=== PATIENT | female | born 1950 | race Hispanic/Latino ===

== ENCOUNTER 2016-10-28 13:22 | Inpatient (IN) | payer MEDICARE ==
[2016-10-28 13:23] VITALS: BMI 34.0
[2016-10-28] MEDS ORDERED: Sodium Chloride 0.9% 1,000 ML IV STA ×2 (13:40→14:01)
[2016-10-28] MEDS ORDERED: Vancomycin 1gm in NS 250ml 1 GM/250 ML BAG IVPB STA (13:42)
[2016-10-28] MEDS ORDERED: Piperacillin/Tazobact 3.375 gm 100 ML IVPB STA ×2 (13:42→19:37)
--- NOTE | 2016-10-28 13:45 | ED PDOC ---
Arrival/HPI - General Chief Complaint: Trauma Time Seen by Provider: 10/28/16 13:26 Historian: Patient - History of Present Illness Narrative History of Present Illness (Text): 10/28/16 13:30 Medina Babin is a 65 year old female, whose past medical history includes hypertension and hyperlipidemia, who presents to the emergency department complaining of reported fall and weakness as per EMS. Patient was found in an unkempt home. Limited history is provided. However patient is able to states that she was trying to cut a watermelon at the time. Patient is noted to be febrile in the emergency department. Patient denies any other complaints at this time. Time/Duration: 1-3 hours Symptom Course: Unchanged Activities at Onset: Light Context: Home Past Medical History - Provider Review Nursing Documentation Reviewed: Yes - Infectious Disease Hx of Infectious Diseases: None - Cardiac Hx Hypertension: Yes Hx Pacemaker: No - Neurological Hx Parkinson's Disease: Yes - HEENT Hx Cataracts: Yes (b/l sx) - Endocrine/Metabolic Hx Hyperthyroidism: Yes - Hematological/Oncological Hx Blood Transfusions: No Hx Blood Transfusion Reaction: No - Integumentary Other/Comment: dark skin under both eyes due to "eye drops for cataracts caused swelling, swelling went down and caused darkened skin", ble dry skin - Musculoskeletal/Rheumatological Hx Musculoskeletal Disorders: Yes - Gastrointestinal Hx Gastritis: Yes - Genitourinary/Gynecological Hx Incontinence: Yes (leakage has weak bladder) - Psychiatric Hx Depression: Yes Hx Emotional Abuse: No Hx Physical Abuse: No Hx Substance Use: No Other/Comment: ANXIETY - Surgical History Other/Comment: left breast lump removed negative 2014 - Anesthesia Hx Anesthesia: No Hx Anesthesia Reactions: No Hx Malignant Hyperthermia: No - Suicidal Assessment Feels Threatened In Home Enviroment: No Family/Social History - Physician Review Nursing Documentation Reviewed: Yes Family/Social History: No Known Family HX Smoking Status: Never Smoked Hx Alcohol Use: Yes (RARE) Hx Substance Use: No Hx Substance Use Treatment: No Allergies/Home Meds Allergies/Adverse Reactions: Allergies No Known Allergies Allergy (Verified 07/24/12 09:59) Home Medications: Home Meds Medication Instructions Recorded Confirmed QUEtiapine [SEROquel] 50 mg PO HS 07/24/12 10/28/16 Ziprasidone HCl [Geodon] 80 mg PO BID 07/30/13 10/28/16 Levothyroxine [Synthroid] 88 mcg PO DAILY 02/02/16 10/28/16 [place] Carbonate [[place] 300 mg PO BID 02/02/16 10/28/16 Carbonate 300MG] Pramipexole Di-HCl [Mirapex] 1 mg PO TID 02/02/16 10/28/16 Telmisartan [Micardis] 40 mg PO DAILY 02/02/16 10/28/16 [id number] CD [Cardizem CD] 240 mg PO DAILY 02/02/16 10/28/16 metFORMIN [glucOPHAGE] 500 mg PO BID 10/28/16 10/28/16 Review of Systems - Physician Review All systems were reviewed & negative as marked: Yes - Review of Systems Constitutional: Other (generalized weakness; fall) Eyes: absent: Vision Changes ENT: absent: Hearing Changes Respiratory: absent: SOB, Cough Cardiovascular: absent: Chest Pain Gastrointestinal: absent: Abdominal Pain Genitourinary Female: absent: Dysuria, Frequency Musculoskeletal: absent: Arthralgias, Back Pain Skin: absent: Rash, Pruritis Neurological: absent: Headache Endocrine: absent: Diaphoresis Hemo/Lymphatic: absent: Adenopathy Physical Exam Vital Signs Reviewed: Yes Vital Signs Temp Pulse Pulse Resp BP Pulse Ox 10/29/16 10:10 99 H 124/60 10/29/16 10:04 93 H 124/60 10/29/16 04:00 108 H 35 H 132/63 94 L 10/29/16 03:00 103 H 34 H 144/76 98 10/29/16 02:30 104 H 35 H 98 10/29/16 02:20 103 H 32 H 97 10/29/16 02:10 106 H 41 H 96 10/29/16 02:01 107 H 34 H 130/74 94 L 10/29/16 02:00 107 H 35 H 94 L 10/29/16 01:50 105 H 33 H 93 L 10/29/16 01:47 111 H 31 H 10/29/16 01:46 111 H 36 H 10/29/16 01:45 112 H 30 H 10/29/16 01:40 108 H 34 H 85 L 10/29/16 01:30 111 H 35 H 177/88 H 85 L 10/29/16 01:20 105 H 39 H 100 10/29/16 01:15 103 H 33 H 147/88 100 10/29/16 01:10 103 H 33 H 99 10/29/16 01:00 101 H 34 H 150/71 93 L 10/29/16 00:50 100 H 28 H 98 10/29/16 00:45 100 H 19 183/77 H 100 10/29/16 00:40 102 H 59 H 97 10/29/16 00:30 99 H 28 H 148/70 99 10/29/16 00:29 101 H 21 98 10/29/16 00:20 99 H 28 H 98 10/29/16 00:15 100 H 30 H 138/73 100 10/29/16 00:10 102 H 32 H 99 10/29/16 00:00 98.8 F 101 H 32 H 123/77 98 10/28/16 23:50 99 H 28 H 97 10/28/16 23:45 98 H 27 H 125/52 L 98 10/28/16 23:40 99 H 32 H 96 10/28/16 23:30 99 H 30 H 122/74 98 10/28/16 23:20 101 H 32 H 98 10/28/16 23:15 105 H 32 H 139/70 99 10/28/16 23:10 103 H 29 H 97 10/28/16 23:01 101 H 51 H 152/68 H 98 10/28/16 23:00 101 H 95 10/28/16 22:50 102 H 28 H 96 10/28/16 22:45 104 H 31 H 143/77 96 10/28/16 22:40 103 H 37 H 96 10/28/16 22:30 104 H 16 152/93 H 96 10/28/16 22:20 104 H 37 H 94 L 10/28/16 22:15 103 H 21 130/53 L 92 L 10/28/16 22:10 102 H 28 H 96 10/28/16 22:00 105 H 35 H 137/84 88 L 10/28/16 21:58 105 H 10/28/16 21:50 105 H 24 96 10/28/16 21:45 104 H 25 H 148/64 97 10/28/16 21:40 104 H 28 H 95 10/28/16 21:30 105 H 33 H 137/66 92 L 10/28/16 21:20 107 H 51 H 96 10/28/16 21:19 108 H 20 10/28/16 21:18 106 H 10/28/16 21:15 107 H 28 H 124/84 80 L 10/28/16 21:10 106 H 26 H 97 10/28/16 21:00 107 H 25 H 123/55 L 90 L 10/28/16 20:50 108 H 27 H 96 10/28/16 20:45 103 H 31 H 139/63 81 L 10/28/16 20:40 106 H 35 H 96 10/28/16 20:35 109 H 31 H 96 10/28/16 20:25 101 F H 10/28/16 20:20 102.4 F H 113 H 23 155/66 H 95 10/28/16 20:05 102.4 F H 111 H 22 141/66 95 10/28/16 19:50 102.4 F H 113 H 23 150/66 95 10/28/16 19:35 102.4 F H 115 H 25 H 137/55 L 96 10/28/16 19:20 102.4 F H 116 H 26 H 163/69 H 95 10/28/16 17:00 99.3 F 116 H 116 H 14 121/61 10/28/16 16:46 100 H 19 130/79 98 10/28/16 15:01 121/61 10/28/16 15:00 99.3 F 10/28/16 13:57 101.2 F H 10/28/16 13:39 101.2 F H 116 H 14 119/72 97 10/28/16 13:25 101.2 F H 117 H 20 119/72 96 Temperature: Febrile Blood Pressure: Normal Pulse: Tachycardic Respiratory Rate: Normal Pain Distress: None - Systems Exam Head: Present: Atraumatic, Normocephalic Pupils: Present: PERRL Extroacular Muscles: Present: EOMI Conjunctiva: Present: Normal Mouth: Present: Moist Mucous Membranes Neck: Present: Normal Range of Motion Respiratory/Chest: Present: Clear to Auscultation, Good Air Exchange. No: Respiratory Distress, Accessory Muscle Use Cardiovascular: Present: Tachycardic. No: Murmurs Abdomen: Present: Normal Bowel Sounds. No: Tenderness, Distention, Peritoneal Signs Back: Present: Normal Inspection Upper Extremity: Present: Normal Inspection. No: Cyanosis, Edema Lower Extremity: Present: Normal Inspection. No: Edema Skin: Present: Warm, Dry, Normal Color. No: Rashes Medical Decision Making ED Course and Treatment: 10/28/16 13:46 Impression: 65 year old female brought in by EMS complaining of reported fall and weakness today. Differential Diagnosis included but are not limited to: Plan: -- EKG -- Chest X-ray -- Head CT w/o contrast -- VBG and Blood Culture -- Urinalysis and Urine Culture -- Labs -- Tylenol, Vancomycin, Zosyn, and IV Fluids -- Reassess and disposition Prior Visits: Notes and results from previous visits were reviewed. Patient last seen in the ED on 02/02/16 for nausea and vomiting for one week. Patient was admitted to hospitalist care for further evaluation. Progress Notes: EKG: Ordered, reviewed, and independently interpreted the EKG. Rate : 110 BPM Rhythm : sinus tachycardia Interpretation : Non-specific ST-T-wave changes Comparison : No interval change from previous on 01/201610/28/16 18:[address] with obstrstring stone. discussed with dr redman. will take pt to or. dr kat accepts. LA improving. b/p 130 systolic stable for tele. - Lab Interpretations Lab Results: 10/28/16 13:40 10/28/16 13:40 Lab Results 10/28/16 13:40: [place] 0.5 10/28/16 13:40: pO2 59 H, VBG pH 7.35, VBG pCO2 36.0 L, VBG HCO3 19.9 L, VBG Total CO2 21.0 L, VBG O2 Sat (Calc) 93.6 H, VBG Base Excess -5.1 L, VBG Potassium 4.2, Sodium 139.0, Chloride 101.0, Glucose 333 H, Lactate 5.5 H*, FiO2 21.0, Venous Blood Potassium 4.2 10/28/16 13:40: Sodium 140, Chloride 103, Potassium 4.1, Carbon Dioxide 19 L, Anion Gap 22 H, BUN 16, Creatinine 1.5 H, Est GFR ( Amer) 42, Est GFR ( Non-Af Amer) 35, Random Glucose 319 H*, Calcium 9.9, Magnesium 2.3 H, Total Bilirubin 0.8, AST 41 H, ALT 61 H, Alkaline Phosphatase 155 H, Lactate Dehydrogenase 581, Total Creatine Kinase 735 H, CK-MB (CK-2) 3.3, CK-MB (CK-2) % Cancelled, Troponin I < 0.01, Total Protein 8.0, Albumin 4.4, Globulin 3.6, Albumin/Globulin Ratio 1.2 10/28/16 13:40: PT 11.6, INR 1.07, APTT 28.7 10/28/16 13:40: WBC 21.9 H D, RBC 4.43, Hgb 13.3, Hct 40.6, MCV 91.6, MCH 30.0, MCHC 32.8, RDW 15.0 H, Plt Count 263, MPV 11.1 H, Gran % 90.9 H, Lymph % (Auto) 2.7 L, [place] % (Auto) 6.3 H, Eos % (Auto) 0.0 L, Baso % (Auto) 0.1, Gran # 19.92 H, Lymph # 0.6 L, [place] # 1.4 H, Eos # 0.0, Baso # 0.02, Neutrophils % (Manual) 92 H, Band Neutrophils % 2, Lymphocytes % (Manual) 5 L, Monocytes % (Manual) 1, Platelet Evaluation Normal, Anisocytosis (manual) Slight I have reviewed the lab results: Yes - RAD Interpretation Radiology Orders: 10/28/16 13:38 CHEST PORTABLE [RAD] Stat 10/28/16 13:40 HEAD W/O CONTRAST [CT] Stat 10/28/16 13:52 PELVIS ONE VIEW [RAD] Stat - Medication Orders Current Medication Orders: Acetaminophen (Tylenol 325mg Tab) 650 mg PO Q6H PRN PRN Reason: Fever >100.4 F Last Admin: 10/29/16 10:05 Dose: 650 mg Diltiazem HCl (Cardizem Cd) 240 mg PO DAILY [facility] Last Admin: 10/29/16 10:10 Dose: 240 mg Comments: unable to scan Famotidine (Pepcid) 20 mg PO 1000,2200 [facility] Last Admin: 10/29/16 10:04 Dose: 20 mg Heparin Sodium (Porcine) (Heparin) 5,000 units SC Q12 [facility] PRN Reason: Protocol Last Admin: 10/29/16 10:06 Dose: 5,000 units Sodium Chloride (Sodium Chloride 0.9%) 1,000 mls @ 150 mls/hr IV .Q6H40M [facility] Ceftriaxone Sodium (Rocephin 1 Gram Ivpb) 1 gm in 100 mls @ 100 mls/hr IVPB DAILY [facility] PRN Reason: Protocol Stop: 11/07/16 10:01 Last Admin: 10/29/16 10:06 Dose: 100 mls/hr Insulin Human Lispro (Humalog Low) 0 units SC ACHS [facility] PRN Reason: Protocol Last Admin: 10/29/16 08:36 Dose: Not Given Non-Admin Reason: NPO Lactobacillus Acidophilus (Bacid Acidophilus) 1 cap PO BID [facility] Last Admin: 10/29/16 10:04 Dose: 1 cap Levothyroxine Sodium (Synthroid) 88 mcg PO DAILY [facility] [place] Carbonate ([place] Carbonate 300mg) 300 mg PO BID [facility] Losartan Potassium (Cozaar) 50 mg PO DAILY [facility] Last Admin: 10/29/16 10:04 Dose: 50 mg Morphine Sulfate (Morphine) 1 mg IVP Q4H PRN PRN Reason: Pain, moderate (4-7) Phenazopyridine HCl (Pyridium) 200 mg PO TID [facility] Last Admin: 10/29/16 10:04 Dose: 200 mg Pramipexole Dihydrochloride (Mirapex) 1 mg PO TID [facility] Quetiapine Fumarate (Seroquel) 50 mg PO HS [facility] Last Admin: 10/28/16 22:13 Dose: 50 mg Re-Assess: Reassess Psych Meds Document 10/28/16 23:13 JEANNETTE (Rec: 10/29/16 00:30 JEANNETTE [facility] [id number] Reassess Psych Med Effective Ziprasidone (Geodon Cap) 80 mg PO BID [facility] Discontinued Medications Acetaminophen (Tylenol 325mg Tab) 975 mg PO STAT [facility] Stop: 10/28/16 13:41 Last Admin: 10/28/16 13:57 Dose: 975 mg Acetaminophen (Tylenol 325mg Tab) 650 mg PO STAT [facility] Stop: 10/28/16 19:22 Last Admin: 10/28/16 19:46 Dose: 650 mg Acetaminophen (Tylenol 325mg Tab) Confirm Administered Dose 650 mg .ROUTE .STK- MED ONE Stop: 10/28/16 19:44 Fentanyl (Fentanyl) Confirm Administered Dose 100 mcg .ROUTE .STK-MED ONE Stop: 10/28/16 18:38 Hydromorphone HCl (Dilaudid) 0.5 mg IVP Q15M PRN PRN Reason: Pain, moderate (4-7) Stop: 10/28/16 21:20 Sodium Chloride (Sodium Chloride 0.9%) 1,000 mls @ 999 mls/hr IV .Q1H1M [facility] Stop: 10/28/16 14:40 Last Admin: 10/28/16 13:52 Dose: 999 mls/hr Vancomycin HCl (Vancomycin 1gm) 1 gm in 250 mls @ 167 mls/hr IVPB STAT [facility] PRN Reason: Protocol Stop: 10/28/16 15:11 Last Admin: 10/28/16 14:54 Dose: 167 mls/hr Piperacillin Sod/Tazobactam Sod (Zosyn 3.375 In Ns 100ml) 100 mls @ 200 mls/hr IVPB STAT [facility] PRN Reason: Protocol Stop: 10/28/16 14:11 Last Admin: 10/28/16 13:57 Dose: 200 mls/hr Sodium Chloride (Sodium Chloride 0.9%) 1,000 mls @ 999 mls/hr IV .Q1H1M [facility] Stop: 10/28/16 15:01 Last Admin: 10/28/16 14:19 Dose: 999 mls/hr Sodium Chloride (Sodium Chloride 0.9%) 500 mls @ 999 mls/hr IV .Q31M [facility] Stop: 10/28/16 14:35 Last Admin: 10/28/16 14:54 Dose: 999 mls/hr Lactated Ringer's (Lactated Ringer's) 1,000 mls @ 75 mls/hr IV .[id number] [facility] Stop: 10/28/16 21:20 Last Admin: 10/28/16 19:20 Dose: 75 mls/hr Piperacillin Sod/Tazobactam Sod (Zosyn 3.375 In Ns 100ml) 100 mls @ 200 mls/hr IVPB STAT [facility] PRN Reason: Protocol Stop: 10/28/16 20:06 Last Admin: 10/28/16 19:39 Dose: 200 mls/hr Meropenem 1g/NS 100mL IVPB (Meropenem 1g/Ns 100ml Ivpb) 1 gm in 100 mls @ 100 mls/hr IVPB STAT [facility] PRN Reason: Protocol Stop: 10/28/16 20:51 Last Admin: 10/28/16 21:00 Dose: 100 mls/hr Sodium Chloride (Sodium Chloride 0.9%) 1,000 mls @ 125 mls/hr IV .Q8H [facility] Last Admin: 10/29/16 06:09 Dose: 125 mls/hr Sodium Chloride (Sodium Chloride 0.9%) 1,000 mls @ 999 mls/hr IV .Q1H1M ONE Stop: 10/29/16 06:53 Last Admin: 10/29/16 08:43 Dose: Iohexol (Omnipaque 240 (50 Ml)) Confirm Administered Dose 50 ml .ROUTE .STK-MED ONE Stop: 10/28/16 17:40 Lidocaine HCl (Xylocaine 2% (Uro-Jet)) Confirm Administered Dose 1 ea .ROUTE .STK-MED ONE Stop: 10/28/16 17:40 [place] Carbonate ([place] Carbonate 300mg) 300 mg PO STAT [facility] Stop: 10/28/16 22:53 Last Admin: 10/28/16 23:07 Dose: 300 mg Re-Assess: Reassess Psych Meds Document 10/29/16 00:07 JEANNETTE (Rec: 10/29/16 00:30 JEANNETTE [facility] [id number] Reassess Psych Med Effective Ondansetron HCl (Zofran Inj) Confirm Administered Dose 4 mg .ROUTE .STK-MED ONE Stop: 10/28/16 18:55 Piperacillin Sod/Tazobactam Sod (Zosyn) Confirm Administered Dose 3.375 gm IVPB .STK-MED ONE Stop: 10/28/16 19:25 Pneumococcal Polyvalent Vaccine (Pneumovax 23 Vaccine) 0.5 ml IM .ONCE ONE Stop: 10/28/16 17:35 Propofol (Diprivan) Confirm Administered Dose 200 mg .ROUTE .STK-MED ONE Stop: 10/28/16 18:38 - Scribe Statement The provider has reviewed the documentation as recorded by the Danyiberasmo Bautista Provider Scribe Attestation: All medical record entries made by the Scribe were at my direction and personally dictated by me. I have reviewed the chart and agree that the record accurately reflects my personal performance of the history, physical exam, medical decision making, and the department course for this patient. I have also personally directed, reviewed, and agree with the discharge instructions and disposition. Disposition/Present on Arrival - Present on Arrival Any Indicators Present on Arrival: No History of DVT/PE: No History of Uncontrolled Diabetes: No Urinary Catheter: No History of Decub. Ulcer: No History Surgical Site Infection Following: None - Disposition Have Diagnosis and Disposition been Completed?: Yes Diagnosis: Sepsis, UTI (urinary tract infection), Renal stone Disposition: HOSPITALIZED Disposition Time: 18:14 Patient Problems: Current Active Problems Problem Status Onset Renal stone Acute Sepsis Acute UTI (urinary tract infection) Acute Condition: FAIR
[2016-10-28 13:56] LABS: VENOUS BLOOD GAS BASE EXCESS -5.1 mmol/L (0.0-2.0); VENOUS BLOOD PH 7.35 (7.32-7.43)
[2016-10-28 14:00] LABS: BASO # 0.02 K/mm3 (0.0-2.0); BASO % 0.1 % (0.0-3.0); GRAN # 19.92 (1.4-6.5); GRAN % 90.9 % (50.0-68.0); HEMATOCRIT 40.6 % (36.0-48.0); LYMPH # 0.6 (1.2-3.4); LYMPH % 2.7 % (22.0-35.0); MEAN CELL VOLUME 91.6 fl (80.0-105.0); MEAN CORPUSCULAR HGB CONC 32.8 g/dl (31.0-37.0); MEAN PLATELET VOLUME 11.1 fl (7.0-11.0); MONO # 1.4 (0.1-0.6); MONO % 6.3 % (1.0-6.0); PLATELET COUNT 263 10^3/uL (120.0-450.0); WHITE BLOOD COUNT 21.9 10^3/ul (4.5-11.0)
--- NOTE | 2016-10-28 14:04 | RAD ---
HISTORY: fever COMPARISON: 02/02/2016 FINDINGS: LUNGS: Abnormal opacity at left lung base overlapping the left hemidiaphragm. This may be a lower lobe infiltrate or may be extrinsic to the patient. No other abnormal opacity is identified. PLEURA: No significant pleural effusion identified, no pneumothorax apparent. CARDIOVASCULAR: Normal. OSSEOUS STRUCTURES: No significant abnormalities. VISUALIZED UPPER ABDOMEN: Normal. OTHER FINDINGS: None. IMPRESSION: Possible left lower lobe infiltrate versus extrinsic density superimposed. Followup advised.
[2016-10-28] MEDS ORDERED: Sodium Chloride 0.9% 500 ML IV STA (14:05)
[2016-10-28 14:06] LABS: ALB/GLOB RATIO 1.2 (1.1-1.8); ALKALINE PHOSPHATASE 155 U/L (38-133); ALT/SGPT 61 U/L (7-56); AST/SGOT 41 U/L (15-39); BILIRUBIN,TOTAL 0.8 mg/dL (0.2-1.3); BLOOD UREA NITROGEN 16 mg/dL (7-21); CALCIUM 9.9 mg/dL (8.4-10.5); CARBON DIOXIDE 19 mmol/L (21-33); CHLORIDE 103 mmol/L (98-107); GFR AFRICAN-AMERICAN 42; MAGNESIUM 2.3 mg/dL (1.7-2.2); POTASSIUM 4.1 mmol/L (3.6-5.0); SODIUM 140 mmol/L (132-148)
[2016-10-28 14:12] LABS: INR 1.07 (0.93-1.08); PARTIAL THROMBOPLASTIN TIME 28.7 Seconds (23.7-30.8)
[2016-10-28 14:15] LABS: GLUCOSE,RANDOM 319 mg/dL (70-110)
[2016-10-28 14:17] LABS: TROPONIN I < 0.01 ng/mL
[2016-10-28 14:54] LABS: BAND 2 % (0-2); NEUTROPHIL 92 % (50.0-70.0)
--- NOTE | 2016-10-28 14:54 | CT ---
PROCEDURE: CT HEAD WITHOUT CONTRAST. HISTORY: fall/syncope COMPARISON: None available. TECHNIQUE: Axial computed tomography images were obtained through the head/brain without intravenous contrast. Radiation dose: Total exam DLP = 725.84 mGy-cm. This CT exam was performed using one or more of the following dose reduction techniques: Automated exposure control, adjustment of the mA and/or kV according to patient size, and/or use of iterative reconstruction technique. FINDINGS: HEMORRHAGE: No intracranial hemorrhage. BRAIN: No mass effect or edema. Mild diffuse atrophy. Mild periventricular white matter lucency with patchy and confluent areas of deep and subcortical white matter lucency, consistent with microvascular ischemic change. No evidence of acute infarct. . VENTRICLES: Unremarkable. No hydrocephalus. CALVARIUM: Unremarkable. PARANASAL SINUSES: Unremarkable as visualized. No significant inflammatory changes. MASTOID AIR CELLS: Unremarkable as visualized. No inflammatory changes. OTHER FINDINGS: None. IMPRESSION: No intracranial mass, hemorrhage or evidence of acute infarct. Age related involutional changes.
[2016-10-28 14:55] LABS: ANISOCYTOSIS SLIGHT; PLATELET ESTIMATE NORMAL (NORMAL)
--- NOTE | 2016-10-28 15:10 | CARD ---
APPROVED REPORT EKG Measurement Heart [id number] <Conclusion> Sinus tachycardia with 1st degree AV block Left axis deviation ST & T wave abnormality, consider anterior ischemia Abnormal ECG
--- NOTE | 2016-10-28 15:34 | RAD ---
PROCEDURE: Radiographs of the pelvis. HISTORY: fall COMPARISON: None. FINDINGS: BONES: Pelvic Bones: Unremarkable. Hips: There is linear lucency across the subcapital left hip without definite cortical disruption. This may be artifactual but cannot rule out nondisplaced subcapital fracture. Osteoarthritis of both hips, right greater than left. Extensive marginal bony productive change of the right hip. No articular erosions. JOINTS: Sacroiliac Joints: Unremarkable. Pubic Symphysis: Unremarkable. OTHER FINDINGS: None. IMPRESSION: Subcapital lucency of left hip. Cannot rule out nondisplaced subcapital fracture. Bilateral osteoarthritis of the hip.
[2016-10-28 15:53] LABS: URINE BILIRUBIN NEGATIVE (NEGATIVE); URINE BLOOD MODERATE (NEGATIVE); URINE GLUCOSE (UA) 250 mg/dL (NEGATIVE); URINE KETONE NEGATIVE (NEGATIVE); URINE LEUKOCYTE ESTERASE LARGE Leu/uL (NEGATIVE); URINE PROTEIN 100 mg/dL (<30 mg/dL); URINE UROBILINOGEN 0.2 E.U./dL (<1 E.U./dL)
[2016-10-28 15:56] LABS: URINE APPEARANCE TURBID (CLEAR); URINE COLOR YELLOW (YELLOW)
[2016-10-28 16:04] LABS: URINE BACTERIA MANY (NEG); URINE WBC 25 - 30 /hpf (0-6)
--- NOTE | 2016-10-28 16:49 | CT ---
PROCEDURE: CT Chest, Abdomen and Pelvis without intravenous contrast HISTORY: sepsis/possible pna/possible hip fx COMPARISON: 02/02/2016 TECHNIQUE: Radiation dose: Total exam DLP = 934 mGy-cm. This CT exam was performed using one or more of the following dose reduction techniques: Automated exposure control, adjustment of the mA and/or kV according to patient size, and/or use of iterative reconstruction technique. FINDINGS: CT CHEST WITHOUT CONTRAST: LUNGS: Clear. No nodule, mass or consolidation. MEDIASTINUM: Unremarkable. Normal caliber aorta and pulmonary arterial trunk. Normal size heart. LYMPH NODES: Unremarkable. PLEURA: Unremarkable. No pneumothorax. No pleural fluid. BONES: Unremarkable. OTHER FINDINGS: None. CT ABDOMEN AND PELVIS: LIVER: There is severe fatty infiltration of the liver and hepatomegaly. GALLBLADDER AND BILE DUCTS: Gallbladder removed PANCREAS: Unremarkable. No gross lesion or ductal dilatation. SPLEEN: Unremarkable. ADRENALS: Unremarkable. No mass. KIDNEYS AND URETERS: There is right-sided hydronephrosis and perinephric stranding. There is a distal ureteral stone measuring 6 mm in diameter. This is seen on axial image 203 of series 2 as well as coronal image 97. There is bilateral nephrolithiasis VASCULATURE: Unremarkable. No aortic aneurysm. BOWEL: Unremarkable. No obstruction. No gross mural thickening. APPENDIX: Normal appendix. PERITONEUM: Unremarkable. No free fluid. No free air. LYMPH NODES: Unremarkable. No enlarged lymph nodes. BLADDER: Unremarkable. REPRODUCTIVE: Unremarkable. BONES: No acute fracture. OTHER FINDINGS: None. IMPRESSION: Obstructing 6 mm right distal ureteral stone with moderate hydronephrosis and perinephric stranding. Bilateral nephrolithiasis. Severe fatty infiltration of the liver and hepatomegaly
[2016-10-28 17:25] LABS: VENOUS BLOOD GAS BASE EXCESS -4.8 mmol/L (0.0-2.0); VENOUS BLOOD PH 7.28 (7.32-7.43)
[2016-10-28] MEDS ORDERED: Pneumococcal 23-Valent Vaccine IM ONE (17:34)
[2016-10-28] MEDS ORDERED: Lidocaine 2% Jelly (Uro-Jet) ONE (17:39)
[2016-10-28] MEDS ORDERED: Iohexol 240 (50 ml) ONE (17:39)
[2016-10-28] MEDS ORDERED: Propofol 10 mg/ml Inj (20 ML) ONE (18:37)
[2016-10-28] MEDS ORDERED: Lactated Ringer's 1,000 ML IV SCH (19:19)
[2016-10-28] MEDS ORDERED: HYDROmorphone 0.5 mg/0.5 ml ISec IVP PRN (19:19)
[2016-10-28] MEDS ORDERED: Piperacillin/Tazobact 3.375 gm Inj IVPB ONE (19:24)
[2016-10-28] MEDS ORDERED: Meropenem 1g/NS 100mL IVPB 1 GM/100 ML PIGGYBACK IVPB STA (19:52)
[2016-10-28] MEDS ORDERED: Meropenem 1g/NS 100mL IVPB 1 GM/100 ML PIGGYBACK IVPB SCH (20:00)
--- NOTE | 2016-10-28 20:09 | CP.PCM.CON ---
Past Patient History - Infectious Disease Hx of Infectious Diseases: None - Past Social History Smoking Status: Never Smoked - CARDIAC Hx Hypertension: Yes Hx Pacemaker: No - NEUROLOGICAL Hx Parkinson's Disease: Yes - HEENT Hx Cataracts: Yes (b/l sx) - ENDOCRINE/METABOLIC Hx Hyperthyroidism: Yes - HEMATOLOGICAL/ONCOLOGICAL Hx Blood Transfusions: No Hx Blood Transfusion Reaction: No - INTEGUMENTARY Other/Comment: dark skin under both eyes due to "eye drops for cataracts caused swelling, swelling went down and caused darkened skin", ble dry skin - MUSCULOSKELETAL/RHEUMATOLOGICAL Hx Musculoskeletal Disorders: Yes - GASTROINTESTINAL Hx Gastritis: Yes - GENITOURINARY/GYNECOLOGICAL Hx Incontinence: Yes (leakage has weak bladder) - PSYCHIATRIC Hx Depression: Yes Hx Emotional Abuse: No Hx Physical Abuse: No Hx Substance Use: No Other/Comment: ANXIETY - SURGICAL HISTORY Other/Comment: left breast lump removed negative 2013 - ANESTHESIA Hx Anesthesia: No Hx Anesthesia Reactions: No Hx Malignant Hyperthermia: No Meds Allergies/Adverse Reactions: Allergies Allergy/AdvReac Type Severity Reaction Status Date / Time No Known Allergies Allergy Verified 07/24/12 09:59 - Medications Medications: Current Medications Diltiazem HCl (Cardizem Cd) 240 mg PO DAILY [facility] Hydromorphone HCl (Dilaudid) 0.5 mg IVP Q15M PRN PRN Reason: Pain, moderate (4-7) Stop: 10/28/16 21:20 Lactated Ringer's (Lactated Ringer's) 1,000 mls @ 75 mls/hr IV .[id number] [facility] Stop: 10/28/16 21:20 Last Admin: 10/28/16 19:20 Dose: 75 mls/hr Piperacillin Sod/Tazobactam Sod (Zosyn 3.375 In Ns 100ml) 100 mls @ 200 mls/hr IVPB STAT [facility] PRN Reason: Protocol Stop: 10/28/16 20:06 Last Admin: 10/28/16 19:39 Dose: 200 mls/hr Meropenem 1g/NS 100mL IVPB (Meropenem 1g/Ns 100ml Ivpb) 1 gm in 100 mls @ 100 mls/hr IVPB STAT [facility] PRN Reason: Protocol Stop: 10/28/16 20:51 Meropenem 1g/NS 100mL IVPB (Meropenem 1g/Ns 100ml Ivpb) 1 gm in 100 mls @ 100 mls/hr IVPB Q12H [facility] Stop: 10/29/16 08:59 Sodium Chloride (Sodium Chloride 0.9%) 1,000 mls @ 125 mls/hr IV .Q8H [facility] Levothyroxine Sodium (Synthroid) 88 mcg PO DAILY [facility] [place] Carbonate ([place] Carbonate 300mg) 300 mg PO BID [facility] Non-Formulary Medication (Pramipexole Di-Hcl [Mirapex]) 1 mg PO TID [facility] Non-Formulary Medication (Quetiapine [Seroquel]) 50 mg PO HS [facility] Non-Formulary Medication (Telmisartan [Micardis]) 40 mg PO DAILY [facility] Non-Formulary Medication (Ziprasidone Hcl [Geodon]) 80 mg PO BID [facility] Phenazopyridine HCl (Pyridium) 200 mg PO TID [facility] Results - Vital Signs Recent Vital Signs: Last Vital Signs Temp 102.4 F H 10/28/16 19:50 Pulse 113 H 10/28/16 19:50 Resp 23 10/28/16 19:50 BP 150/66 10/28/16 19:50 Pulse Ox 95 10/28/16 19:50 - Labs Result Diagrams: 10/28/16 13:40 10/28/16 13:40 Labs: Laboratory Results - last 24 hr 10/28/16 10/28/16 15:30 17:10 pO2 44 VBG pH 7.28 L VBG pCO2 47.0 VBG HCO3 22.1 VBG Total CO2 23.5 VBG O2 Sat (Calc) 82.0 H VBG Base Excess -4.8 L VBG Potassium 4.3 Sodium 143.0 Chloride 112.0 H Glucose 236 H Lactate 2.7 H FiO2 21.0 Venous Blood Potassium 4.3 Urine Color Yellow Urine Appearance Turbid Urine pH 6.0 Ur Specific [place] 1.025 Urine Protein 100 H Urine Glucose (UA) 250 H Urine Ketones Negative Urine Blood Moderate H Urine Nitrate Negative Urine Bilirubin Negative Urine Urobilinogen 0.2 Ur Leukocyte Esterase Large H Urine RBC 2 - 5 Urine WBC 25 - 30 Urine Bacteria Many Assessment & Plan - Assessment and Plan (Free Text) Plan: Neuro Cardio Pulm GI Renal Heme/Onc MSK ID Lines GI ppx: Pepcid 20mg po bid DVT ppx: SCDs, VTE c/i secondary to procedure Diet: Heart healthy mod consistent carb diet
[2016-10-28] MEDS ORDERED: Morphine 2 mg/ml ISec IVP PRN (20:11)
[2016-10-28] MEDS: Sodium Chloride 0.9% 1,000 ML IV SCH (21:00)
[2016-10-28] MEDS: Insulin Lispro (humaLOG) LOW Coverage SC SCH (22:08)
--- NOTE | 2016-10-28 22:53 | OP ---
PROCEDURE DATE: 10/28/2016 PREOPERATIVE DIAGNOSES: Urosepsis, obstructing distal right ureteral calculus. POSTOPERATIVE DIAGNOSES: Urosepsis, obstructing distal right ureteral calculus. PROCEDURES: Cystoscopy, insertion of right pigtail stent. SURGEON: Dr. Miranda. TYPE OF ANESTHESIA: LMA. DESCRIPTION OF OPERATION: After adequate LMA anesthesia was given, the patient was placed lithotomy, prepped and draped in the usual manner. A 22-Czech cystourethroscope was introduced. The urine was very turbid and purulent. Urine was obtained for C and S. The bladder was irrigated until I could see clearly inside. The bladder showed no tumors, foreign bodies or stones. There was no efflux from the right orifice, clear efflux from the left. A open-ended catheter with 0.035 Glidewire was able to be advanced up to the right renal pelvis. I could then advance the open-ended catheter over the Glidewire. I then replaced the Glidewire with a 0.035 sensor wire and removed the open-ended catheter. A 6-Czech 24 cm pigtail stent was then attempted, we passed over the sensor wire, would not go by the stone. I removed the 24 cm 6-Czech stent and replaced it with a multi length 22-32 cm 4.7-Czech multi-length stent. This was easily passed up to the right kidney. The wire was removed and it coiled nicely in the right renal pelvis and the bladder. The bladder was drained, cystoscope was removed. The patient was awakened and brought to the recovery room in good condition. Meng Miranda MD
--- NOTE | 2016-10-28 23:18 | CP.PCM.CON ---
<RENAE FREY - Last Filed: 10/29/16 04:37> History of Present Illness - History of Present Illness History of Present Illness: Renae Frey, PGY1, Consult Note for Dr. Azar: CC: Fall, Pyelonephritis HPI: 65F with PMH nephrolithiasis, UTI, falls, presents to ED s/p fall x1. Pt tripped on her floor while in the kitchen, hitting her elbows bilaterally and her left hip, was down on the floor for about 7 hours, before the neighbors discovered her in the house and called EMS. It is unclear whether pt had any LOC or fell asleep for a few hours while she was down. She denies any cp, sob, blurry vision, palpitations, dizziness, syncope, tongue biting, urinary/fecal incontinence, vasovagal feeling, increased perspiration, weakness prior to the fall. Otherwise, pt also denies any cough, sore throat, f/c, n/v, abdominal pain, hematemesis, diarrhea, constipation, decreased appetie, anorexia, gross hematuria, AMS/disorientation, dysuria, urgency, hematochezia/melena, leg swelling, rash. Pt c/o nonradiating crampy bilateral back pain for past few days. In ED, pt febrile 101.2, tachycardic 117 S. tachy, bp 119/72, leukocytosis 21.9 with 2 bands, acidotic HCO3 19, Cr 1.5 (baseline 1.0-1.2), elevated CK 735, lactate 5.5, transaminitis, neg trop and ck mbx1, CT abd pelvis showed 6 mm obstructing stone in right distal ureter with moderate hydronephrosis and perinephric stranding. Received 3L NS boluses, Vanco x1 dose and zosyn x 2 doses. Pt went to OR with Dr. Miranda for cystoscopy and insertion of right pigtail stent. ICU consulted for management of post op care s/p cystoscopy, pig tail stent placement for nephrolithiasis and pyelonephritis. 10 point ROS obtained and neg except as noted per HPI. PMD: Suczewski Uro: Milly/Ruth Neuro: Anselmi Psych: Hriso PMHX: Nephrolithiasis (last stone 5 years ago- passed w/o surgical intervention) , UTI, HTN, DM, HLD, Hypothyroidism, Bipolar d/o, Parkinson's, depression, urinary incontinence (improved with botox injections for bladder), Hx of Falls, PSHX: cholecystectomy, breast biopsy Home Medications: Seroquel, Geodon, Synthroid, [place] Carbonate, Mirapex, Telmisartan, Cardizem, Metformin Allergies: NKDA Family hx: mother from liver [place] SH: lives at apartment alone. Walks independently, able to do her ADLs, no homemaker at home. Has no family/friends living nearby. Former smoker, quit 12 years ago, 2 ppdx9 years, 18 pack year history; drinks 1 glass of wine per day; previously used to drink 6 packs of beer/dayx9 years. Denies drug use. No recent travel/sick contacts. Review of Systems - Review of Systems All systems: reviewed and no additional remarkable complaints except Review of Systems: as per HPI Past Patient History - Infectious Disease Hx of Infectious Diseases: None - Past Social History Smoking Status: Never Smoked - CARDIAC Hx Hypertension: Yes Hx Pacemaker: No - NEUROLOGICAL Hx Parkinson's Disease: Yes - HEENT Hx Cataracts: Yes (b/l sx) - ENDOCRINE/METABOLIC Hx Hyperthyroidism: Yes - HEMATOLOGICAL/ONCOLOGICAL Hx Blood Transfusions: No Hx Blood Transfusion Reaction: No - INTEGUMENTARY Other/Comment: dark skin under both eyes due to "eye drops for cataracts caused swelling, swelling went down and caused darkened skin", ble dry skin - MUSCULOSKELETAL/RHEUMATOLOGICAL Hx Musculoskeletal Disorders: Yes - GASTROINTESTINAL Hx Gastritis: Yes - GENITOURINARY/GYNECOLOGICAL Hx Incontinence: Yes (leakage has weak bladder) - PSYCHIATRIC Hx Depression: Yes Hx Emotional Abuse: No Hx Physical Abuse: No Hx Substance Use: No Other/Comment: ANXIETY - SURGICAL HISTORY Other/Comment: left breast lump removed negative 2013 - ANESTHESIA Hx Anesthesia: No Hx Anesthesia Reactions: No Hx Malignant Hyperthermia: No Meds Allergies/Adverse Reactions: Allergies Allergy/AdvReac Type Severity Reaction Status Date / Time No Known Allergies Allergy Verified 07/24/12 09:59 - Medications Medications: Current Medications Acetaminophen (Tylenol 325mg Tab) 650 mg PO Q6H PRN PRN Reason: Fever >100.4 F Diltiazem HCl (Cardizem Cd) 240 mg PO DAILY [facility] Famotidine (Pepcid) 20 mg PO 1000,2200 [facility] Last Admin: 10/28/16 22:13 Dose: 20 mg Meropenem 1g/NS 100mL IVPB (Meropenem 1g/Ns 100ml Ivpb) 1 gm in 100 mls @ 100 mls/hr IVPB Q12H [facility] Stop: 11/04/16 20:01 Sodium Chloride (Sodium Chloride 0.9%) 1,000 mls @ 125 mls/hr IV .Q8H [facility] Last Admin: 10/28/16 21:00 Dose: 125 mls/hr Insulin Human Lispro (Humalog Low) 0 units SC ACHS [facility] PRN Reason: Protocol Last Admin: 10/28/16 22:08 Dose: 2 units Lactobacillus Acidophilus (Bacid Acidophilus) 1 cap PO BID [facility] Levothyroxine Sodium (Synthroid) 88 mcg PO DAILY [facility] [place] Carbonate ([place] Carbonate 300mg) 300 mg PO BID [facility] Losartan Potassium (Cozaar) 50 mg PO DAILY [facility] Morphine Sulfate (Morphine) 1 mg IVP Q4H PRN PRN Reason: Pain, moderate (4-7) Phenazopyridine HCl (Pyridium) 200 mg PO TID [facility] Pramipexole Dihydrochloride (Mirapex) 1 mg PO TID [facility] Quetiapine Fumarate (Seroquel) 50 mg PO HS [facility] Last Admin: 10/28/16 22:13 Dose: 50 mg Ziprasidone (Geodon Cap) 80 mg PO BID [facility] Physical Exam - Constitutional Appears: No Acute Distress, Other Additional comments: elderly female, resting in bed - Head Exam Head Exam: ATRAUMATIC, NORMOCEPHALIC - Eye Exam Eye Exam: EOMI, Normal appearance, PERRL. absent: Conjunctival injection, Nystagmus, Scleral icterus Pupil Exam: NORMAL ACCOMODATION, PERRL. absent: Irregular, Unequal - ENT Exam ENT Exam: Mucous Membranes Dry Additional comments: No pharyngeal erythema - Neck Exam Neck exam: Positive for: Full Rom, Normal Inspection. Negative for: Lymphadenopathy, Tenderness, Thyromegaly - Respiratory Exam Respiratory Exam: Decreased Breath Sounds. absent: Accessory Muscle Use, Chest Wall Tenderness, Rhonchi, Wheezes Additional comments: Mild crackles LLL. - Cardiovascular Exam Cardiovascular Exam: Tachycardia, RRR, +S1, +S2. absent: Systolic Murmur - GI/Abdominal Exam GI & Abdominal Exam: Distended Additional comments: obese female, + BS, distended, firm, nontender, no guarding, rebound. - Rectal Exam Rectal Exam: Deferred - Extremities Exam Extremities exam: Positive for: normal inspection, pedal pulses present. Negative for: calf tenderness, pedal edema - Back Exam Back exam: NORMAL INSPECTION. absent: CVA tenderness (L), CVA tenderness (R), paraspinal tenderness, rash noted, vertebral tenderness - Neurological Exam Neurological exam: Alert, CN II-XII Intact, Oriented x3, Reflexes Normal Additional comments: Sensation intact throughout, - Psychiatric Exam Psychiatric exam: Normal Affect, Normal Mood - Skin Skin Exam: Dry, Normal Color, Warm Additional comments: + b/l elbow bruising. Results - Vital Signs Recent Vital Signs: Last Vital Signs Temp 101 F H 10/28/16 20:25 Pulse 105 H 10/28/16 21:50 Resp 24 10/28/16 21:50 BP 148/64 10/28/16 21:45 Pulse Ox 96 10/28/16 21:50 - Labs Result Diagrams: 10/28/16 13:40 10/28/16 13:40 Labs: Laboratory Results - last 24 hr 10/28/16 10/28/16 10/28/16 15:30 17:10 22:01 pO2 44 VBG pH 7.28 L VBG pCO2 47.0 VBG HCO3 22.1 VBG Total CO2 23.5 VBG O2 Sat (Calc) 82.0 H VBG Base Excess -4.8 L VBG Potassium 4.3 Sodium 143.0 Chloride 112.0 H Glucose 236 H Lactate 2.7 H FiO2 21.0 POC Glucose (mg/dL) 302 H Lactic Acid Venous Blood Potassium 4.3 Urine Color Yellow Urine Appearance Turbid Urine pH 6.0 Ur Specific [place] 1.025 Urine Protein 100 H Urine Glucose (UA) 250 H Urine Ketones Negative Urine Blood Moderate H Urine Nitrate Negative Urine Bilirubin Negative Urine Urobilinogen 0.2 Ur Leukocyte Esterase Large H Urine RBC 2 - 5 Urine WBC 25 - 30 Urine Bacteria Many 10/28/16 22:27 pO2 VBG pH VBG pCO2 VBG HCO3 VBG Total CO2 VBG O2 Sat (Calc) VBG Base Excess VBG Potassium Sodium Chloride Glucose Lactate FiO2 POC Glucose (mg/dL) Lactic Acid 1.5 Venous Blood Potassium Urine Color Urine Appearance Urine pH Ur Specific [place] Urine Protein Urine Glucose (UA) Urine Ketones Urine Blood Urine Nitrate Urine Bilirubin Urine Urobilinogen Ur Leukocyte Esterase Urine RBC Urine WBC Urine Bacteria Assessment & Plan - Assessment and Plan (Free Text) Assessment: 65 F with significant PMH of nephrolithiasis, UTI, Parkinson's, HTN, and DM, who presents with fall x1 at home, found to have R pyelonephritis 2/2 an obstructing stone, s/p cystoscopy and R pigtail stent, admitted to ICU for monitoring. Plan: Fall: - Likely mechanical vs cardiac etiology (arrhythmia vs carotid stenosis vs vavular disease vs CAD) vs orthostatic vs seizure vs hypoglycemia - After patient tripped on her kitchen floor, pt was down on the floor for 7 hours. Of those, pt reports initially losing consciousness for 2 hours. - Unable to obtain orthostatics in ED, now pt has had many NS boluses and IVF. - EKG showed HR 110 sinus tachy with 1st degree AV block. left axis deviation. no prolonged QTc - Will obtain Carotid US, Echocardiogram, tele monitoring x24hrs - Consider Cardio c/s, consider stress test. Pt previously had a stress test and echo done 4 years ago, pt reports that they were "normal." - On fall precautions. - Consider Neuro c/s, consider EEG - Initial BS in ED 319 - C/w IVF Sepsis 2/2 likely right sided pyelonephritis: - Pt c/o b/l crampy "kidney" back pain x few days, nonradiating, denies n/v, anorexia, gross hematuria, AMS. - In Ed, pt febrile 101.1F, tachycardic 117, leukocytosis 21.9 with 2 bands, lactate 5.5. - Received 3 L NS bolus, Vancox1, Zosyn x2 - Lactate 5.5->2.7 - Ct abd pelvis showed 6 mm obstructing stone in right distal ureter with moderate hydronephrosis and perinephric stranding. b/l nephrolithiasis. Severe fatty infiltration of liver, hepatomegaly. - Pt s/p cystoscopy and right pigtail stent insertion in OR today with Dr. Miranda - F/u Dr. Miranda recs - Started empirically on Merrem 1 gm q12h, c/w IVF at 125, tylenol prn fever - f/u urine culture - F/u ID recs, procalcitonin Aniongap Metabolic acidosis: - 2/2 likely infection vs home med metformin usage - Agap 18 - Pt on Merrem for pyelonephritis - Hold home med metformin Early rhabdomyolysis: - Pt found down at home x 7 hrs. - CPK 735 (3X ULN), ALP 155, Mg 2.3, Cr 1.5 - received 3L NS boluses in ED, currently on NS @125/h - Repeat CPK q6-12h Transaminitis: - likely 2/2 alcoholic hepatitis vs Hep C - Pt has a hx of ETOH abuse 6 packs of beer/day for 9 years, reduced to 1 glass of wine/day x past 12 years - AST 41, ALT 61 - Coags nrml, albumin 4.4 - CT abd pelvis shows Severe fatty infiltration of liver, hepatomegaly. - Consider hep panel. - Pt has a distended abdomen on exam. No fluid wave or shifting dullness noted. - Will obtain Abdominal US to r/o ascites. H/o Bipolar disorder: - Li level 0.5 - c/w home med licarbonate H/o hypothyroidism: - c/w home med levothyroxine - f/u TSH H/o DM: - hold home med metformin and geodon - on iss H/o HLD: - no statin on home med - f/u lipid panel H/o depression: - c/w home med Seroquel DVT PPX: postop - will hold GI PPX: Pepcid Discussed with senior resident, Claudette, and attending, Dr Azar. Renae Frey, PGY1 - Date & Time Date: 10/29/16 Time: 01:46 <Nissa FERNANDEZ,Darwin - Last Filed: 10/29/16 06:50> Meds - Medications Medications: Current Medications Acetaminophen (Tylenol 325mg Tab) 650 mg PO Q6H PRN PRN Reason: Fever >100.4 F Diltiazem HCl (Cardizem Cd) 240 mg PO DAILY [facility] Famotidine (Pepcid) 20 mg PO 1000,2200 [facility] Last Admin: 10/28/16 22:13 Dose: 20 mg Meropenem 1g/NS 100mL IVPB (Meropenem 1g/Ns 100ml Ivpb) 1 gm in 100 mls @ 100 mls/hr IVPB Q12H [facility] Stop: 11/04/16 20:01 Sodium Chloride (Sodium Chloride 0.9%) 1,000 mls @ 999 mls/hr IV .Q1H1M [facility] Stop: 10/29/16 06:53 Sodium Chloride (Sodium Chloride 0.9%) 1,000 mls @ 150 mls/hr IV .Q6H40M [facility] Insulin Human Lispro (Humalog Low) 0 units SC ACHS [facility] PRN Reason: Protocol Last Admin: 10/28/16 22:08 Dose: 2 units Lactobacillus Acidophilus (Bacid Acidophilus) 1 cap PO BID [facility] Levothyroxine Sodium (Synthroid) 88 mcg PO DAILY [facility] [place] Carbonate ([place] Carbonate 300mg) 300 mg PO BID [facility] Losartan Potassium (Cozaar) 50 mg PO DAILY [facility] Morphine Sulfate (Morphine) 1 mg IVP Q4H PRN PRN Reason: Pain, moderate (4-7) Phenazopyridine HCl (Pyridium) 200 mg PO TID [facility] Pramipexole Dihydrochloride (Mirapex) 1 mg PO TID [facility] Quetiapine Fumarate (Seroquel) 50 mg PO [facility] Last Admin: 10/28/16 22:13 Dose: 50 mg Ziprasidone (Geodon Cap) 80 mg PO BID [facility] Results - Vital Signs Recent Vital Signs: Last Vital Signs Temp 98.8 F 10/29/16 00:00 Pulse 108 H 10/29/16 04:00 Resp 35 H 10/29/16 04:00 BP 132/63 10/29/16 04:00 Pulse Ox 94 L 10/29/16 04:00 - Labs Result Diagrams: 10/29/16 05:40 10/28/16 13:40 Labs: Laboratory Results - last 24 hr 10/28/16 10/28/16 10/28/16 15:30 17:10 22:01 WBC RBC Hgb Hct MCV MCH MCHC RDW Plt Count MPV Gran % Lymph % (Auto) [place] % (Auto) Eos % (Auto) Baso % (Auto) Gran # Lymph # [place] # Eos # Baso # pO2 44 VBG pH 7.28 L VBG pCO2 47.0 VBG HCO3 22.1 VBG Total CO2 23.5 VBG O2 Sat (Calc) 82.0 H VBG Base Excess -4.8 L VBG Potassium 4.3 Sodium 143.0 Chloride 112.0 H Glucose 236 H Lactate 2.7 H FiO2 21.0 POC Glucose (mg/dL) 302 H Lactic Acid Total Creatine Kinase CK-MB (CK-2) CK-MB (CK-2) % Venous Blood Potassium 4.3 Urine Color Yellow Urine Appearance Turbid Urine pH 6.0 Ur Specific [place] 1.025 Urine Protein 100 H Urine Glucose (UA) 250 H Urine Ketones Negative Urine Blood Moderate H Urine Nitrate Negative Urine Bilirubin Negative Urine Urobilinogen 0.2 Ur Leukocyte Esterase Large H Urine RBC 2 - 5 Urine WBC 25 - 30 Urine Bacteria Many 10/28/16 10/29/16 10/29/16 22:27 02:00 05:40 WBC 16.8 H D RBC 3.75 Hgb 10.9 L D Hct 35.0 L MCV 93.3 MCH 29.1 MCHC 31.1 RDW 15.4 H Plt Count 201 MPV 10.5 Gran % 89.0 H Lymph % (Auto) 3.3 L Tyrrell % (Auto) 7.6 H Eos % (Auto) 0.0 L Baso % (Auto) 0.1 Gran # 14.93 H Lymph # 0.6 L [place] # 1.3 H Eos # 0.0 Baso # 0.01 pO2 VBG pH VBG pCO2 VBG HCO3 VBG Total CO2 VBG O2 Sat (Calc) VBG Base Excess VBG Potassium Sodium Chloride Glucose Lactate FiO2 POC Glucose (mg/dL) Lactic Acid 1.5 Total Creatine Kinase 1085 H CK-MB (CK-2) 2.7 CK-MB (CK-2) % Cancelled Venous Blood Potassium Urine Color Urine Appearance Urine pH Ur Specific [place] Urine Protein Urine Glucose (UA) Urine Ketones Urine Blood Urine Nitrate Urine Bilirubin Urine Urobilinogen Ur Leukocyte Esterase Urine RBC Urine WBC Urine Bacteria Attending/Attestation - Attestation I have personally seen and examined this patient.: Yes I have fully participated in the care of the patient.: Yes I have reviewed all pertinent clinical information: Yes Notes (Text): 10/29/16 06:43 -I agree with the above ICU consult note completed by the resident physician with the following additions and/or changes: The patient is a 65 year old woman with a history of nephrolithiasis, UTI, Parkinson's, HTN, NIDDM and chronic ETOH use, who was admitted for sepsis due to right-sided obstructive pyelonephritis for which she underwent cystoscopy with right pigtail placement yesterday evening. Post-operatively, the patient will be admitted to the ICU for close monitoring of her sepsis. She will be started on empiric IV Meropenem (with ID consult placed) and aggressive IVF's. Her home meds (aside from Metformin) will be resumed. For her NIDDM, low-dose Insulin sliding scale will be started in place of Metformin. A lactic acid and procalcitonin have been ordered. Also, it appears that the patient developed a mild rhabdomyolesis which is likely due to prolonged immobility (from recent surgical procedure) as well as recent mechanical fall. Will treat with aggressive IVF's and serial monitoring of CPK's.
--- NOTE | 2016-10-29 04:22 | CON ---
GI CONSULTATION DATE: 10/28/2016 CHIEF COMPLAINT: Sepsis from an obstructing distal right ureteral calculus. HISTORY OF PRESENT ILLNESS: A 65-year-old female who is diabetic. She has stable hypertension and hyperlipidemia. She fell and could not get up. She was brought by ambulance to the emergency room where she was found to be with a temperature of 101.2. She had some abdominal pain. A CAT scan was done, which showed a distal obstructing right ureteral calculus. Her white count was 22,000. PAST MEDICAL HISTORY: Significant for urinary tract infections. She has Parkinson's in addition to the hypertension. PAST SURGICAL HISTORY: She had a left breast lump removed, which was benign in 2013. FAMILY HISTORY: Noncontributory. SOCIAL HISTORY: Noncontributory. She does not smoke. Rarely uses alcohol. ALLERGIES: SHE HAS NO ALLERGIES. MEDICATIONS: At home, she is on Seroquel, Geodon, Synthroid, lithium, Mirapex, Micardis, Glucophage and Cardizem. REVIEW OF SYSTEMS: She has no symptoms referable to the head, eyes, ears, nose, and throat: She does have weakness. She has some right-sided abdominal pain and suprapubic pain. Otherwise, the review of symptoms was noncontributory including all 10 systems. PHYSICAL EXAMINATION: VITAL SIGNS: Shows her to currently have a temperature of 99.3, a pulse of 116, blood pressure 121/61, respirations 14. HEENT: Normocephalic. Sclerae clear. Conjunctivae non-injected. CHEST: She has right CVA pain. No rebound or guarding. LUNGS: Clear to percussion and auscultation. HEART: Normal sinus rhythm. EXTREMITIES: No peripheral edema. NEUROLOGIC: Well and oriented x3. LABORATORY DATA: Lab work shows a white count 21,900, creatinine is 1.5. Coags are normal. Her urine has 25 to 30 wbcs, many bacteria. She was given Zosyn and one dose of vanco. I reviewed the CAT scan films, spoke to the ER doctor as well as her family doctor and the daughter. I am going to assist her with placement of the right Pigtail stent. The patient understands the procedure well, so is in agreement. Meng Miranda MD
[2016-10-29] MEDS ORDERED: Sodium Chloride 0.9% 1,000 ML IV ONE (05:53)
[2016-10-29] MEDS: Sodium Chloride 0.9% 1,000 ML IV SCH ×2 (06:09→17:06)
[2016-10-29 06:18] LABS: BASO # 0.01 K/mm3 (0.0-2.0); BASO % 0.1 % (0.0-3.0); GRAN # 14.93 (1.4-6.5); LYMPH # 0.6 (1.2-3.4); LYMPH % 3.3 % (22.0-35.0); MEAN CELL VOLUME 93.3 fl (80.0-105.0); MEAN CORPUSCULAR HEMOGLOBIN 29.1 pg (25.0-35.0); MEAN CORPUSCULAR HGB CONC 31.1 g/dl (31.0-37.0); MEAN PLATELET VOLUME 10.5 fl (7.0-11.0); MONO # 1.3 (0.1-0.6); MONO % 7.6 % (1.0-6.0); RED CELL DISTRIBUTION WIDTH 15.4 % (11.5-14.5); WHITE BLOOD COUNT 16.8 10^3/ul (4.5-11.0)
[2016-10-29 06:48] LABS: ALKALINE PHOSPHATASE 114 U/L (38-126); ALT/SGPT 59 U/L (7-56); AST/SGOT 43 U/L (14-36); BILIRUBIN,TOTAL 0.5 mg/dL (0.2-1.3); BLOOD UREA NITROGEN 11 mg/dL (7-21); CALCIUM 8.5 mg/dL (8.4-10.5); CARBON DIOXIDE 21 mmol/L (21-33); CHLORIDE 114 mmol/L (98-107); CHOLESTEROL 128 mg/dL (130-200); GFR AFRICAN-AMERICAN > 60; GLUCOSE,RANDOM 244 mg/dL (70-110); MAGNESIUM 2.2 mg/dL (1.7-2.2); PHOSPHOROUS 2.6 mg/dL (2.5-4.5); POTASSIUM 3.6 mmol/L (3.6-5.0); SODIUM 145 mmol/L (132-148); TOTAL PROTEIN 6.5 g/dL (5.8-8.3)
[2016-10-29 07:56] LABS: FREE T4 1.22 ng/dL (0.78-2.19)
[2016-10-29 08:10] LABS: THYROID STIMULATING HORMONE 0.9 mIU/mL (0.46-4.68)
--- NOTE | 2016-10-29 08:21 | RAD ---
PROCEDURE: RIGHT RETROGRADE PYELOGRAM HISTORY: INSERT RT STENT COMPARISON: TECHNIQUE: FINDINGS: Intraoperative fluoroscopy was provided to the referring physician to assist in right retrograde pyelography the spot fluoroscopic images submitted demonstrating placement of a right double-j ureteral stent. Please see operative report for further detail. 39.6 seconds of fluoroscopy time utilized with accumulative radiographic dose of 15.05 mGy. IMPRESSION: Intraoperative fluoroscopy for retrograde pyelography was provided. Please see op report further detail.
[2016-10-29] MEDS: Insulin Lispro (humaLOG) LOW Coverage SC SCH ×4 (08:36→22:18)
--- NOTE | 2016-10-29 09:06 | CP.CCUPN ---
<Hanna Kelley - Last Filed: 10/29/16 11:12> CCU Subjective - Physician Review Events Since Last Encounter (Free Text): 10/29/16 09:03 s/p cystoscopy with R pigtail stent placement yesterday Subjective (Free Text): 10/29/16 09:03 Critical care progress note for Dr. Lui-Hanna Kelley, PGY-1 Pt S & E at bedside. Pt with improved R flank pain overnight- almost resolved. Continues with Left hip pain. Denies N/V/F/C, SOB, CP. Critical Care Time Spent (in minutes): 35 CCU Objective - Vital Signs / Intake & Output Intake and Output (Last 8hrs): Intake & Output 10/28/16 10/29/16 10/29/16 22:59 06:59 14:59 Intake Total 5150 Output Total 900 Balance 4250 Weight 81.647 kg Intake: IV 4150 Left Antecubital 4150 Oral 1000 Output: Urine 900 Urine, Voided 900 Other: Voiding Method Diaper # Bowel Movements 0 - Physical Exam Head: Positive for: Atraumatic, Normocephalic Pupils: Positive for: PERRL Extroacular Muscles: Positive for: EOMI Conjunctiva: Positive for: Normal Mouth: Positive for: Dry Nose (External): Positive for: Atraumatic. Negative for: Abrasion, Contusion, Laceration Neck: Positive for: Normal Range of Motion Respiratory/Chest: Positive for: Clear to Auscultation, Good Air Exchange. Negative for: Respiratory Distress, Accessory Muscle Use, Decreased Breath Sounds, Rales, Retracting, Rhonchi Cardiovascular: Positive for: Tachycardic. Negative for: Regular Rate and Rhythm, Murmurs Abdomen: Positive for: Normal Bowel Sounds. Negative for: Tenderness, Distention, Peritoneal Signs Back: Positive for: Normal Inspection Upper Extremity: Positive for: Normal Inspection. Negative for: Cyanosis, Edema , Swelling Lower Extremity: Positive for: Normal Inspection. Negative for: Edema Neurological: Positive for: GCS=15, CN II-XII Intact, Speech Normal Skin: Positive for: Warm, Dry, Normal Color. Negative for: Rashes Psychiatric: Positive for: Alert, Oriented x 3, Normal Insight, Normal Concentration - Medications Active Medications: Active Medications Generic Name Dose Route Start Last Admin Trade Name Freq PRN Reason Stop Dose Admin Acetaminophen 650 mg 08/31/17 20:03 Tylenol 325mg Tab PO Q6H PRN Fever >100.4 F Diltiazem HCl 240 mg 10/29/16 10:00 Cardizem Cd PO DAILY [facility] Famotidine 20 mg 10/28/16 22:00 10/28/16 22:13 Pepcid PO 20 mg 1000,2200 ROSEMARY Administration Sodium Chloride 1,000 mls @ 150 mls/hr 10/29/16 05:57 Sodium Chloride 0.9% IV .Q6H40M [facility] Ceftriaxone Sodium 1 gm in 100 mls @ 100 mls/hr 10/29/16 10:00 Rocephin 1 Gram Ivpb IVPB 11/07/16 10:01 DAILY [facility] Protocol Insulin Human Lispro 0 units 10/28/16 22:00 10/29/16 08:36 Humalog Low SC Not Given ACHS [facility] Protocol Lactobacillus Acidophilus 1 cap 10/29/16 10:00 Bacid Acidophilus PO BID [facility] Levothyroxine Sodium 88 mcg 10/29/16 10:00 Synthroid PO DAILY [facility] [employer] Carbonate 300 mg 10/29/16 10:00 [employer] Carbonate 300mg PO BID [facility] Losartan Potassium 50 mg 10/29/16 10:00 Cozaar PO DAILY [facility] Morphine Sulfate 1 mg 10/28/16 20:11 Morphine IVP Q4H PRN Pain, moderate (4-7) Phenazopyridine HCl 200 mg 10/29/16 10:00 Pyridium PO TID [facility] Pramipexole Dihydrochloride 1 mg 10/29/16 10:00 Mirapex PO TID [facility] Quetiapine Fumarate 50 mg 10/28/16 22:00 10/28/16 22:13 Seroquel PO 50 mg HS [facility] Administration Ziprasidone 80 mg 10/29/16 10:00 Geodon Cap PO BID [facility] - Patient Studies Lab Studies: Lab Studies 10/29/16 10/29/16 10/29/16 Range/Units 07:20 05:40 05:40 WBC (4.5-11.0) 10^3/ul RBC (3.5-6.1) 10^6/uL Hgb (12.0-16.0) g/dL Hct (36.0-48.0) % MCV (80.0-105.0) fl MCH (25.0-35.0) pg MCHC (31.0-37.0) g/dl RDW (11.5-14.5) % Plt Count (120.0-450.0) 10^3/uL MPV (7.0-11.0) fl Gran % (50.0-68.0) % Lymph % (Auto) (22.0-35.0) % [place] % (Auto) (1.0-6.0) % Eos % (Auto) (1.5-5.0) % Baso % (Auto) (0.0-3.0) % Gran # (1.4-6.5) Lymph # (1.2-3.4) [place] # (0.1-0.6) Eos # (0.0-0.7) Baso # (0.0-2.0) K/mm3 pO2 (30-55) mm/Hg VBG pH (7.32-7.43) VBG pCO2 (40-60) VBG HCO3 (21-28) mmol/l VBG Total CO2 (22-28) mmol.L VBG O2 Sat (Calc) (40-65) % VBG Base Excess (0.0-2.0) mmol/L VBG Potassium (3.6-5.2) mmol/L Sodium (132-148) mmol/L Chloride (98-107) mmol/L Glucose (65-105) mg/dl Lactate (0.7-2.1) mmol/L FiO2 % Potassium (3.6-5.0) mmol/L Carbon Dioxide (21-33) mmol/L Anion Gap (10-20) BUN (7-21) mg/dL Creatinine (0.5-1.4) mg/dL Est GFR ( Amer) Est GFR (Non-Af Amer) POC Glucose (mg/dL) (65-110) mg/dL Random Glucose (70-110) mg/dL Lactic Acid (0.7-2.1) mmol/L Calcium (8.4-10.5) mg/dL Phosphorus (2.5-4.5) mg/dL Magnesium (1.7-2.2) mg/dL Total Bilirubin (0.2-1.3) mg/dL AST (14-36) U/L ALT (7-56) U/L Alkaline Phosphatase (38-126) U/L Total Creatine Kinase 903 H (35-230) U/L CK-MB (CK-2) 1.9 (0.0-3.6) ng/mL CK-MB (CK-2) % Cancelled Total Protein (5.8-8.3) g/dL Albumin (3.0-4.8) g/dL Globulin gm/dL Albumin/Globulin Ratio (1.1-1.8) Triglycerides (35-160) mg/dL Cholesterol (130-200) mg/dL LDL Cholesterol Direct (0-129) mg/dL HDL Cholesterol (29-60) mg/dL Free T4 1.22 (0.78-2.19) ng/dL TSH 3rd Generation 0.90 (0.46-4.68) mIU/mL Venous Blood Potassium (3.6-5.2) mmol/L Urine Color (YELLOW) Urine Appearance (CLEAR) Urine pH (4.7-8.0) Ur Specific [place] (1.005-1.035) Urine Protein (<30 mg/dL) mg/dL Urine Glucose (UA) (NEGATIVE) mg/dL Urine Ketones (NEGATIVE) mg/dL Urine Blood (NEGATIVE) Urine Nitrate (NEGATIVE) Urine Bilirubin (NEGATIVE) Urine Urobilinogen (<1 E.U./dL) E.U./dL Ur Leukocyte Esterase (NEGATIVE) Jasen/uL Urine RBC (0-2) /hpf Urine WBC (0-6) /hpf Urine Bacteria (NEG) [employer] 0.6 (0.5-1.3) mmol/L 10/29/16 10/29/16 10/29/16 Range/Units 05:40 05:40 02:00 WBC 16.8 H D (4.5-11.0) 10^3/ul RBC 3.75 (3.5-6.1) 10^6/uL Hgb 10.9 L D (12.0-16.0) g/dL Hct 35.0 L (36.0-48.0) % MCV 93.3 (80.0-105.0) fl MCH 29.1 (25.0-35.0) pg MCHC 31.1 (31.0-37.0) g/dl RDW 15.4 H (11.5-14.5) % Plt Count 201 (120.0-450.0) 10^3/uL MPV 10.5 (7.0-11.0) fl Gran % 89.0 H (50.0-68.0) % Lymph % (Auto) 3.3 L (22.0-35.0) % [place] % (Auto) 7.6 H (1.0-6.0) % Eos % (Auto) 0.0 L (1.5-5.0) % Baso % (Auto) 0.1 (0.0-3.0) % Gran # 14.93 H (1.4-6.5) Lymph # 0.6 L (1.2-3.4) [place] # 1.3 H (0.1-0.6) Eos # 0.0 (0.0-0.7) Baso # 0.01 (0.0-2.0) K/mm3 pO2 (30-55) mm/Hg VBG pH (7.32-7.43) VBG pCO2 (40-60) VBG HCO3 (21-28) mmol/l VBG Total CO2 (22-28) mmol.L VBG O2 Sat (Calc) (40-65) % VBG Base Excess (0.0-2.0) mmol/L VBG Potassium (3.6-5.2) mmol/L Sodium 145 (132-148) mmol/L Chloride 114 H (98-107) mmol/L Glucose (65-105) mg/dl Lactate (0.7-2.1) mmol/L FiO2 % Potassium 3.6 (3.6-5.0) mmol/L Carbon Dioxide 21 (21-33) mmol/L Anion Gap 14 (10-20) BUN 11 (7-21) mg/dL Creatinine 1.0 (0.5-1.4) mg/dL Est GFR ( Amer) > 60 Est GFR (Non-Af Amer) 55 POC Glucose (mg/dL) (65-110) mg/dL Random Glucose 244 H (70-110) mg/dL Lactic Acid (0.7-2.1) mmol/L Calcium 8.5 (8.4-10.5) mg/dL Phosphorus 2.6 (2.5-4.5) mg/dL Magnesium 2.2 (1.7-2.2) mg/dL Total Bilirubin 0.5 (0.2-1.3) mg/dL AST 43 H (14-36) U/L ALT 59 H (7-56) U/L Alkaline Phosphatase 114 (38-126) U/L Total Creatine Kinase 1085 H (35-230) U/L CK-MB (CK-2) 2.7 (0.0-3.6) ng/mL CK-MB (CK-2) % Cancelled Total Protein 6.5 (5.8-8.3) g/dL Albumin 3.3 (3.0-4.8) g/dL Globulin 3.2 gm/dL Albumin/Globulin Ratio 1.0 L (1.1-1.8) Triglycerides 149 (35-160) mg/dL Cholesterol 128 L (130-200) mg/dL LDL Cholesterol Direct 69 (0-129) mg/dL HDL Cholesterol 31 (29-60) mg/dL Free T4 (0.78-2.19) ng/dL TSH 3rd Generation (0.46-4.68) mIU/mL Venous Blood Potassium (3.6-5.2) mmol/L Urine Color (YELLOW) Urine Appearance (CLEAR) Urine pH (4.7-8.0) Ur Specific [place] (1.005-1.035) Urine Protein (<30 mg/dL) mg/dL Urine Glucose (UA) (NEGATIVE) mg/dL Urine Ketones (NEGATIVE) mg/dL Urine Blood (NEGATIVE) Urine Nitrate (NEGATIVE) Urine Bilirubin (NEGATIVE) Urine Urobilinogen (<1 E.U./dL) E.U./dL Ur Leukocyte Esterase (NEGATIVE) Jasen/uL Urine RBC (0-2) /hpf Urine WBC (0-6) /hpf Urine Bacteria (NEG) [employer] (0.5-1.3) mmol/L 10/28/16 10/28/16 10/28/16 Range/Units 22:27 22:01 17:10 WBC (4.5-11.0) 10^3/ul RBC (3.5-6.1) 10^6/uL Hgb (12.0-16.0) g/dL Hct (36.0-48.0) % MCV (80.0-105.0) fl MCH (25.0-35.0) pg MCHC (31.0-37.0) g/dl RDW (11.5-14.5) % Plt Count (120.0-450.0) 10^3/uL MPV (7.0-11.0) fl Gran % (50.0-68.0) % Lymph % (Auto) (22.0-35.0) % [place] % (Auto) (1.0-6.0) % Eos % (Auto) (1.5-5.0) % Baso % (Auto) (0.0-3.0) % Gran # (1.4-6.5) Lymph # (1.2-3.4) [place] # (0.1-0.6) Eos # (0.0-0.7) Baso # (0.0-2.0) K/mm3 pO2 44 (30-55) mm/Hg VBG pH 7.28 L (7.32-7.43) VBG pCO2 47.0 (40-60) VBG HCO3 22.1 (21-28) mmol/l VBG Total CO2 23.5 (22-28) mmol.L VBG O2 Sat (Calc) 82.0 H (40-65) % VBG Base Excess -4.8 L (0.0-2.0) mmol/L VBG Potassium 4.3 (3.6-5.2) mmol/L Sodium 143.0 (132-148) mmol/L Chloride 112.0 H (98-107) mmol/L Glucose 236 H (65-105) mg/dl Lactate 2.7 H (0.7-2.1) mmol/L FiO2 21.0 % Potassium (3.6-5.0) mmol/L Carbon Dioxide (21-33) mmol/L Anion Gap (10-20) BUN (7-21) mg/dL Creatinine (0.5-1.4) mg/dL Est GFR ( Amer) Est GFR (Non-Af Amer) POC Glucose (mg/dL) 302 H (65-110) mg/dL Random Glucose (70-110) mg/dL Lactic Acid 1.5 (0.7-2.1) mmol/L Calcium (8.4-10.5) mg/dL Phosphorus (2.5-4.5) mg/dL Magnesium (1.7-2.2) mg/dL Total Bilirubin (0.2-1.3) mg/dL AST (14-36) U/L ALT (7-56) U/L Alkaline Phosphatase (38-126) U/L Total Creatine Kinase (35-230) U/L CK-MB (CK-2) (0.0-3.6) ng/mL CK-MB (CK-2) % Total Protein (5.8-8.3) g/dL Albumin (3.0-4.8) g/dL Globulin gm/dL Albumin/Globulin Ratio (1.1-1.8) Triglycerides (35-160) mg/dL Cholesterol (130-200) mg/dL LDL Cholesterol Direct (0-129) mg/dL HDL Cholesterol (29-60) mg/dL Free T4 (0.78-2.19) ng/dL TSH 3rd Generation (0.46-4.68) mIU/mL Venous Blood Potassium 4.3 (3.6-5.2) mmol/L Urine Color (YELLOW) Urine Appearance (CLEAR) Urine pH (4.7-8.0) Ur Specific [place] (1.005-1.035) Urine Protein (<30 mg/dL) mg/dL Urine Glucose (UA) (NEGATIVE) mg/dL Urine Ketones (NEGATIVE) mg/dL Urine Blood (NEGATIVE) Urine Nitrate (NEGATIVE) Urine Bilirubin (NEGATIVE) Urine Urobilinogen (<1 E.U./dL) E.U./dL Ur Leukocyte Esterase (NEGATIVE) Jasen/uL Urine RBC (0-2) /hpf Urine WBC (0-6) /hpf Urine Bacteria (NEG) [employer] (0.5-1.3) mmol/L 10/28/16 Range/Units 15:30 WBC (4.5-11.0) 10^3/ul RBC (3.5-6.1) 10^6/uL Hgb (12.0-16.0) g/dL Hct (36.0-48.0) % MCV (80.0-105.0) fl MCH (25.0-35.0) pg MCHC (31.0-37.0) g/dl RDW (11.5-14.5) % Plt Count (120.0-450.0) 10^3/uL MPV (7.0-11.0) fl Gran % (50.0-68.0) % Lymph % (Auto) (22.0-35.0) % [place] % (Auto) (1.0-6.0) % Eos % (Auto) (1.5-5.0) % Baso % (Auto) (0.0-3.0) % Gran # (1.4-6.5) Lymph # (1.2-3.4) [place] # (0.1-0.6) Eos # (0.0-0.7) Baso # (0.0-2.0) K/mm3 pO2 (30-55) mm/Hg VBG pH (7.32-7.43) VBG pCO2 (40-60) VBG HCO3 (21-28) mmol/l VBG Total CO2 (22-28) mmol.L VBG O2 Sat (Calc) (40-65) % VBG Base Excess (0.0-2.0) mmol/L VBG Potassium (3.6-5.2) mmol/L Sodium (132-148) mmol/L Chloride (98-107) mmol/L Glucose (65-105) mg/dl Lactate (0.7-2.1) mmol/L FiO2 % Potassium (3.6-5.0) mmol/L Carbon Dioxide (21-33) mmol/L Anion Gap (10-20) BUN (7-21) mg/dL Creatinine (0.5-1.4) mg/dL Est GFR ( Amer) Est GFR (Non-Af Amer) POC Glucose (mg/dL) (65-110) mg/dL Random Glucose (70-110) mg/dL Lactic Acid (0.7-2.1) mmol/L Calcium (8.4-10.5) mg/dL Phosphorus (2.5-4.5) mg/dL Magnesium (1.7-2.2) mg/dL Total Bilirubin (0.2-1.3) mg/dL AST (14-36) U/L ALT (7-56) U/L Alkaline Phosphatase (38-126) U/L Total Creatine Kinase (35-230) U/L CK-MB (CK-2) (0.0-3.6) ng/mL CK-MB (CK-2) % Total Protein (5.8-8.3) g/dL Albumin (3.0-4.8) g/dL Globulin gm/dL Albumin/Globulin Ratio (1.1-1.8) Triglycerides (35-160) mg/dL Cholesterol (130-200) mg/dL LDL Cholesterol Direct (0-129) mg/dL HDL Cholesterol (29-60) mg/dL Free T4 (0.78-2.19) ng/dL TSH 3rd Generation (0.46-4.68) mIU/mL Venous Blood Potassium (3.6-5.2) mmol/L Urine Color Yellow (YELLOW) Urine Appearance Turbid (CLEAR) Urine pH 6.0 (4.7-8.0) Ur Specific [place] 1.025 (1.005-1.035) Urine Protein 100 H (<30 mg/dL) mg/dL Urine Glucose (UA) 250 H (NEGATIVE) mg/dL Urine Ketones Negative (NEGATIVE) mg/dL Urine Blood Moderate H (NEGATIVE) Urine Nitrate Negative (NEGATIVE) Urine Bilirubin Negative (NEGATIVE) Urine Urobilinogen 0.2 (<1 E.U./dL) E.U./dL Ur Leukocyte Esterase Large H (NEGATIVE) Jasen/uL Urine RBC 2 - 5 (0-2) /hpf Urine WBC 25 - 30 (0-6) /hpf Urine Bacteria Many (NEG) [employer] (0.5-1.3) mmol/L Laboratory Results - last 24 hr 10/28/16 10/28/16 10/28/16 15:30 17:10 22:01 WBC RBC Hgb Hct MCV MCH MCHC RDW Plt Count MPV Gran % Lymph % (Auto) [place] % (Auto) Eos % (Auto) Baso % (Auto) Gran # Lymph # [place] # Eos # Baso # pO2 44 VBG pH 7.28 L VBG pCO2 47.0 VBG HCO3 22.1 VBG Total CO2 23.5 VBG O2 Sat (Calc) 82.0 H VBG Base Excess -4.8 L VBG Potassium 4.3 Sodium 143.0 Chloride 112.0 H Glucose 236 H Lactate 2.7 H FiO2 21.0 Potassium Carbon Dioxide Anion Gap BUN Creatinine Est GFR ( Amer) Est GFR (Non-Af Amer) POC Glucose (mg/dL) 302 H Random Glucose Lactic Acid Calcium Phosphorus Magnesium Total Bilirubin AST ALT Alkaline Phosphatase Total Creatine Kinase CK-MB (CK-2) CK-MB (CK-2) % Total Protein Albumin Globulin Albumin/Globulin Ratio Triglycerides Cholesterol LDL Cholesterol Direct HDL Cholesterol Free T4 TSH 3rd Generation Venous Blood Potassium 4.3 Urine Color Yellow Urine Appearance Turbid Urine pH 6.0 Ur Specific [place] 1.025 Urine Protein 100 H Urine Glucose (UA) 250 H Urine Ketones Negative Urine Blood Moderate H Urine Nitrate Negative Urine Bilirubin Negative Urine Urobilinogen 0.2 Ur Leukocyte Esterase Large H Urine RBC 2 - 5 Urine WBC 25 - 30 Urine Bacteria Many [employer] 10/28/16 10/29/16 10/29/16 22:27 02:00 05:40 WBC 16.8 H D RBC 3.75 Hgb 10.9 L D Hct 35.0 L MCV 93.3 MCH 29.1 MCHC 31.1 RDW 15.4 H Plt Count 201 MPV 10.5 Gran % 89.0 H Lymph % (Auto) 3.3 L [place] % (Auto) 7.6 H Eos % (Auto) 0.0 L Baso % (Auto) 0.1 Gran # 14.93 H Lymph # 0.6 L [place] # 1.3 H Eos # 0.0 Baso # 0.01 pO2 VBG pH VBG pCO2 VBG HCO3 VBG Total CO2 VBG O2 Sat (Calc) VBG Base Excess VBG Potassium Sodium Chloride Glucose Lactate FiO2 Potassium Carbon Dioxide Anion Gap BUN Creatinine Est GFR ( Amer) Est GFR (Non-Af Amer) POC Glucose (mg/dL) Random Glucose Lactic Acid 1.5 Calcium Phosphorus Magnesium Total Bilirubin AST ALT Alkaline Phosphatase Total Creatine Kinase 1085 H CK-MB (CK-2) 2.7 CK-MB (CK-2) % Cancelled Total Protein Albumin Globulin Albumin/Globulin Ratio Triglycerides Cholesterol LDL Cholesterol Direct HDL Cholesterol Free T4 TSH 3rd Generation Venous Blood Potassium Urine Color Urine Appearance Urine pH Ur Specific [place] Urine Protein Urine Glucose (UA) Urine Ketones Urine Blood Urine Nitrate Urine Bilirubin Urine Urobilinogen Ur Leukocyte Esterase Urine RBC Urine WBC Urine Bacteria [employer] 10/29/16 10/29/16 10/29/16 05:40 05:40 05:40 WBC RBC Hgb Hct MCV MCH MCHC RDW Plt Count MPV Gran % Lymph % (Auto) [place] % (Auto) Eos % (Auto) Baso % (Auto) Gran # Lymph # [place] # Eos # Baso # pO2 VBG pH VBG pCO2 VBG HCO3 VBG Total CO2 VBG O2 Sat (Calc) VBG Base Excess VBG Potassium Sodium 145 Chloride 114 H Glucose Lactate FiO2 Potassium 3.6 Carbon Dioxide 21 Anion Gap 14 BUN 11 Creatinine 1.0 Est GFR ( Amer) > 60 Est GFR (Non-Af Amer) 55 POC Glucose (mg/dL) Random Glucose 244 H Lactic Acid Calcium 8.5 Phosphorus 2.6 Magnesium 2.2 Total Bilirubin 0.5 AST 43 H ALT 59 H Alkaline Phosphatase 114 Total Creatine Kinase CK-MB (CK-2) CK-MB (CK-2) % Total Protein 6.5 Albumin 3.3 Globulin 3.2 Albumin/Globulin Ratio 1.0 L Triglycerides 149 Cholesterol 128 L LDL Cholesterol Direct 69 HDL Cholesterol 31 Free T4 1.22 TSH 3rd Generation 0.90 Venous Blood Potassium Urine Color Urine Appearance Urine pH Ur Specific [place] Urine Protein Urine Glucose (UA) Urine Ketones Urine Blood Urine Nitrate Urine Bilirubin Urine Urobilinogen Ur Leukocyte Esterase Urine RBC Urine WBC Urine Bacteria [employer] 0.6 10/29/16 07:20 WBC RBC Hgb Hct MCV MCH MCHC RDW Plt Count MPV Gran % Lymph % (Auto) [place] % (Auto) Eos % (Auto) Baso % (Auto) Gran # Lymph # [place] # Eos # Baso # pO2 VBG pH VBG pCO2 VBG HCO3 VBG Total CO2 VBG O2 Sat (Calc) VBG Base Excess VBG Potassium Sodium Chloride Glucose Lactate FiO2 Potassium Carbon Dioxide Anion Gap BUN Creatinine Est GFR ( Amer) Est GFR (Non-Af Amer) POC Glucose (mg/dL) Random Glucose Lactic Acid Calcium Phosphorus Magnesium Total Bilirubin AST ALT Alkaline Phosphatase Total Creatine Kinase 903 H CK-MB (CK-2) 1.9 CK-MB (CK-2) % Cancelled Total Protein Albumin Globulin Albumin/Globulin Ratio Triglycerides Cholesterol LDL Cholesterol Direct HDL Cholesterol Free T4 TSH 3rd Generation Venous Blood Potassium Urine Color Urine Appearance Urine pH Ur Specific [place] Urine Protein Urine Glucose (UA) Urine Ketones Urine Blood Urine Nitrate Urine Bilirubin Urine Urobilinogen Ur Leukocyte Esterase Urine RBC Urine WBC Urine Bacteria [employer] Fingerstick Blood Sugar Results: 219 Review of Systems - Review of Systems All systems: reviewed and no additional remarkable complaints except - Constitutional Constitutional: absent: Fever, Chills - EENT Nose/Mouth/Throat: Dry Mouth - Cardiovascular Cardiovascular: absent: Chest Pain - Gastrointestinal Gastrointestinal: absent: Abdominal Pain, Nausea, Vomiting - Genitourinary Genitourinary: absent: Dysuria, Flank Pain, Hematuria, Pyuria, Urinary Incontinence, Urinary Frequency Additional comments: since insertion of R pigtail stent yesterday - Musculoskeletal Musculoskeletal: absent: Numbness, Tingling - Neurological Neurological: Weakness - Endocrine Endocrine: Polydipsia Critical Care Progress Note - Extremities/Vascular Does the Patient have a Central Venous Catheter?: No Does the Patient need a Central Venous Catheter?: No Does the Patient have a Dinero Catheter?: No Does the Patient need a Dinero Catheter?: No - Prophylaxis GI Prophylaxis GI: Pepsid - Prophylaxis DVT Prophylaxis DVT: SCDs - Nutrition Nutrition: Nutrition Category Date Time Status Heart Healthy Diet [DIET] Diets 10/28/16 Dinner Ordered Assessment/Plan - Assessment and Plan (Free Text) Assessment: 65F w/PMH sig for nephrolithiasis, UTI, Parkinson's, HTN, and DM admitted to ICU with sepsis 2/2 UTI s/p R pigtail stent placement, mild rhabdomyloysis and possible L hip fxr- R flank pain markedly improved, stable, ready for transfer to remote tele Plan: Neuro AOx 3 Verbal No neurological deficits Ct brain- No intracranial mass, hemorrhage or evidence of acute infarct. Age related involutional changes. CVS hx HTN, HLD BP WNL Tachycardic Cardizem Cozaar FU Carotid U/S FU Echo Pulm Tachypneic Target Osmel >88% O2 PRN GI HHD Lactobacillus Transaminitis AST 43 from 41 ALT 59 from 61 Ab U/S-Hepatomeglay w/diffuse infiltration, prior cholecystectomy, mild R hydronephrosis CT ab/pelvis-Obstructing 6 mm right distal ureteral stone with moderate hydronephrosis and perinephric stranding. B/L nephrolithiasis. Severe fatty infiltration of the liver and hepatomegaly Nephro UTI, nephrolithiasis Ab x-ray- 10mm stone in lower pole of R kidney, 7 mm stone in upper pole of L kidney, 5 mm stone alongside the ureteral stent just below sacrum Rhabdo-mild CK 903 from 1085 s/p R pigtail catheter insertion R flank pain much improved EDE -resolving Cr 1.0 from 1.5 Lytes WNL BUN/Cr WNL Tylenol PRN Fever Rocephin Morphine 1mg Q4H PRN pain NS@150 Pyridium Uro following ID Leukocytosis 16.8 from 21.9 Febrile over last 24H- Tmax 102.4 Merrem Lactic acid 1.5 FU Blood cx FU Urine cx FU Procalc ID following Endo hx DM, hypothyroidism Synthroid FT4 1.22 TSH 0.9 Mirapex Hyperglycemia BS 244 Target euglycemia per NICE sugar trial ISS Accuchecks FU A1c Diabetic diet MSK s/p fall w/mild rhabdo Pelvis X-ray- Subcapital lucency of left hip. Cannot rule out nondisplaced subcapital fracture. Bilateral osteoarthritis of the hip. PT/OT Fall precautions Heme onc HepSQ Coags WNL Psych Hx Bipolar d/o [employer] Seroquel Geodon Monitor for agitation GI/DVT ppx Pepcid SCD Hep SQ Dispo Stable Transfer to remote tele PT/OT Case mgmt referral DW attending Allie, PGY-1 - Date & Time Date: 10/29/16 Time: 07:20 <Diaz Tapia - Last Filed: 10/29/16 12:14> CCU Objective - Vital Signs / Intake & Output Vital Signs (Last 4 hours): Vital Signs Pulse BP 10/29/16 10:10 99 H 124/60 10/29/16 10:04 93 H 124/60 Intake and Output (Last 8hrs): Intake & Output 10/28/16 10/29/16 10/29/16 22:59 06:59 14:59 Intake Total 5150 Output Total 900 Balance 4250 Weight 180 lb Intake: IV 4150 Left Antecubital 4150 Oral 1000 Output: Urine 900 Urine, Voided 900 Other: Voiding Method Diaper # Bowel Movements 0 - Medications Active Medications: Active Medications Generic Name Dose Route Start Last Admin Trade Name Freq PRN Reason Stop Dose Admin Acetaminophen 650 mg 10/28/16 20:03 10/29/16 10:05 Tylenol 325mg Tab PO 650 mg Q6H PRN Administration Fever >100.4 F Diltiazem HCl 240 mg 10/29/16 10:00 10/29/16 10:10 Cardizem Cd PO 240 mg DAILY ROSEMARY Administration Famotidine 20 mg 10/28/16 22:00 10/29/16 10:04 Pepcid PO 20 mg 1000,2200 ROSEMARY Administration Heparin Sodium (Porcine) 5,000 units 10/29/16 10:00 10/29/16 10:06 Heparin SC 5,000 units Q12 ROSEMARY Administration Protocol Sodium Chloride 1,000 mls @ 150 mls/hr 10/29/16 05:57 Sodium Chloride 0.9% IV .[id number] ROSEMARY Ceftriaxone Sodium 1 gm in 100 mls @ 100 mls/hr 10/29/16 10:00 10/29/16 10:06 Rocephin 1 Gram Ivpb IVPB 11/07/16 10:01 100 mls/hr DAILY ROSEMARY Administration Protocol Insulin Human Lispro 0 units 10/28/16 22:00 10/29/16 11:53 Humalog Low SC 4 units ACHS ROSEMARY Administration Protocol Lactobacillus Acidophilus 1 cap 10/29/16 10:00 10/29/16 10:04 Bacid Acidophilus PO 1 cap BID ROSEMARY Administration Levothyroxine Sodium 88 mcg 10/29/16 10:00 10/29/16 10:35 Synthroid PO 88 mcg DAILY ROSEMARY Administration [employer] Carbonate 300 mg 10/29/16 10:00 10/29/16 10:36 [employer] Carbonate 300mg PO 300 mg BID ROSEMARY Administration Losartan Potassium 50 mg 10/29/16 10:00 10/29/16 10:04 Cozaar PO 50 mg DAILY ROSEMARY Administration Morphine Sulfate 1 mg 10/28/16 20:11 Morphine IVP Q4H PRN Pain, moderate (4-7) Phenazopyridine HCl 200 mg 10/29/16 10:00 10/29/16 10:04 Pyridium PO 200 mg TID ROSEMARY Administration Pramipexole Dihydrochloride 1 mg 10/29/16 10:00 10/29/16 10:35 Mirapex PO 1 mg TID ROSEMARY Administration Quetiapine Fumarate 50 mg 10/28/16 22:00 10/28/16 22:13 Seroquel PO 50 mg HS ROSEMARY Administration Ziprasidone 80 mg 10/29/16 10:00 10/29/16 10:36 Geodon Cap PO 80 mg BID ROSEMARY Administration - Patient Studies Lab Studies: Microbiology Studies 10/28/16 15:30 Urine Culture - Preliminary Urine Gram Negative Javi Lab Studies 09/0110/29/16 10/29/16 Range/Units 07:20 05:40 05:40 WBC (4.5-11.0) 10^3/ul RBC (3.5-6.1) 10^6/uL Hgb (12.0-16.0) g/dL Hct (36.0-48.0) % MCV (80.0-105.0) fl MCH (25.0-35.0) pg MCHC (31.0-37.0) g/dl RDW (11.5-14.5) % Plt Count (120.0-450.0) 10^3/uL MPV (7.0-11.0) fl Gran % (50.0-68.0) % Lymph % (Auto) (22.0-35.0) % [place] % (Auto) (1.0-6.0) % Eos % (Auto) (1.5-5.0) % Baso % (Auto) (0.0-3.0) % Gran # (1.4-6.5) Lymph # (1.2-3.4) [place] # (0.1-0.6) Eos # (0.0-0.7) Baso # (0.0-2.0) K/mm3 pO2 (30-55) mm/Hg VBG pH (7.32-7.43) VBG pCO2 (40-60) VBG HCO3 (21-28) mmol/l VBG Total CO2 (22-28) mmol.L VBG O2 Sat (Calc) (40-65) % VBG Base Excess (0.0-2.0) mmol/L VBG Potassium (3.6-5.2) mmol/L Sodium (132-148) mmol/L Chloride (98-107) mmol/L Glucose (65-105) mg/dl Lactate (0.7-2.1) mmol/L FiO2 % Potassium (3.6-5.0) mmol/L Carbon Dioxide (21-33) mmol/L Anion Gap (10-20) BUN (7-21) mg/dL Creatinine (0.5-1.4) mg/dL Est GFR ( Amer) Est GFR (Non-Af Amer) POC Glucose (mg/dL) (65-110) mg/dL Random Glucose (70-110) mg/dL Hemoglobin A1c (4.2-6.5) % Lactic Acid (0.7-2.1) mmol/L Calcium (8.4-10.5) mg/dL Phosphorus (2.5-4.5) mg/dL Magnesium (1.7-2.2) mg/dL Total Bilirubin (0.2-1.3) mg/dL AST (14-36) U/L ALT (7-56) U/L Alkaline Phosphatase (38-126) U/L Total Creatine Kinase 903 H (35-230) U/L CK-MB (CK-2) 1.9 (0.0-3.6) ng/mL CK-MB (CK-2) % Cancelled Total Protein (5.8-8.3) g/dL Albumin (3.0-4.8) g/dL Globulin gm/dL Albumin/Globulin Ratio (1.1-1.8) Triglycerides (35-160) mg/dL Cholesterol (130-200) mg/dL LDL Cholesterol Direct (0-129) mg/dL HDL Cholesterol (29-60) mg/dL Free T4 1.22 (0.78-2.19) ng/dL TSH 3rd Generation 0.90 (0.46-4.68) mIU/mL Venous Blood Potassium (3.6-5.2) mmol/L Urine Color (YELLOW) Urine Appearance (CLEAR) Urine pH (4.7-8.0) Ur Specific [place] (1.005-1.035) Urine Protein (<30 mg/dL) mg/dL Urine Glucose (UA) (NEGATIVE) mg/dL Urine Ketones (NEGATIVE) mg/dL Urine Blood (NEGATIVE) Urine Nitrate (NEGATIVE) Urine Bilirubin (NEGATIVE) Urine Urobilinogen (<1 E.U./dL) E.U./dL Ur Leukocyte Esterase (NEGATIVE) Jasen/uL Urine RBC (0-2) /hpf Urine WBC (0-6) /hpf Urine Bacteria (NEG) [employer] 0.6 (0.5-1.3) mmol/L 10/29/16 10/29/16 10/29/16 Range/Units 05:40 05:40 05:40 WBC 16.8 H D (4.5-11.0) 10^3/ul RBC 3.75 (3.5-6.1) 10^6/uL Hgb 10.9 L D (12.0-16.0) g/dL Hct 35.0 L (36.0-48.0) % MCV 93.3 (80.0-105.0) fl MCH 29.1 (25.0-35.0) pg MCHC 31.1 (31.0-37.0) g/dl RDW 15.4 H (11.5-14.5) % Plt Count 201 (120.0-450.0) 10^3/uL MPV 10.5 (7.0-11.0) fl Gran % 89.0 H (50.0-68.0) % Lymph % (Auto) 3.3 L (22.0-35.0) % [place] % (Auto) 7.6 H (1.0-6.0) % Eos % (Auto) 0.0 L (1.5-5.0) % Baso % (Auto) 0.1 (0.0-3.0) % Gran # 14.93 H (1.4-6.5) Lymph # 0.6 L (1.2-3.4) [place] # 1.3 H (0.1-0.6) Eos # 0.0 (0.0-0.7) Baso # 0.01 (0.0-2.0) K/mm3 pO2 (30-55) mm/Hg VBG pH (7.32-7.43) VBG pCO2 (40-60) VBG HCO3 (21-28) mmol/l VBG Total CO2 (22-28) mmol.L VBG O2 Sat (Calc) (40-65) % VBG Base Excess (0.0-2.0) mmol/L VBG Potassium (3.6-5.2) mmol/L Sodium 145 (132-148) mmol/L Chloride 114 H (98-107) mmol/L Glucose (65-105) mg/dl Lactate (0.7-2.1) mmol/L FiO2 % Potassium 3.6 (3.6-5.0) mmol/L Carbon Dioxide 21 (21-33) mmol/L Anion Gap 14 (10-20) BUN 11 (7-21) mg/dL Creatinine 1.0 (0.5-1.4) mg/dL Est GFR ( Amer) > 60 Est GFR (Non-Af Amer) 55 POC Glucose (mg/dL) (65-110) mg/dL Random Glucose 244 H (70-110) mg/dL Hemoglobin A1c 8.4 H (4.2-6.5) % Lactic Acid (0.7-2.1) mmol/L Calcium 8.5 (8.4-10.5) mg/dL Phosphorus 2.6 (2.5-4.5) mg/dL Magnesium 2.2 (1.7-2.2) mg/dL Total Bilirubin 0.5 (0.2-1.3) mg/dL AST 43 H (14-36) U/L ALT 59 H (7-56) U/L Alkaline Phosphatase 114 (38-126) U/L Total Creatine Kinase (35-230) U/L CK-MB (CK-2) (0.0-3.6) ng/mL CK-MB (CK-2) % Total Protein 6.5 (5.8-8.3) g/dL Albumin 3.3 (3.0-4.8) g/dL Globulin 3.2 gm/dL Albumin/Globulin Ratio 1.0 L (1.1-1.8) Triglycerides 149 (35-160) mg/dL Cholesterol 128 L (130-200) mg/dL LDL Cholesterol Direct 69 (0-129) mg/dL HDL Cholesterol 31 (29-60) mg/dL Free T4 (0.78-2.19) ng/dL TSH 3rd Generation (0.46-4.68) mIU/mL Venous Blood Potassium (3.6-5.2) mmol/L Urine Color (YELLOW) Urine Appearance (CLEAR) Urine pH (4.7-8.0) Ur Specific [place] (1.005-1.035) Urine Protein (<30 mg/dL) mg/dL Urine Glucose (UA) (NEGATIVE) mg/dL Urine Ketones (NEGATIVE) mg/dL Urine Blood (NEGATIVE) Urine Nitrate (NEGATIVE) Urine Bilirubin (NEGATIVE) Urine Urobilinogen (<1 E.U./dL) E.U./dL Ur Leukocyte Esterase (NEGATIVE) Jasen/uL Urine RBC (0-2) /hpf Urine WBC (0-6) /hpf Urine Bacteria (NEG) [employer] (0.5-1.3) mmol/L 10/29/16 10/28/16 10/28/16 Range/Units 02:00 22:27 22:01 WBC (4.5-11.0) 10^3/ul RBC (3.5-6.1) 10^6/uL Hgb (12.0-16.0) g/dL Hct (36.0-48.0) % MCV (80.0-105.0) fl MCH (25.0-35.0) pg MCHC (31.0-37.0) g/dl RDW (11.5-14.5) % Plt Count (120.0-450.0) 10^3/uL MPV (7.0-11.0) fl Gran % (50.0-68.0) % Lymph % (Auto) (22.0-35.0) % [place] % (Auto) (1.0-6.0) % Eos % (Auto) (1.5-5.0) % Baso % (Auto) (0.0-3.0) % Gran # (1.4-6.5) Lymph # (1.2-3.4) [place] # (0.1-0.6) Eos # (0.0-0.7) Baso # (0.0-2.0) K/mm3 pO2 (30-55) mm/Hg VBG pH (7.32-7.43) VBG pCO2 (40-60) VBG HCO3 (21-28) mmol/l VBG Total CO2 (22-28) mmol.L VBG O2 Sat (Calc) (40-65) % VBG Base Excess (0.0-2.0) mmol/L VBG Potassium (3.6-5.2) mmol/L Sodium (132-148) mmol/L Chloride (98-107) mmol/L Glucose (65-105) mg/dl Lactate (0.7-2.1) mmol/L FiO2 % Potassium (3.6-5.0) mmol/L Carbon Dioxide (21-33) mmol/L Anion Gap (10-20) BUN (7-21) mg/dL Creatinine (0.5-1.4) mg/dL Est GFR ( Amer) Est GFR (Non-Af Amer) POC Glucose (mg/dL) 302 H (65-110) mg/dL Random Glucose (70-110) mg/dL Hemoglobin A1c (4.2-6.5) % Lactic Acid 1.5 (0.7-2.1) mmol/L Calcium (8.4-10.5) mg/dL Phosphorus (2.5-4.5) mg/dL Magnesium (1.7-2.2) mg/dL Total Bilirubin (0.2-1.3) mg/dL AST (14-36) U/L ALT (7-56) U/L Alkaline Phosphatase (38-126) U/L Total Creatine Kinase 1085 H (35-230) U/L CK-MB (CK-2) 2.7 (0.0-3.6) ng/mL CK-MB (CK-2) % Cancelled Total Protein (5.8-8.3) g/dL Albumin (3.0-4.8) g/dL Globulin gm/dL Albumin/Globulin Ratio (1.1-1.8) Triglycerides (35-160) mg/dL Cholesterol (130-200) mg/dL LDL Cholesterol Direct (0-129) mg/dL HDL Cholesterol (29-60) mg/dL Free T4 (0.78-2.19) ng/dL TSH 3rd Generation (0.46-4.68) mIU/mL Venous Blood Potassium (3.6-5.2) mmol/L Urine Color (YELLOW) Urine Appearance (CLEAR) Urine pH (4.7-8.0) Ur Specific [place] (1.005-1.035) Urine Protein (<30 mg/dL) mg/dL Urine Glucose (UA) (NEGATIVE) mg/dL Urine Ketones (NEGATIVE) mg/dL Urine Blood (NEGATIVE) Urine Nitrate (NEGATIVE) Urine Bilirubin (NEGATIVE) Urine Urobilinogen (<1 E.U./dL) E.U./dL Ur Leukocyte Esterase (NEGATIVE) Jasen/uL Urine RBC (0-2) /hpf Urine WBC (0-6) /hpf Urine Bacteria (NEG) [employer] (0.5-1.3) mmol/L 10/28/16 10/28/16 Range/Units 17:10 15:30 WBC (4.5-11.0) 10^3/ul RBC (3.5-6.1) 10^6/uL Hgb (12.0-16.0) g/dL Hct (36.0-48.0) % MCV (80.0-105.0) fl MCH (25.0-35.0) pg MCHC (31.0-37.0) g/dl RDW (11.5-14.5) % Plt Count (120.0-450.0) 10^3/uL MPV (7.0-11.0) fl Gran % (50.0-68.0) % Lymph % (Auto) (22.0-35.0) % [place] % (Auto) (1.0-6.0) % Eos % (Auto) (1.5-5.0) % Baso % (Auto) (0.0-3.0) % Gran # (1.4-6.5) Lymph # (1.2-3.4) [place] # (0.1-0.6) Eos # (0.0-0.7) Baso # (0.0-2.0) K/mm3 pO2 44 (30-55) mm/Hg VBG pH 7.28 L (7.32-7.43) VBG pCO2 47.0 (40-60) VBG HCO3 22.1 (21-28) mmol/l VBG Total CO2 23.5 (22-28) mmol.L VBG O2 Sat (Calc) 82.0 H (40-65) % VBG Base Excess -4.8 L (0.0-2.0) mmol/L VBG Potassium 4.3 (3.6-5.2) mmol/L Sodium 143.0 (132-148) mmol/L Chloride 112.0 H (98-107) mmol/L Glucose 236 H (65-105) mg/dl Lactate 2.7 H (0.7-2.1) mmol/L FiO2 21.0 % Potassium (3.6-5.0) mmol/L Carbon Dioxide (21-33) mmol/L Anion Gap (10-20) BUN (7-21) mg/dL Creatinine (0.5-1.4) mg/dL Est GFR ( Amer) Est GFR (Non-Af Amer) POC Glucose (mg/dL) (65-110) mg/dL Random Glucose (70-110) mg/dL Hemoglobin A1c (4.2-6.5) % Lactic Acid (0.7-2.1) mmol/L Calcium (8.4-10.5) mg/dL Phosphorus (2.5-4.5) mg/dL Magnesium (1.7-2.2) mg/dL Total Bilirubin (0.2-1.3) mg/dL AST (14-36) U/L ALT (7-56) U/L Alkaline Phosphatase (38-126) U/L Total Creatine Kinase (35-230) U/L CK-MB (CK-2) (0.0-3.6) ng/mL CK-MB (CK-2) % Total Protein (5.8-8.3) g/dL Albumin (3.0-4.8) g/dL Globulin gm/dL Albumin/Globulin Ratio (1.1-1.8) Triglycerides (35-160) mg/dL Cholesterol (130-200) mg/dL LDL Cholesterol Direct (0-129) mg/dL HDL Cholesterol (29-60) mg/dL Free T4 (0.78-2.19) ng/dL TSH 3rd Generation (0.46-4.68) mIU/mL Venous Blood Potassium 4.3 (3.6-5.2) mmol/L Urine Color Yellow (YELLOW) Urine Appearance Turbid (CLEAR) Urine pH 6.0 (4.7-8.0) Ur Specific [place] 1.025 (1.005-1.035) Urine Protein 100 H (<30 mg/dL) mg/dL Urine Glucose (UA) 250 H (NEGATIVE) mg/dL Urine Ketones Negative (NEGATIVE) mg/dL Urine Blood Moderate H (NEGATIVE) Urine Nitrate Negative (NEGATIVE) Urine Bilirubin Negative (NEGATIVE) Urine Urobilinogen 0.2 (<1 E.U./dL) E.U./dL Ur Leukocyte Esterase Large H (NEGATIVE) Jasen/uL Urine RBC 2 - 5 (0-2) /hpf Urine WBC 25 - 30 (0-6) /hpf Urine Bacteria Many (NEG) [employer] (0.5-1.3) mmol/L Laboratory Results - last 24 hr 10/28/16 10/28/16 10/28/16 15:30 17:10 22:01 WBC RBC Hgb Hct MCV MCH MCHC RDW Plt Count MPV Gran % Lymph % (Auto) [place] % (Auto) Eos % (Auto) Baso % (Auto) Gran # Lymph # [place] # Eos # Baso # pO2 44 VBG pH 7.28 L VBG pCO2 47.0 VBG HCO3 22.1 VBG Total CO2 23.5 VBG O2 Sat (Calc) 82.0 H VBG Base Excess -4.8 L VBG Potassium 4.3 Sodium 143.0 Chloride 112.0 H Glucose 236 H Lactate 2.7 H FiO2 21.0 Potassium Carbon Dioxide Anion Gap BUN Creatinine Est GFR ( Amer) Est GFR (Non-Af Amer) POC Glucose (mg/dL) 302 H Random Glucose Hemoglobin A1c Lactic Acid Calcium Phosphorus Magnesium Total Bilirubin AST ALT Alkaline Phosphatase Total Creatine Kinase CK-MB (CK-2) CK-MB (CK-2) % Total Protein Albumin Globulin Albumin/Globulin Ratio Triglycerides Cholesterol LDL Cholesterol Direct HDL Cholesterol Free T4 TSH 3rd Generation Venous Blood Potassium 4.3 Urine Color Yellow Urine Appearance Turbid Urine pH 6.0 Ur Specific [place] 1.025 Urine Protein 100 H Urine Glucose (UA) 250 H Urine Ketones Negative Urine Blood Moderate H Urine Nitrate Negative Urine Bilirubin Negative Urine Urobilinogen 0.2 Ur Leukocyte Esterase Large H Urine RBC 2 - 5 Urine WBC 25 - 30 Urine Bacteria Many [employer] 10/28/16 10/29/16 10/29/16 22:27 02:00 05:40 WBC 16.8 H D RBC 3.75 Hgb 10.9 L D Hct 35.0 L MCV 93.3 MCH 29.1 MCHC 31.1 RDW 15.4 H Plt Count 201 MPV 10.5 Gran % 89.0 H Lymph % (Auto) 3.3 L [place] % (Auto) 7.6 H Eos % (Auto) 0.0 L Baso % (Auto) 0.1 Gran # 14.93 H Lymph # 0.6 L [place] # 1.3 H Eos # 0.0 Baso # 0.01 pO2 VBG pH VBG pCO2 VBG HCO3 VBG Total CO2 VBG O2 Sat (Calc) VBG Base Excess VBG Potassium Sodium Chloride Glucose Lactate FiO2 Potassium Carbon Dioxide Anion Gap BUN Creatinine Est GFR ( Amer) Est GFR (Non-Af Amer) POC Glucose (mg/dL) Random Glucose Hemoglobin A1c Lactic Acid 1.5 Calcium Phosphorus Magnesium Total Bilirubin AST ALT Alkaline Phosphatase Total Creatine Kinase 1085 H CK-MB (CK-2) 2.7 CK-MB (CK-2) % Cancelled Total Protein Albumin Globulin Albumin/Globulin Ratio Triglycerides Cholesterol LDL Cholesterol Direct HDL Cholesterol Free T4 TSH 3rd Generation Venous Blood Potassium Urine Color Urine Appearance Urine pH Ur Specific [place] Urine Protein Urine Glucose (UA) Urine Ketones Urine Blood Urine Nitrate Urine Bilirubin Urine Urobilinogen Ur Leukocyte Esterase Urine RBC Urine WBC Urine Bacteria [employer] 10/29/16 10/29/16 10/29/16 05:40 05:40 05:40 WBC RBC Hgb Hct MCV MCH MCHC RDW Plt Count MPV Gran % Lymph % (Auto) [place] % (Auto) Eos % (Auto) Baso % (Auto) Gran # Lymph # [place] # Eos # Baso # pO2 VBG pH VBG pCO2 VBG HCO3 VBG Total CO2 VBG O2 Sat (Calc) VBG Base Excess VBG Potassium Sodium 145 Chloride 114 H Glucose Lactate FiO2 Potassium 3.6 Carbon Dioxide 21 Anion Gap 14 BUN 11 Creatinine 1.0 Est GFR ( Amer) > 60 Est GFR (Non-Af Amer) 55 POC Glucose (mg/dL) Random Glucose 244 H Hemoglobin A1c 8.4 H Lactic Acid Calcium 8.5 Phosphorus 2.6 Magnesium 2.2 Total Bilirubin 0.5 AST 43 H ALT 59 H Alkaline Phosphatase 114 Total Creatine Kinase CK-MB (CK-2) CK-MB (CK-2) % Total Protein 6.5 Albumin 3.3 Globulin 3.2 Albumin/Globulin Ratio 1.0 L Triglycerides 149 Cholesterol 128 L LDL Cholesterol Direct 69 HDL Cholesterol 31 Free T4 1.22 TSH 3rd Generation 0.90 Venous Blood Potassium Urine Color Urine Appearance Urine pH Ur Specific [place] Urine Protein Urine Glucose (UA) Urine Ketones Urine Blood Urine Nitrate Urine Bilirubin Urine Urobilinogen Ur Leukocyte Esterase Urine RBC Urine WBC Urine Bacteria [employer] 10/29/16 10/29/16 05:40 07:20 WBC RBC Hgb Hct MCV MCH MCHC RDW Plt Count MPV Gran % Lymph % (Auto) [place] % (Auto) Eos % (Auto) Baso % (Auto) Gran # Lymph # [place] # Eos # Baso # pO2 VBG pH VBG pCO2 VBG HCO3 VBG Total CO2 VBG O2 Sat (Calc) VBG Base Excess VBG Potassium Sodium Chloride Glucose Lactate FiO2 Potassium Carbon Dioxide Anion Gap BUN Creatinine Est GFR ( Amer) Est GFR (Non-Af Amer) POC Glucose (mg/dL) Random Glucose Hemoglobin A1c Lactic Acid Calcium Phosphorus Magnesium Total Bilirubin AST ALT Alkaline Phosphatase Total Creatine Kinase 903 H CK-MB (CK-2) 1.9 CK-MB (CK-2) % Cancelled Total Protein Albumin Globulin Albumin/Globulin Ratio Triglycerides Cholesterol LDL Cholesterol Direct HDL Cholesterol Free T4 TSH 3rd Generation Venous Blood Potassium Urine Color Urine Appearance Urine pH Ur Specific [place] Urine Protein Urine Glucose (UA) Urine Ketones Urine Blood Urine Nitrate Urine Bilirubin Urine Urobilinogen Ur Leukocyte Esterase Urine RBC Urine WBC Urine Bacteria [employer] 0.6 Critical Care Progress Note - Nutrition Nutrition: Nutrition Category Date Time Status Heart Healthy Diet [DIET] Diets 10/28/16 Dinner Ordered Assessment/Plan - Assessment and Plan (Free Text) Plan: Patient seen and examined on rounds with resident Dr Kelley, agree with note, A/ P. Patient is 65yo female with PMHx of HTN, HLD, Bipolar disorder a/w Syncope, mild rhabdomyolysis, UTI, R ureteral stone s/p stent placement. Currently afebrile, HD stable, comfortable, with no major complaints. Patient with decreasing CK, renal function stable. Rhabdo UTI Nephrolithiasis Bipolar Disorder Recommend - supp O2 - cont with abx as per ID, Rocephin IV daily - follow up cultures - follow up Urology - resume home BP meds - IVF - resume Diet - Synthroid - FS control - Cont with Callum Borges - ECHO - trasnfer to remote tele
--- NOTE | 2016-10-29 10:01 | US ---
HISTORY: r/o ascites COMPARISON: Unenhanced abdomen and pelvis CT examination 10/28/2016. TECHNIQUE: Sonographic evaluation of the abdomen. FINDINGS: LIVER: Measures 19.8 cm. There is hepatomegaly with extensive increased echogenicity throughout the liver agreeing with CT findings of diffuse fatty infiltration. No definitive mass is isolated in this sonographic evaluation however. No appendix cysts is seen and there is no prominent intrahepatic biliary dilatation. GALLBLADDER: Prior cholecystectomy. . COMMON BILE DUCT: Measures 5.9 mm. No stones. No dilatation. PANCREAS: Unremarkable as visualized. No mass. No ductal dilatation. RIGHT KIDNEY: Measures 13.3cm. Mild hydronephrosis is suspected. Punctate intrarenal calculi are not identified sonographically but were seen in 09/1930 CT. No perinephric reaction. LEFT KIDNEY: Measures 12.2cm. Normal echogenicity. No calculus, mass, or hydronephrosis. Punctate intrarenal calculi are not identified sonographically but were seen in 09/1930 CT. No perinephric reaction identified. SPLEEN: Normal in size and contour. No mass. AORTA: No aneurysmal dilatation. IVC: Unremarkable. OTHER FINDINGS: None. IMPRESSION: 1. Hepatomegaly with diffuse fatty infiltration, in agreement with CT 10/28/2016. 2. Prior cholecystectomy. 3. Mild right hydronephrosis, also in agreement with same CT noted above.
--- NOTE | 2016-10-29 10:01 | RAD ---
PROCEDURE: Abdomen three views HISTORY: is ureteral stone visible? COMPARISON: TECHNIQUE: Three views of the abdomen were obtained FINDINGS: There is a 10 mm stone in the lower pole of the right kidney. There is a 7 mm stone in the upper pole of the left kidney. There is a 5 mm stone alongside the ureteral stent just below the sacrum. IMPRESSION: As above
[2016-10-29] MEDS: Lactobacillus Acidophilus 500 MU Cap PO SCH ×2 (10:04→17:45)
[2016-10-29] MEDS: cefTRIAXone 1 gm 1 GM/100 ML BAG IVPB SCH (10:06)
[2016-10-29] MEDS: diltiaZEM 240 mg/24 Hours CD Cap PO SCH (10:10)
[2016-10-29] MEDS: Levothyroxine 88 MCG TAB PO SCH (10:35)
--- NOTE | 2016-10-29 12:34 | US ---
PROCEDURE: Bilateral carotid artery duplex ultrasound HISTORY: Carotid stenosis PHYSICIAN(S): Michael Otoole MD. TECHNIQUE: Duplex sonography and color-flow Doppler were used to evaluate the carotid bifurcations and limited segments of the vertebral arteries bilaterally. FINDINGS: There is mild smooth heterogeneous plaque noted at the carotid bifurcations bilaterally. The peak systolic velocity in the proximal right internal carotid artery is 104 cm/sec. This corresponds to a 20 to 39% proximal right ICA stenosis. Normal systolic velocities are noted in the proximal right external carotid artery. There is antegrade flow in the right vertebral artery. The peak systolic velocity in the proximal left internal carotid artery is 70 cm/sec. This corresponds to a 20 to 39% proximal left ICA stenosis. Normal systolic velocities are noted in the proximal left external carotid artery. There is antegrade flow in the left vertebral artery. IMPRESSION: 1. Bilateral 20-39% proximal ICA stenoses. 2. Antegrade flow in both vertebral arteries.
--- NOTE | 2016-10-29 17:15 | CARD ---
APPROVED REPORT EXAM: Two-dimensional and M-mode echocardiogram with Doppler and color Doppler. INDICATION LOC/LVFX 2D DIMENSIONS Left Atrium (2D)3.5 (1.6-4.0cm)IVSd0.9 (0.7-1.1cm) LVDd4.3 (3.9-5.9cm)PWd1.0 (0.7-1.1cm) LVDs2.8 (2.5-4.0cm)FS (%) 35.7 % LVEF (%)65.6 (>50%) M-Mode DIMENSIONS Aortic Root3.00 (2.2-3.7cm)Aortic Cusp Exc.1.70 (1.5-2.0cm) Aortic Valve AoV Peak Lbcqafkw223.0cm/Basia Peak GR.12mmHg Mitral Valve MV E Tobwsigq519.0cm/sMV A Kpuoedev94.7cm/sE/A ratio1.5 TDI Lateral E' Peak V13.50cm/sMedial E' Peak V11.20cm/sE/Lateral E'8.9 E/Medial E'10.7 Pulmonary Valve PV Peak Dreqwjru74.1cm/sPV Peak Grad.2mmHg Tricuspid Valve TR Peak [id number]/sRAP [id number] Peak Gr.28mmHg [id number] LEFT VENTRICLE The left ventricle is normal size. There is normal left ventricular wall thickness. The left ventricular function is normal. The left ventricular ejection fraction is within the normal range. There is normal LV segmental wall motion. RIGHT VENTRICLE The right ventricle is normal size. The right ventricular systolic function is normal. ATRIA The left atrium size is normal. The right atrium size is normal. The interatrial septum is intact with no evidence for an atrial septal defect. AORTIC VALVE The aortic valve is normal in structure. No aortic regurgitation is present. There is no aortic valvular stenosis. MITRAL VALVE The mitral valve is normal in structure. Mitral regurgitation is mild. TRICUSPID VALVE The tricuspid valve is normal in structure. There is mild tricuspid regurgitation. PULMONIC VALVE The pulmonary valve is normal in structure. GREAT VESSELS The aortic root is normal in size. The IVC is normal in size and collapses >50% with inspiration. PERICARDIAL EFFUSION There is no pleural effusion. There is no pericardial effusion. <Conclusion> Normal chamber size. Normal LV systolic function. Mild MR and TR.
--- NOTE | 2016-10-29 19:08 | CON ---
CHIEF COMPLAINT: Weakness from several days. HISTORY OF PRESENT ILLNESS: This is a 65-year-old female with history of hypertension, hyperlipidemia and was seen in emergency room after a fall and the patient also has a history of Parkinson's disease, history of anxiety, and found to have fever at the emergency room with a white count ____. The patient was seen by Dr. Miranda. She had fallen on the floor at home, that prompted the admission, which resulted CAT scan findings and Dr. Miranda had taken to the OR, had a cystoscopy and insertion of right pigtail stent, infectious disease consultation requested for antibiotic choice. REVIEW OF SYSTEMS: The patient denies any fevers after hospitalization at [facility] on 02/02/2016. She denies any abdominal pain, diarrhea or constipation. No dysuria or frequency. PAST MEDICAL HISTORY: Significant for Parkinson's disease, hypertension, hyperlipidemia, anxiety, arthritis, depression, bipolar and cataract and hyperthyroidism. PAST SURGICAL HISTORY: Significant for cholecystectomy, left breast lumpectomy and cataract surgery. ALLERGIES: THE PATIENT HAS NO KNOWN ALLERGIES. MEDICATIONS AT HOME: Reveals the patient to be on metformin, Cardizem, Seroquel, Mirapex and lithium. Dr. Miranda's operative report is reviewed and the patient had CAT scan of the abdomen and pelvis noted. PHYSICAL EXAMINATION: VITAL SIGNS: The patient is in bed in no acute distress with temperature of 98, T-max of 102.4, respiratory rate of 35, heart rate of 104, blood pressure is 140/70. HEENT: Unremarkable. NECK: Supple. LUNGS: Decreased breath sounds. HEART: Normal S1 and S2. ABDOMEN: Soft, nontender. No rebound. No guarding. No masses. LABORATORY DATA: Reveals white count of 21,000, hemoglobin 13, platelets of 263, and 96 granulocytosis, coagulation is noted. Chemistries reveals the BUN of 11, creatinine of 1.0. LFTs were elevated. CK is 1085. Urinalysis reveals 25 to 30 WBCs, RBCs only 2 to 5 with leukocytes esterase. There is 100 protein, many bacteria. [place] level 0.6. Microbiology is pending. The patient had a CAT scan of the abdomen, pelvis and chest. Bilateral nephrolithiasis is noted obstructing 6 mm right distal ureter stone, moderate hydronephrosis and perinephric stranding. ASSESSMENT AND PLAN: A 65-year-old female with hypertension, diabetes, hyperlipidemia, Parkinson's disease, anxiety, arthritis, depression, bipolar, cataract, hyperthyroidism, admitted now with SIRS, systemic inflammatory response syndrome, status post cystoscopy with right ureteral stone and pigtail stent placement for the stone. We will start the patient on ceftriaxone 1 g q. 24 hours. Reviewed the old cultures, the patient has not had any resistant organisms in the past. Pending blood cultures and urine cultures. We will follow closely with you. Karl Culp MD
[2016-10-29] MEDS ORDERED: Albuterol-Ipratrop 3 mg / 0.5 (3 ml) UD ONE (20:52)
[2016-10-29] MEDS: Albuterol-Ipratrop 3 mg / 0.5 (3 ml) UD IH SCH (21:07)
[2016-10-29 21:23] LABS: ARTERIAL BLOOD GAS HCO3 19.7 mmol/L (21-28); ARTERIAL BLOOD GAS O2 CAPACITY 14.5 mL/dl (16-24); ARTERIAL BLOOD GAS O2 CONTENT 13.4 ML/dl (15-23); ARTERIAL BLOOD GAS PH 7.37 (7.35-7.45); ARTERIAL BLOOD HGB O2 SAT 86.7 % (95.0-98.0); CARBOXYHEMOGLOBIN 2.1 % (0.5-1.5); METHEMOGLOBIN 4.2 % (0.0-3.0)
[2016-10-30] MEDS: Albuterol-Ipratrop 3 mg / 0.5 (3 ml) UD IH SCH ×7 (01:07→20:47)
[2016-10-30] MEDS: Sodium Chloride 0.9% 1,000 ML IV SCH ×2 (01:30→07:30)
[2016-10-30 05:19] LABS: BASO # 0.02 K/mm3 (0.0-2.0); BASO % 0.2 % (0.0-3.0); EOS # 0.1 (0.0-0.7); GRAN # 10.02 (1.4-6.5); GRAN % 86.7 % (50.0-68.0); LYMPH # 0.8 (1.2-3.4); LYMPH % 7.1 % (22.0-35.0); MEAN CELL VOLUME 95.7 fl (80.0-105.0); MEAN CORPUSCULAR HGB CONC 30.3 g/dl (31.0-37.0); MEAN PLATELET VOLUME 10.8 fl (7.0-11.0); MONO # 0.6 (0.1-0.6); RED CELL DISTRIBUTION WIDTH 15.9 % (11.5-14.5); WHITE BLOOD COUNT 11.6 10^3/ul (4.5-11.0)
[2016-10-30 05:24] LABS: ALKALINE PHOSPHATASE 107 U/L (38-126); ALT/SGPT 55 U/L (7-56); AST/SGOT 25 U/L (14-36); BILIRUBIN,TOTAL 0.2 mg/dL (0.2-1.3); BLOOD UREA NITROGEN 12 mg/dL (7-21); CALCIUM 8.8 mg/dL (8.4-10.5); CARBON DIOXIDE 21 mmol/L (21-33); CHLORIDE 121 mmol/L (98-107); GFR AFRICAN-AMERICAN > 60; GLUCOSE,RANDOM 276 mg/dL (70-110); POTASSIUM 3.8 mmol/L (3.6-5.0); SODIUM 152 mmol/L (132-148); TOTAL PROTEIN 6.1 g/dL (5.8-8.3)
[2016-10-30] MEDS: Insulin Lispro (humaLOG) LOW Coverage SC SCH ×4 (08:03→23:53)
--- NOTE | 2016-10-30 08:30 | RAD ---
HISTORY: SOB COMPARISON: Chest x-ray performed 10/28/16 TECHNIQUE: Chest, one view. FINDINGS: Examination limited by habitus, hypoinflation, and patient obliquity. Multiple external wires, leads, and devices obscure evaluation of the underlying parenchyma. LUNGS: Moderate interstitial prominence may reflect infection or edema. Small left pleural effusion and/or consolidation. No definite pneumothorax. CARDIOVASCULAR: Heart size appears top normal. OSSEOUS STRUCTURES: No acute osseous abnormality is identified. VISUALIZED UPPER ABDOMEN: Elevation of the right hemidiaphragm. OTHER FINDINGS: None. IMPRESSION: Moderate interstitial prominence may reflect infection or edema. Small left pleural effusion and/or consolidation.
[2016-10-30] MEDS: Levothyroxine 88 MCG TAB PO SCH (10:08)
[2016-10-30] MEDS: cefTRIAXone 1 gm 1 GM/100 ML BAG IVPB SCH (10:10)
[2016-10-30] MEDS: diltiaZEM 240 mg/24 Hours CD Cap PO SCH (10:12)
[2016-10-30] MEDS: Lactobacillus Acidophilus 500 MU Cap PO SCH (10:12)
--- NOTE | 2016-10-30 12:38 | PN ---
DATE: 10/30/2016 The patient is comfortable. Her urine and blood cultures have been positive. We are waiting for ID of the organism and to see if she can be put on p.o. antibiotic. Her white count has come down to 11,600 from almost 22,000 when she came in. She has no fever or chills. She is tolerating the stent nicely. She was told to follow up in the office in several weeks and we then schedule her for an elective ureteroscopy and laser of the obstructing stone. Meng Miranda MD
--- NOTE | 2016-10-30 14:28 | PN ---
DATE: 10/30/2016 SUBJECTIVE: The patient is in bed, was seen earlier this morning, in no acute distress, nontoxic. No fevers. No chills. She appears to be comfortable, doing well. PHYSICAL EXAMINATION VITAL SIGNS: Temperature is down to 97, T-max was 101 two days ago, respiratory rate of 23. Blood pressure of 130/80. HEENT: Unremarkable. NECK: Supple. LUNGS: Decreased breath sounds. HEART: Normal S1, S2. ABDOMEN: Soft. LABORATORY DATA: Reveals a white count of 11,000, hemoglobin of 10, platelets of 203. Chemistries reveals a BUN of 12, creatinine 1.0, and urinalysis is noted. Microbiology reveals Gram-negative rods in the blood and Gram-negative rods in the urine. I have not notified these culture results neither the blood nor the urine. Chest x-ray from this morning is noted, interstitial prominence and abdominal x-ray from yesterday morning rather is noted. ASSESSMENT AND PLAN: A 65-year-old female seen earlier today in the unit with hypertension, hyperlipidemia, bipolar, cataract, hyperthyroidism, admitted with sepsis with Gram-negative lane bacteremia, and Gram-negative lane in the urine, infected stone status post cystoscopy with ureteral stone and pigtail stent placement for the stone. Currently on ceftriaxone. We will check on the identification of the Gram-negative lane in the blood and the urine and we will make further recommendations. The patient appears to be improving; improvement in white count and fever. Case discussed with Dr. Miranda. Karl Culp MD
[2016-10-31] MEDS: Albuterol-Ipratrop 3 mg / 0.5 (3 ml) UD IH SCH ×3 (00:40→07:59)
[2016-10-31] MEDS ORDERED: Albuterol-Ipratrop 3 mg / 0.5 (3 ml) UD IH STA (03:42)
--- NOTE | 2016-10-31 03:45 | CP.PCM.PN ---
Subjective - Date & Time of Evaluation Date of Evaluation: 10/31/16 Time of Evaluation: 03:33 - Subjective Subjective: Patient was seen at bedside . She was desaturating and dyspnic ,that is why I was called. Complains not feeling well, has shortness of breath. Received a neb treatment few minutes ago. Denies chest pain, nausea , vomiting ,sweating, palpitation. ROS: Negative except as mentioned above. Gives history of HTN, family history of brother having a heart attack at age of 43 years. Medical record was reviewed. This 65 year old old white woman was admitted with nausea, vomiting,dehydration , hyperglycemia. Has past medical history of HTN, anxiety. Objective - Vital Signs/Intake and Output Vital Signs (last 24 hours): Temp Pulse Resp BP Pulse Ox 98.6 F 111 H 24 163/75 H 88 L 10/30/16 11:57 10/31/16 03:00 10/31/16 03:00 10/31/16 03:00 10/31/16 03:00 Intake and Output: 10/30/16 10/31/16 18:59 06:59 Intake Total 1920 540 Output Total 1100 400 Balance 820 140 - Medications Medications: Current Medications Acetaminophen (Tylenol 325mg Tab) 650 mg PO Q6H PRN PRN Reason: Fever >100.4 F Last Admin: 10/29/16 10:05 Dose: 650 mg Albuterol/Ipratropium (Duoneb 3 Mg/0.5 Mg (3 Ml) Ud) 3 ml IH Q4H [facility] Last Admin: 10/31/16 00:40 Dose: Not Given Diltiazem HCl (Cardizem Cd) 240 mg PO DAILY [facility] Last Admin: 10/30/16 10:12 Dose: 240 mg Famotidine (Pepcid) 20 mg PO 1000,2200 [facility] Last Admin: 10/30/16 22:06 Dose: 20 mg Heparin Sodium (Porcine) (Heparin) 5,000 units SC Q12 [facility] PRN Reason: Protocol Last Admin: 10/30/16 22:04 Dose: 5,000 units Ceftriaxone Sodium (Rocephin 1 Gram Ivpb) 1 gm in 100 mls @ 100 mls/hr IVPB DAILY [facility] PRN Reason: Protocol Stop: 11/07/16 10:01 Last Admin: 10/30/16 10:10 Dose: 100 mls/hr Insulin Human Lispro (Humalog Low) 0 units SC ACHS [facility] PRN Reason: Protocol Last Admin: 10/30/16 23:53 Dose: 2 units Lactobacillus Acidophilus (Bacid Acidophilus) 1 cap PO BID [facility] Last Admin: 10/30/16 10:12 Dose: 1 cap Levothyroxine Sodium (Synthroid) 88 mcg PO DAILY [facility] Last Admin: 10/30/16 10:08 Dose: 88 mcg Bedminster Carbonate (Bedminster Carbonate 300mg) 300 mg PO BID [facility] Last Admin: 10/30/16 10:09 Dose: 300 mg Losartan Potassium (Cozaar) 50 mg PO DAILY [facility] Last Admin: 10/30/16 10:08 Dose: 50 mg Morphine Sulfate (Morphine) 1 mg IVP Q4H PRN PRN Reason: Pain, moderate (4-7) Phenazopyridine HCl (Pyridium) 200 mg PO TID [facility] Last Admin: 10/30/16 13:22 Dose: 200 mg Pramipexole Dihydrochloride (Mirapex) 1 mg PO TID [facility] Last Admin: 10/30/16 17:35 Dose: 1 mg Quetiapine Fumarate (Seroquel) 50 mg PO HS [facility] Last Admin: 10/30/16 22:07 Dose: 50 mg Ziprasidone (Geodon Cap) 80 mg PO BID [facility] Last Admin: 10/30/16 17:36 Dose: 80 mg - Labs Labs: 10/30/16 05:12 10/30/16 05:12 PT 11.6 Seconds (9.9-11.8) 10/28/16 13:40 INR 1.07 (0.93-1.08) 10/28/16 13:40 APTT 28.7 Seconds (23.7-30.8) 10/28/16 13:40 Laboratory Last Values WBC 11.6 10^3/ul (4.5-11.0) H D 10/30/16 05:12 RBC 3.45 10^6/uL (3.5-6.1) L 10/30/16 05:12 Hgb 10.0 g/dL (12.0-16.0) L 10/30/16 05:12 Hct 33.0 % (36.0-48.0) L 10/30/16 05:12 MCV 95.7 fl (80.0-105.0) 10/30/16 05:12 MCH 29.0 pg (25.0-35.0) 10/30/16 05:12 MCHC 30.3 g/dl (31.0-37.0) L 10/30/16 05:12 RDW 15.9 % (11.5-14.5) H 10/30/16 05:12 Plt Count 203 10^3/uL (120.0-450.0) 10/30/16 05:12 MPV 10.8 fl (7.0-11.0) 10/30/16 05:12 Gran % 86.7 % (50.0-68.0) H 10/30/16 05:12 Lymph % (Auto) 7.1 % (22.0-35.0) L 10/30/16 05:12 Woodruff % (Auto) 5.0 % (1.0-6.0) 10/30/16 05:12 Eos % (Auto) 1.0 % (1.5-5.0) L 10/30/16 05:12 Baso % (Auto) 0.2 % (0.0-3.0) 10/30/16 05:12 Gran # 10.02 (1.4-6.5) H 10/30/16 05:12 Lymph # 0.8 (1.2-3.4) L 10/30/16 05:12 Woodruff # 0.6 (0.1-0.6) 10/30/16 05:12 Eos # 0.1 (0.0-0.7) 10/30/16 05:12 Baso # 0.02 K/mm3 (0.0-2.0) 10/30/16 05:12 Neutrophils % (Manual) 92 % (50.0-70.0) H 10/28/16 13:40 Band Neutrophils % 2 % (0-2) 10/28/16 13:40 Lymphocytes % (Manual) 5 % (22.0-35.0) L 10/28/16 13:40 Monocytes % (Manual) 1 % (1.0-6.0) 10/28/16 13:40 Platelet Evaluation Normal (NORMAL) 10/28/16 13:40 Anisocytosis (manual) Slight 10/28/16 13:40 PT 11.6 Seconds (9.9-11.8) 10/28/16 13:40 INR 1.07 (0.93-1.08) 10/28/16 13:40 APTT 28.7 Seconds (23.7-30.8) 10/28/16 13:40 pCO2 34 mm/Hg (35-45) L 10/29/16 21:20 pO2 54.0 mm/Hg (80-100) L 10/29/16 21:20 HCO3 19.7 mmol/L (21-28) L 10/29/16 21:20 ABG pH 7.37 (7.35-7.45) 10/29/16 21:20 ABG Total CO2 20.7 mmol.L (22-28) L 10/29/16 21:20 ABG O2 Saturation 92.5 % (95-98) L 10/29/16 21:20 ABG O2 Content 13.4 ML/dl (15-23) L 10/29/16 21:20 ABG Base Excess -4.9 mmol/L (-2.0-3.0) L 10/29/16 21:20 ABG Hemoglobin 11.0 g/dL (11.7-17.4) L 10/29/16 21:20 ABG Carboxyhemoglobin 2.1 % (0.5-1.5) H 10/29/16 21:20 POC ABG HHb (Measured) 7.0 % (0-5) H 10/29/16 21:20 ABG Methemoglobin 4.2 % (0.0-3.0) H 10/29/16 21:20 ABG O2 Capacity 14.5 mL/dl (16-24) L 10/29/16 21:20 VBG pH 7.28 (7.32-7.43) L 10/28/16 17:10 VBG pCO2 47.0 (40-60) 10/28/16 17:10 VBG HCO3 22.1 mmol/l (21-28) 10/28/16 17:10 VBG Total CO2 23.5 mmol.L (22-28) 10/28/16 17:10 VBG O2 Sat (Calc) 82.0 % (40-65) H 10/28/16 17:10 VBG Base Excess -4.8 mmol/L (0.0-2.0) L 10/28/16 17:10 VBG Potassium 4.3 mmol/L (3.6-5.2) 10/28/16 17:10 Hgb O2 Saturation 86.7 % (95.0-98.0) L 10/29/16 21:20 Sodium 143.0 mmol/L (132-148) 10/28/16 17:10 Chloride 112.0 mmol/L (98-107) H 10/28/16 17:10 Glucose 236 mg/dl (65-105) H 10/28/16 17:10 Lactate 2.7 mmol/L (0.7-2.1) H 10/28/16 17:10 FiO2 28.0 % 10/29/16 21:20 Sodium 152 mmol/L (132-148) H 10/30/16 05:12 Potassium 3.8 mmol/L (3.6-5.0) 10/30/16 05:12 Chloride 121 mmol/L (98-107) H 10/30/16 05:12 Carbon Dioxide 21 mmol/L (21-33) 10/30/16 05:12 Anion Gap 14 (10-20) 10/30/16 05:12 BUN 12 mg/dL (7-21) 10/30/16 05:12 Creatinine 1.0 mg/dL (0.5-1.4) 10/30/16 05:12 Est GFR ( Amer) > 60 10/30/16 05:12 Est GFR (Non-Af Amer) 55 10/30/16 05:12 POC Glucose (mg/dL) 234 mg/dL (65-110) H 10/31/16 03:06 Random Glucose 276 mg/dL (70-110) H 10/30/16 05:12 Hemoglobin A1c 8.4 % (4.2-6.5) H 10/29/16 05:40 Lactic Acid 1.5 mmol/L (0.7-2.1) 10/28/16 22:27 Calcium 8.8 mg/dL (8.4-10.5) 10/30/16 05:12 Phosphorus 2.6 mg/dL (2.5-4.5) 10/29/16 05:40 Magnesium 2.2 mg/dL (1.7-2.2) 10/29/16 05:40 Total Bilirubin 0.2 mg/dL (0.2-1.3) 10/30/16 05:12 AST 25 U/L (14-36) 10/30/16 05:12 ALT 55 U/L (7-56) 10/30/16 05:12 Alkaline Phosphatase 107 U/L (38-126) 10/30/16 05:12 Lactate Dehydrogenase 581 U/L (333-699) 10/28/16 13:40 Total Creatine Kinase 403 U/L (35-230) H 10/30/16 07:39 CK-MB (CK-2) 1.0 ng/mL (0.0-3.6) 10/30/16 07:39 CK-MB (CK-2) % Cancelled 10/28/16 13:40 Troponin I < 0.01 ng/mL 10/28/16 13:40 Total Protein 6.1 g/dL (5.8-8.3) 10/30/16 05:12 Albumin 3.0 g/dL (3.0-4.8) 10/30/16 05:12 Globulin 3.1 gm/dL 10/30/16 05:12 Albumin/Globulin Ratio 1.0 (1.1-1.8) L 10/30/16 05:12 Triglycerides 149 mg/dL (35-160) 10/29/16 05:40 Cholesterol 128 mg/dL (130-200) L 10/29/16 05:40 LDL Cholesterol Direct 69 mg/dL (0-129) 10/29/16 05:40 HDL Cholesterol 31 mg/dL (29-60) 10/29/16 05:40 Procalcitonin 2.53 NG/ML (0.19-0.49) H 10/28/16 22:27 Free T4 1.22 ng/dL (0.78-2.19) 10/29/16 05:40 TSH 3rd Generation 0.90 mIU/mL (0.46-4.68) 10/29/16 05:40 Venous Blood Potassium 4.3 mmol/L (3.6-5.2) 10/28/16 17:10 Urine Color Yellow (YELLOW) 10/28/16 15:30 Urine Appearance Turbid (CLEAR) 10/28/16 15:30 Urine pH 6.0 (4.7-8.0) 10/28/16 15:30 Ur Specific Cutler 1.025 (1.005-1.035) 10/28/16 15:30 Urine Protein 100 mg/dL (<30 mg/dL) H 10/28/16 15:30 Urine Glucose (UA) 250 mg/dL (NEGATIVE) H 10/28/16 15:30 Urine Ketones Negative mg/dL (NEGATIVE) 10/28/16 15:30 Urine Blood Moderate (NEGATIVE) H 10/28/16 15:30 Urine Nitrate Negative (NEGATIVE) 10/28/16 15:30 Urine Bilirubin Negative (NEGATIVE) 10/28/16 15:30 Urine Urobilinogen 0.2 E.U./dL (<1 E.U./dL) 10/28/16 15:30 Ur Leukocyte Esterase Large Jasen/uL (NEGATIVE) H 10/28/16 15:30 Urine RBC 2 - 5 /hpf (0-2) 10/28/16 15:30 Urine WBC 25 - 30 /hpf (0-6) 10/28/16 15:30 Urine Bacteria Many (NEG) 10/28/16 15:30 Bedminster 0.6 mmol/L (0.5-1.3) 10/29/16 05:40 - Constitutional Appears: No Acute Distress - Head Exam Head Exam: ATRAUMATIC, NORMAL INSPECTION, NORMOCEPHALIC - Eye Exam Eye Exam: Normal appearance - ENT Exam ENT Exam: Mucous Membranes Moist - Neck Exam Neck Exam: Normal Inspection - Respiratory Exam Respiratory Exam: Rales (Basal rales present bilaterally.), Wheezes (+) - Cardiovascular Exam Cardiovascular Exam: REGULAR RHYTHM, +S1 (Normal.), +S2 (Normal.). absent: JVD - GI/Abdominal Exam GI & Abdominal Exam: absent: Distended - Rectal Exam Rectal Exam: Deferred - Exam Additional comments: Deferred. - Extremities Exam Extremities Exam: absent: Pedal Edema - Back Exam Back Exam: NORMAL INSPECTION - Neurological Exam Neurological Exam: Alert, Oriented x3 - Psychiatric Exam Psychiatric exam: Normal Affect, Normal Mood - Skin Skin Exam: Normal Color, Warm Assessment and Plan - Assessment and Plan (Free Text) Assessment: Hypoxia. Dyspnea. HTN. Anxiety. Rhabdomyolysis. Leukocytosis. Anemia. Elevated CK. Hypernatremia(Borderline). Hyperglycemia. Hematuria. UTI. Small left pleural effusion and infection vs.edema by Xray. Plan: CBC. CMP.--> Na 157 BNP.------>2940 Troponin. ABG.---> 7.37/36/65/20.8 EKG. Atrial fibrillation with RVR (rate of 112/min).Non specific ST T changes. Lead II shows sinus tachycardia ,sinus arrhythmia. CXR.--------------> No significant changes. Duoneb neb treatment stat. Lasix 40 mg IV stat. Hold IV fluid. Continue remote tele observation. Will notify PMD after labs are back and is warranted.
[2016-10-31 04:14] LABS: WHITE BLOOD COUNT 11.8 10^3/ul (4.5-11.0)
[2016-10-31 04:15] LABS: BASO # 0.03 K/mm3 (0.0-2.0); BASO % 0.3 % (0.0-3.0); EOS # 0.5 (0.0-0.7); EOS % 4.5 % (1.5-5.0); GRAN # 9.68 (1.4-6.5); GRAN % 82.2 % (50.0-68.0); HEMATOCRIT 35.2 % (36.0-48.0); LYMPH # 0.9 (1.2-3.4); LYMPH % 7.6 % (22.0-35.0); MEAN CELL VOLUME 98.1 fl (80.0-105.0); MEAN CORPUSCULAR HGB CONC 29.5 g/dl (31.0-37.0); MEAN PLATELET VOLUME 10.7 fl (7.0-11.0); MONO # 0.6 (0.1-0.6); MONO % 5.4 % (1.0-6.0); RED CELL DISTRIBUTION WIDTH 16.6 % (11.5-14.5)
[2016-10-31 04:16] LABS: ARTERIAL BLOOD GAS HCO3 20.8 mmol/L (21-28); ARTERIAL BLOOD GAS O2 CAPACITY 14.5 mL/dl (16-24); ARTERIAL BLOOD GAS O2 CONTENT 13.9 ML/dl (15-23); ARTERIAL BLOOD GAS PH 7.37 (7.35-7.45); ARTERIAL BLOOD HGB O2 SAT 93.7 % (95.0-98.0); CARBOXYHEMOGLOBIN 1.2 % (0.5-1.5); HHB 4.3 % (0-5); METHEMOGLOBIN 0.8 % (0.0-3.0)
[2016-10-31 04:21] LABS: ALKALINE PHOSPHATASE 152 U/L (38-126); ALT/SGPT 64 U/L (7-56); AST/SGOT 45 U/L (14-36); BILIRUBIN,TOTAL 0.3 mg/dL (0.2-1.3); BLOOD UREA NITROGEN 12 mg/dL (7-21); CALCIUM 9.6 mg/dL (8.4-10.5); CARBON DIOXIDE 20 mmol/L (21-33); CHLORIDE 125 mmol/L (98-107); GFR AFRICAN-AMERICAN > 60; GLUCOSE,RANDOM 244 mg/dL (70-110); POTASSIUM 3.7 mmol/L (3.6-5.0); TOTAL PROTEIN 6.9 g/dL (5.8-8.3)
[2016-10-31 04:25] LABS: SODIUM 157 mmol/L (132-148)
[2016-10-31 04:34] LABS: TROPONIN I < 0.01 ng/mL
[2016-10-31 06:19] LABS: BASO # 0.02 K/mm3 (0.0-2.0); BASO % 0.2 % (0.0-3.0); EOS # 0.6 (0.0-0.7); EOS % 4.3 % (1.5-5.0); GRAN # 10.6 (1.4-6.5); GRAN % 83.2 % (50.0-68.0); HEMATOCRIT 35.8 % (36.0-48.0); LYMPH % 7.8 % (22.0-35.0); MEAN CELL VOLUME 95.2 fl (80.0-105.0); MEAN CORPUSCULAR HGB CONC 30.4 g/dl (31.0-37.0); MEAN PLATELET VOLUME 10.8 fl (7.0-11.0); MONO # 0.6 (0.1-0.6); MONO % 4.5 % (1.0-6.0); RED CELL DISTRIBUTION WIDTH 16.3 % (11.5-14.5); WHITE BLOOD COUNT 12.8 10^3/ul (4.5-11.0)
[2016-10-31] MEDS: Insulin Lispro (humaLOG) LOW Coverage SC SCH ×4 (08:25→22:01)
--- NOTE | 2016-10-31 08:42 | RAD ---
HISTORY: sob, hypoxia. COMPARISON: Chest x-ray performed 10/29/16 TECHNIQUE: Chest, one view. FINDINGS: Examination limited by habitus and hypoinflation. LUNGS: Prominent interstitial markings may reflect infection or edema. Mild left basilar atelectasis or infiltrate. PLEURA: No significant pleural effusion identified. No definite pneumothorax . CARDIOVASCULAR: Heart size appears within normal limits. OSSEOUS STRUCTURES: No acute osseous abnormality identified. VISUALIZED UPPER ABDOMEN: Elevation of the right hemidiaphragm. OTHER FINDINGS: None. IMPRESSION: Persistent interstitial prominence may reflect infection or edema. Mild left basilar atelectasis or infiltrate.
[2016-10-31] MEDS: Lactobacillus Acidophilus 500 MU Cap PO SCH ×3 (10:18→17:16)
[2016-10-31] MEDS: cefTRIAXone 1 gm 1 GM/100 ML BAG IVPB SCH (10:21)
[2016-10-31] MEDS: Levothyroxine 88 MCG TAB PO SCH (10:40)
[2016-10-31] MEDS: diltiaZEM 240 mg/24 Hours CD Cap PO SCH (10:40)
--- NOTE | 2016-10-31 12:13 | PN ---
DATE: 10/31/2016 SUBJECTIVE: The patient is in bed, no acute distress, nontoxic. PHYSICAL EXAMINATION VITAL SIGNS: On exam, temperature is 98, blood pressure is 120/70 and respiratory rate is 16. HEENT: Unremarkable. NECK: Supple. CARDIOPULMONARY: Decreased breath sounds. HEART EXAM: Normal S1 and S2. ABDOMINAL EXAMINATION: Soft. LABORATORY EXAMINATION: Reveals a white count of up 12,800; hemoglobin of 10. Chemistries are noted. Creatinine is 1. LFTs, mild elevation with elevation of alk phos of 152 which is a new increase and the patient did have a procalcitonin of 2.53. MEDICATIONS: Review of medications reveals the patient to be on heparin, Lasix intermittently, lithium and ceftriaxone. Microbiology reveals Enterobacter asburiae in the blood and Enterobacter asburiae in the urine that is hernández-sensitive. The patient had a chest x-ray today, persistent interstitial prominence. Dr. Singh's note is reviewed. ASSESSMENT AND PLAN: This is a 65-year-old female, seen earlier today, hypertension, hyperlipidemia, bipolar, cataract, hyperthyroidism, admitted with sepsis with Enterobacter bacteremia and Enterobacter in the urine and an infected stone, status post cystoscopy, ureteral stone and pigtail stent placement. The patient appears to be still confused and maybe slightly more confused today with increase in white count. We will repeat hernández-cultures. Discontinue the ceftriaxone and use meropenem and order a procalcitonin, follow the WBCs, order an ultrasound of the gallbladder follow the patient's white count and clinical status pending hernández-cultures. Karl Culp MD
[2016-10-31] MEDS: Meropenem 1g/NS 100mL IVPB 1 GM/100 ML PIGGYBACK IVPB SCH ×3 (12:32→21:57)
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
--- NOTE | 2016-11-01 03:02 | PN ---
DATE: SUBJECTIVE: The patient is a 65-year-old female with history of parkinsonism, gastritis, depression, anxiety, status post left lumpectomy of the breast, who was admitted on 10/28/2016 with sepsis possible pneumonia and a 6 mm right ureteral calculus with right hydronephrosis. She primarily fell at home prior to admission. X-rays reveal possibility of left subcapital fracture. Her EKG showed sinus tachycardia with first degree AV block, left axis deviation and possible anterior ischemia. During her hospital stay she was treated with antibiotics. She is followed by Dr. Culp, infectious disease specialist. Dr. Miranda, placed a pigtail catheter in the right ureter on the day of admission to review the hydronephrosis. During the hospital stay, she underwent echocardiogram, which was essentially normal showing a 65% ejection fraction. Carotid Doppler showed bilateral 20 to 40% stenosis. Followup x-ray of the abdomen shows the calculus outside the stent. Followup chest x-ray showed increased interstitial markings consistent with pneumonia. Blood cultures and urine cultures came back with Gram-negative rods. Identification was Enterobacter. The patient had been treated with Rocephin. However, this Enterobacter is resistant to Kefzol. When seen today, the patient is awake, alert, and oriented. The patient apparently became confused. Her pulse ox showed 97%; however, blood gas on FiO2 of 32 showed a PO2 of 65. Patient was seen by the house doctor at that time and her oxygen via nasal canula was increased. The patient also received nebulizer treatment. As per the patient, it was after the nebulizer treatment, she became tachycardic, felt palpitations, and became short of breath. LABORATORY DATA: This morning labs showed white blood cell count of 12.8, hemoglobin and hematocrit of 10.9, and 35.8. Sodium is markedly elevated at 157, potassium is 3.7, BUN and creatinine are 12 and 1.0 respectively. Morning glucose is 283. Her BNP was elevated at 2940. ASSESSMENT AND PLAN: Her lungs at this time are clear. Her heart is regular at about 90 beats per minute. Blood pressure 151/61. So we have seen the patient became tachycardiac after nebulizer treatment and developed congestive heart failure. I will start the patient on Lasix 40 mg intravenously twice a day. We will be watching for its affect on the patient's lithium. She is receiving and we will continue to follow the patient closely. Lucas Flores MD [facility]
[2016-11-01] MEDS: Meropenem 1g/NS 100mL IVPB 1 GM/100 ML PIGGYBACK IVPB SCH ×3 (05:27→21:45)
[2016-11-01 06:30] LABS: BASO # 0.03 K/mm3 (0.0-2.0); BASO % 0.3 % (0.0-3.0); EOS # 0.6 (0.0-0.7); EOS % 5.3 % (1.5-5.0); GRAN # 9.22 (1.4-6.5); HEMATOCRIT 35.5 % (36.0-48.0); LYMPH # 1.5 (1.2-3.4); LYMPH % 12.1 % (22.0-35.0); MEAN CELL VOLUME 93.9 fl (80.0-105.0); MEAN CORPUSCULAR HEMOGLOBIN 28.8 pg (25.0-35.0); MEAN CORPUSCULAR HGB CONC 30.7 g/dl (31.0-37.0); MEAN PLATELET VOLUME 10.9 fl (7.0-11.0); MONO # 0.6 (0.1-0.6); MONO % 5.3 % (1.0-6.0)
[2016-11-01 07:00] LABS: ALB/GLOB RATIO 0.9 (1.1-1.8); ALKALINE PHOSPHATASE 152 U/L (38-126); ALT/SGPT 59 U/L (7-56); AST/SGOT 47 U/L (14-36); BILIRUBIN,TOTAL 0.5 mg/dL (0.2-1.3); BLOOD UREA NITROGEN 19 mg/dL (7-21); CALCIUM 9.2 mg/dL (8.4-10.5); CARBON DIOXIDE 25 mmol/L (21-33); CHLORIDE 108 mmol/L (95-110); GFR AFRICAN-AMERICAN > 60; GLUCOSE,RANDOM 273 mg/dL (70-110); POTASSIUM 3.4 mmol/L (3.6-5.0); SODIUM 146 mmol/L (132-148); TOTAL PROTEIN 7.6 g/dL (5.8-8.3)
--- NOTE | 2016-11-01 07:18 | CARD ---
APPROVED REPORT EKG Measurement Heart [id number] OR [id number] <Conclusion> Sinus tachycardia with premature supraventricular complexes Low voltage QRS Nonspecific ST and T wave abnormality Abnormal ECG
--- NOTE | 2016-11-01 07:38 | HP ---
HISTORY OF PRESENT ILLNESS: The patient is a 65-year-old female, who presented to the emergency room after apparently falling at home. She was brought in by [facility]. In the emergency room, she was evaluated and found to be septic and admitted with a diagnosis of sepsis and pneumonia. PAST MEDICAL HISTORY: She is known to have a past medical history positive for parkinsonism, gastritis, anxiety, and depression. PAST SURGICAL HISTORY: She is status post left breast lumpectomy. SOCIAL HISTORY: She is a nonsmoker, nonalcoholic drinker. ALLERGIES: SHE HAS NO KNOWN MEDICAL ALLERGIES. MEDICATIONS: At the time of admission included Seroquel, Geodon, Synthroid, lithium, Mirapex, Micardis, Cardizem, and Glucophage. REVIEW OF SYSTEMS: Otherwise unremarkable. The patient seems to be confused at times and is possibly a poor historian. PHYSICAL EXAMINATION HEENT: The head, eyes, ears, nose, and throat are unremarkable. NECK: Supple with no lymphadenopathy. No goiter. LUNGS: Clear to auscultation and percussion. ABDOMEN: Soft and nontender with no organomegaly. EXTREMITIES: Free of cyanosis, clubbing, or edema. NEUROLOGIC: The patient is awake, alert, and oriented. Her speech is slightly slurred, but that is her baseline. VITAL SIGNS: Her blood pressure is 132/63, heart rate is 108. LABORATORY DATA: Lab work shows the white blood cell count to be elevated at 16.8, hemoglobin and hematocrit of 10.9 and 35.0, platelet count is 201. Sodium is 145, potassium is 3.6, BUN is 11, creatinine 1.0. Nonfasting glucose is 244. Liver enzymes are slightly elevated with an AST to be 43 and ALT to be 59. The chest x-ray suggested a possible left lower lobe infiltrate. EKG showed sinus tachycardia with first-degree AV block, left axis deviation, and possible anterior ischemia. A CAT scan of the abdomen reveals a right hydronephrosis with a 6-mm calculus and a possible left subcapital fracture of the hip. So, the patient is admitted, consultation with Dr. Miranda is called because of the ureteral calculus. The patient was started on intravenous antibiotics, and she will be followed closely. Lucas Flores MD [facility] # [id number]
[2016-11-01] MEDS: Insulin Lispro (humaLOG) LOW Coverage SC SCH ×4 (07:54→21:34)
[2016-11-01 09:12] VITALS: O2SAT 96
[2016-11-01] MEDS: Levothyroxine 88 MCG TAB PO SCH (10:08)
[2016-11-01] MEDS: Lactobacillus Acidophilus 500 MU Cap PO SCH ×2 (10:08→17:33)
[2016-11-01] MEDS: diltiaZEM 240 mg/24 Hours CD Cap PO SCH (10:08)
--- NOTE | 2016-11-01 13:29 | PN ---
DATE: 11/01/2016 SUBJECTIVE: The patient is in bed, no acute distress, nontoxic and she is doing much better today. PHYSICAL EXAMINATION: VITAL SIGNS: Temperature is 99, blood pressure is 130/70, respiratory rate of 18, and heart rate of 93. HEENT: Unremarkable. NECK: Supple. LUNGS: Decreased breath sounds. HEART: Normal S1 and S2. ABDOMEN: Soft and nontender. LABORATORY DATA: Reveals a white count of 12,000, hemoglobin of 10, and platelets are 320. Chemistries reveals a BUN of 19 and creatinine of 1.1. Procalcitonin from yesterday is 2.57. Urinalysis is noted and microbiology reveals a blood cultures are positive for Enterobacter asburiae and urine culture is positive for Enterobacter asburiae and the repeat blood cultures are pending. Repeat urine cultures are pending. The patient is currently on meropenem and the patient had a chest x-ray yesterday, which shows interstitial prominence, may be a new infiltrate. Dr. Stef Dickson's rapid response report is reviewed from yesterday and Dr. Lucas Flores's note is reviewed from yesterday. ASSESSMENT AND PLAN: This is a 65-year-old female with hypertension, hyperlipidemia, bipolar, cataract, hyperthyroidism, admitted with sepsis and Enterobacter bacteremia and Enterobacter in the urine and an infected stone, status post cystoscopy, ureteral stone and pigtail stent placement, and less confused today. The patient is currently on meropenem, questionable nosocomial pneumonia because of elevated procalcitonin and mild shortness of breath and questionable infiltrates on x-ray. Continue treating this patient had sepsis with meropenem and we will check on the repeat pancultures and follow the repeat procalcitonin and x-ray. Karl Culp MD
--- NOTE | 2016-11-01 16:20 | CARD ---
APPROVED REPORT EKG Measurement Heart [id number] MD [id number] <Conclusion> Sinus rhythm with premature atrial complexes Nonspecific T wave abnormality Abnormal ECG
[2016-11-01] MEDS ORDERED: Potassium Chloride 20 mEq ER Tab PO ONE (21:00)
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
[2016-11-01 22:58] LABS: PH,URINE 6.5 (4.7-8.0); URINE BILIRUBIN NEGATIVE (NEGATIVE); URINE BLOOD TRACE-INTACT (NEGATIVE); URINE GLUCOSE (UA) NEGATIVE (NEGATIVE); URINE KETONE NEGATIVE (NEGATIVE); URINE LEUKOCYTE ESTERASE TRACE Leu/uL (NEGATIVE); URINE PROTEIN 30 mg/dL (<30 mg/dL)
[2016-11-01 23:02] LABS: URINE APPEARANCE SL CLOUDY (CLEAR); URINE COLOR DARK YELLOW (YELLOW)
[2016-11-01 23:09] LABS: URINE BACTERIA FEW (NEG); URINE RBC 0 - 2 /hpf (0-2)
[2016-11-02] MEDS: Meropenem 1g/NS 100mL IVPB 1 GM/100 ML PIGGYBACK IVPB SCH (05:03)
[2016-11-02 06:53] LABS: BASO # 0.02 K/mm3 (0.0-2.0); BASO % 0.2 % (0.0-3.0); EOS # 0.5 (0.0-0.7); EOS % 4.1 % (1.5-5.0); GRAN # 9.77 (1.4-6.5); GRAN % 78.3 % (50.0-68.0); HEMATOCRIT 38.2 % (36.0-48.0); LYMPH # 1.5 (1.2-3.4); LYMPH % 12.4 % (22.0-35.0); MEAN CELL VOLUME 93.4 fl (80.0-105.0); MEAN CORPUSCULAR HEMOGLOBIN 28.9 pg (25.0-35.0); MEAN CORPUSCULAR HGB CONC 30.9 g/dl (31.0-37.0); MEAN PLATELET VOLUME 10.8 fl (7.0-11.0); MONO # 0.6 (0.1-0.6); RED CELL DISTRIBUTION WIDTH 15.5 % (11.5-14.5); WHITE BLOOD COUNT 12.5 10^3/ul (4.5-11.0)
[2016-11-02 06:57] LABS: BILIRUBIN,TOTAL 0.4 mg/dL (0.2-1.3); CALCIUM 9.4 mg/dL (8.4-10.5); POTASSIUM 3.8 mmol/L (3.6-5.0); TOTAL PROTEIN 7.6 g/dL (5.8-8.3)
[2016-11-02] MEDS: Insulin Lispro (humaLOG) LOW Coverage SC SCH ×2 (08:20→12:31)
[2016-11-02] MEDS: Lactobacillus Acidophilus 500 MU Cap PO SCH (09:29)
[2016-11-02] MEDS: diltiaZEM 240 mg/24 Hours CD Cap PO SCH (09:29)
[2016-11-02] MEDS: Levothyroxine 88 MCG TAB PO SCH (09:36)
[2016-11-02 09:38] VITALS: BP 113/56
[2016-11-02 11:01] VITALS: PULSE 90; RESP 20; TEMP 97.8
--- NOTE | 2016-11-02 12:28 | CP.PCM.PN ---
Subjective - Date & Time of Evaluation Date of Evaluation: 11/02/16 Time of Evaluation: 09:45 - Subjective Subjective: Feeling better, no fevers overnight, not in distress, no nausea, no diarrhea. Objective - Vital Signs/Intake and Output Vital Signs (last 24 hours): Temp Pulse Resp BP Pulse Ox 97.8 F 90 20 113/56 L 96 11/02/16 11:00 11/02/16 11:00 11/02/16 11:00 11/02/16 11:00 11/02/16 11:00 Intake and Output: 11/02/16 11/02/16 06:59 18:59 Intake Total 1020 Output Total 1600 Balance -580 - Medications Medications: Current Medications Acetaminophen (Tylenol 325mg Tab) 650 mg PO Q6H PRN PRN Reason: Fever >100.4 F Last Admin: 11/01/16 13:40 Dose: 650 mg Diltiazem HCl (Cardizem Cd) 240 mg PO DAILY [facility] Last Admin: 11/02/16 09:29 Dose: 240 mg Famotidine (Pepcid) 20 mg PO 1000,2200 [facility] Last Admin: 11/02/16 09:29 Dose: 20 mg Furosemide (Lasix) 40 mg IVP Q12 [facility] Last Admin: 11/02/16 09:30 Dose: 40 mg Heparin Sodium (Porcine) (Heparin) 5,000 units SC Q12 [facility] PRN Reason: Protocol Last Admin: 11/02/16 09:30 Dose: 5,000 units Meropenem 1g/NS 100mL IVPB (Meropenem 1g/Ns 100ml Ivpb) 1 gm in 100 mls @ 100 mls/hr IVPB Q8 [place] PRN Reason: Protocol Stop: 11/09/16 10:49 Last Admin: 11/02/16 05:03 Dose: 100 mls/hr Insulin Human Lispro (Humalog Low) 0 units SC ACHS [facility] PRN Reason: Protocol Last Admin: 11/02/16 08:20 Dose: 2 units Lactobacillus Acidophilus (Bacid Acidophilus) 1 cap PO BID [facility] Last Admin: 11/02/16 09:29 Dose: 1 cap Levothyroxine Sodium (Synthroid) 88 mcg PO DAILY [facility] Last Admin: 11/02/16 09:36 Dose: 88 mcg [place] Carbonate ([place] Carbonate 300mg) 300 mg PO BID [facility] Last Admin: 11/02/16 09:30 Dose: 300 mg Losartan Potassium (Cozaar) 50 mg PO DAILY [facility] Last Admin: 11/02/16 09:30 Dose: 50 mg Morphine Sulfate (Morphine) 1 mg IVP Q4H PRN PRN Reason: Pain, moderate (4-7) Last Admin: 10/31/16 10:23 Dose: 1 mg Phenazopyridine HCl (Pyridium) 200 mg PO TID [facility] Last Admin: 11/02/16 09:29 Dose: 200 mg Pramipexole Dihydrochloride (Mirapex) 1 mg PO TID [facility] Last Admin: 11/02/16 09:29 Dose: 1 mg Quetiapine Fumarate (Seroquel) 100 mg PO HS [facility] Last Admin: 11/01/16 21:44 Dose: 100 mg Ziprasidone (Geodon Cap) 80 mg PO BID [facility] Last Admin: 11/02/16 09:29 Dose: 80 mg - Labs Labs: 11/02/16 05:45 11/02/16 05:45 PT 11.6 Seconds (9.9-11.8) 10/28/16 13:40 INR 1.07 (0.93-1.08) 10/28/16 13:40 APTT 28.7 Seconds (23.7-30.8) 10/28/16 13:40 - Constitutional Appears: Non-toxic, No Acute Distress - Head Exam Head Exam: NORMAL INSPECTION - ENT Exam ENT Exam: Mucous Membranes Moist - Neck Exam Neck Exam: absent: Meningismus - Respiratory Exam Respiratory Exam: Decreased Breath Sounds - Cardiovascular Exam Cardiovascular Exam: +S1, +S2 - GI/Abdominal Exam GI & Abdominal Exam: Soft. absent: Tenderness - Back Exam Back Exam: absent: CVA tenderness (L), CVA tenderness (R) Assessment and Plan - Assessment and Plan (Free Text) Plan: Assessment Sepsis due to Enterobacter asburiae bacteremia from pyelonephritis and infected ureterolithiasis S/P pigtail stent placement on the right HTN dyslipidemia history of bipolar disorder cataracts hyperthyroidism Plan Switched antibiotics from Merrem to Cefepime and will continue to monitor clinically - patient should receive 10-14 days of antibiotics
[2016-11-02] MEDS ORDERED: Cefepime IV 2 gm in NS 2 GM/100 ML BAG IVPB SCH (12:30)
--- NOTE | 2016-11-02 15:51 | PN ---
DATE: SUBJECTIVE: The patient is a 65-year-old female currently being treated for sepsis, urinary infection, and calculus in her right ureter. She has had a pigtail stent implanted 2 days ago. The patient has a history of bipolar disorder. She is on multiple psychotropic medicines. PHYSICAL EXAMINATION: VITAL SIGNS: Blood pressure is 113/56, pulse 90, respirations 20 per minute, and afebrile. I spoke to nurse who related she has been slightly confused, but does not appear that way right now. MENTAL STATUS: Today reveals that she is awake, alert, coherent, has a slight tremor of her lips and mouth. She is sitting in a chair outside of bed. She slept much better last night. She is oriented x3, recognizes me from yesterday. Recent and remote memory intact. No evidence of psychosis. Her affect is, however, quite constricted appropriate. The patient is somewhat guarded. The patient has no suicidal ideation. LABORATORY DATA: White count is 12,500, hemoglobin is 11.8, and platelet count is 345,000. Her metabolic profile and electrolytes were all normal. BUN 30 and creatinine 1.3. Yesterday's GFR is 41. Random glucose 248. Other abnormal values include AST of 51, she has an ALT of 52, and alkaline phosphatase of 153. Rest of profile was in normal range. IMPRESSION: The patient has resolving sepsis. She has urinary infection. She has stent in ureter for urinary calculus. Her review of systems is unremarkable, 12-point review. Patient has a history of bipolar disorder, was mostly in remission. She has renal insufficiency. PLAN: I will hold the lithium today and tomorrow as to avoid any toxicity and we will check lithium level tomorrow morning. We will check B12, folate and vitamin D levels. We will continue to monitor her mental status. Ray Hernandez MD
[2016-11-02] MEDS ORDERED: Potassium Chloride 10 mEq ER Tab PO ONE (21:00)
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
--- NOTE | 2016-11-03 03:16 | DS ---
HISTORY OF PRESENT ILLNESS: This is a 65-year-old woman known to Dr. Lucas Flores, seen in the office with diabetes and issues related to anxiety and mental health. She lives alone with the daughter in [place] with whom she keeps in contact, but seems she has been managing quiet well on her own in the past many years. She came to emergency room on , some 5 days ago with fever, altered mental status, code sepsis was called. Initially, there was a question of an infiltrate on chest x-ray. The real source of the infection was found and that was an obstructing ureter with kidney stone and pyelonephritis. She was taken to the OR night with Dr. Miranda. Ureteral stent was placed. I saw her in the recovery room postoperatively and the hospital technology resource teacher was called because of the severity of her infection, elevated white count, 103 fever in the recovery room, tachycardia and code sepsis with surgical manipulation of the urinary tract. She was admitted to the intensive care unit for at least overnight observation. Antibiotics were given and continued. Consultations were requested and the patient was followed by Dr. Culp for infectious disease and Dr. Hernandez from psychiatry as well as Dr. Miranda as mentioned above. The patient improved clinically and today Tuesday she was doing very well on the floor, sitting out of bed in the chair. Infectious disease note indicated that she will need some additional days of antibiotics. The patient herself felt too weak and tired to go home, so arrangements were made her to be discharge from the acute care facility and transferred to transitional care unit to complete her course of antibiotics and for an additional course of physical therapy. FINAL DISCHARGE DIAGNOSES: 1. Sepsis. 2. Urinary tract infection. 3. Obstructing kidney stone. 4. Pyelonephritis. 5. Diabetes. 6. Depression. 7. Bipolar disorder, in partial remission. 8. History of hyperthyroidism. 9. Hypertension. 10. Status post cataract surgery. Ryan Flores MD
--- NOTE | 2016-11-04 10:09 | PQF PNEUMO ---
This form is a permanent part of the medical record DR. JOHNSON, Please verify if PNEUMONIA was ruled in or ruled out. Clarification of your documentation is requested to better reflect the severity of illness and intensity of treatment of your patient. Indicators present [] Documented diagnosis of pneumonia [] X-ray findings: [] Positive Sputum cultures [] Cough w/ fever [] Abnormal lungs sounds [] Poor gag reflex [] Speech consults/swallow evaluation [] Vent dependence [] Other: [] Location in the medical record that reflects the above clinical findings: [] Treatment Provided: [] PHYSICIAN'S RESPONSE ; did not have pneumonia Based on your medical judgment of the clinical indicators outlined above, are you treating this patient for a known or suspected: [] Aspiration pneumonia [] Community acquired pneumonia [] Ventilator associated pneumonia [] Viral pneumonia [] Bacterial pneumonia Please specify organism: [] [] Other, please indicate [] If Unable to Determine, please check the box, sign and date. Present On Admission (POA) Indicator: [] Present at the time of admission [XXX] Not present at the time of admission [] Clinically Undetermined In responding to this query, please exercise your independent professional judgment. The fact that a question is asked does not imply that any particular answer is desired or expected. Thank you for your clarification on this documentation. If you have any questions please call:[ ] * Thank you, [ X] [employer] [place]
== END 2016-11-02 15:56 | DRG 872 ==
LOC: ED 13:22 → ERH 15:14 → CCU 20:33 → 3RSO 10-30 16:54 → 3RNO 11-01 18:09
PROVIDERS: ADMIT Internal Medicine; ATTEND Internal Medicine
PROC: 0T768DZ Dilation of Right Ureter with Intraluminal Device, Via Natural or Artificial Opening Endoscopic (ICD-10-PCS; principal; 2016-10-28 17:15)
PROC: 3E0F7GC Introduction of Other Therapeutic Substance into Respiratory Tract, Via Natural or Artificial Opening (ICD-10-PCS; 2016-10-29)
DX: A41.59 Other Gram-negative sepsis (principal); N13.6 Pyonephrosis; E87.0 Hyperosmolality and hypernatremia; E87.2 Acidosis; I11.0 Hypertensive heart disease with heart failure; I50.9 Heart failure, unspecified; M62.82 Rhabdomyolysis; G20 Parkinson's disease; E78.5 Hyperlipidemia, unspecified; F31.9 Bipolar disorder, unspecified; E03.9 Hypothyroidism, unspecified; M19.90 Unspecified osteoarthritis, unspecified site; F41.9 Anxiety disorder, unspecified; E11.65 Type 2 diabetes mellitus with hyperglycemia; D64.9 Anemia, unspecified; R09.02 Hypoxemia; K29.70 Gastritis, unspecified, without bleeding; E05.90 Thyrotoxicosis, unspecified without thyrotoxic crisis or storm; Z79.84 Long term (current) use of oral hypoglycemic drugs; Z91.81 History of falling; Z98.49 Cataract extraction status, unspecified eye; Z87.891 Personal history of nicotine dependence

== ENCOUNTER 2016-11-02 16:31 | Inpatient (IN) | payer OTHER, MEDICARE ==
[2016-11-02 16:50] VITALS: BMI 33.8
[2016-11-02] MEDS ORDERED: Morphine 4 mg/ml ISec IVP PRN (16:57)
[2016-11-02] MEDS ORDERED: ZIPRASIDONE HCL 80 MG PO SCH (18:00)
[2016-11-02] MEDS ORDERED: PRAMIPEXOLE DI HCL 1 MG PO SCH (18:00)
[2016-11-02] MEDS: Cefepime IV 2 gm in NS 2 GM/100 ML BAG IVPB SCH (18:18)
[2016-11-02] MEDS: Lactobacillus Acidophilus 500 MU Cap PO SCH (18:21)
[2016-11-02] MEDS: Insulin Lispro (humaLOG) LOW Coverage SC SCH (21:31)
[2016-11-02] MEDS ORDERED: QUETIAPINE 100 MG PO SCH (22:00)
[2016-11-03] MEDS: Cefepime IV 2 gm in NS 2 GM/100 ML BAG IVPB SCH ×2 (06:08→17:28)
[2016-11-03] MEDS: Levothyroxine 88 MCG TAB PO SCH (06:09)
[2016-11-03] MEDS: Insulin Lispro (humaLOG) LOW Coverage SC SCH ×4 (07:05→21:52)
[2016-11-03] MEDS: Lactobacillus Acidophilus 500 MU Cap PO SCH ×2 (09:00→17:31)
[2016-11-03] MEDS: diltiaZEM 240 mg/24 Hours CD Cap PO SCH (09:01)
--- NOTE | 2016-11-03 15:42 | CP.PCM.CON ---
History of Present Illness - History of Present Illness History of Present Illness: 65 year old female with PMH of HTN, dyslipidemia , history of bipolar disorder, cataracts, hyperthyroidism, obesity with BMI 34 was initially admitted in [facility] because of right flank pain, fevers and was found to have UTI with pyelonephritis on the right with Enterobacter bacteremia, associated with a stone. She underwent pigtail stent placement and has been on antibiotics and has been clinically improving. She is now transferred to [facility] for continued medical therapy and physical rehab. Infectious Diseases consult is requested to continue her antibiotic therapy. She is comfortable, not in distress, denies fever or chills, no nausea or vomiting, no chest pain, no SOB, no headache or dizziness, no abdominal pain, no diarrhea, no dysuria, no flank pain. Review of Systems - Review of Systems All systems: reviewed and no additional remarkable complaints except (as per HPI ) Past Patient History - Infectious Disease Hx of Infectious Diseases: None - Past Social History Smoking Status: Never Smoked - CARDIAC Hx Hypertension: Yes Hx Pacemaker: No - NEUROLOGICAL Hx Parkinson's Disease: Yes - HEENT Hx Cataracts: Yes (b/l sx) - ENDOCRINE/METABOLIC Hx Hyperthyroidism: Yes - HEMATOLOGICAL/ONCOLOGICAL Hx Blood Transfusions: No Hx Blood Transfusion Reaction: No - INTEGUMENTARY Other/Comment: dark skin under both eyes due to "eye drops for cataracts caused swelling, swelling went down and caused darkened skin", ble dry skin - MUSCULOSKELETAL/RHEUMATOLOGICAL Hx Falls: Yes - GASTROINTESTINAL Hx Gastrointestinal Disorders: No - GENITOURINARY/GYNECOLOGICAL Hx Genitourinary Disorders: Yes Hx Reproductive Disorders: No - PSYCHIATRIC Hx Depression: Yes Hx Emotional Abuse: No Hx Physical Abuse: No Hx Substance Use: No Other/Comment: ANXIETY - SURGICAL HISTORY Other/Comment: left breast lump removed negative 2013 - ANESTHESIA Hx Anesthesia: No Hx Anesthesia Reactions: No Hx Malignant Hyperthermia: No Meds Allergies/Adverse Reactions: Allergies Allergy/AdvReac Type Severity Reaction Status Date / Time No Known Allergies Allergy Verified 07/24/12 09:59 - Medications Medications: Current Medications Acetaminophen (Tylenol 325mg Tab) 650 mg PO Q6H PRN; Protocol PRN Reason: Fever >100.4 F Diltiazem HCl (Cardizem Cd) 240 mg PO DAILY [facility] PRN Reason: Protocol Famotidine (Pepcid) 20 mg PO 1000,2200 [facility] PRN Reason: Protocol Furosemide (Lasix) 40 mg IVP 0600,1800 [facility] PRN Reason: Protocol Last Admin: 11/02/16 18:16 Dose: 40 mg Heparin Sodium (Porcine) (Heparin) 5,000 units SC 0600,1800 [facility] PRN Reason: Protocol Last Admin: 11/02/16 18:16 Dose: 5,000 units Cefepime HCl (Maxipime 2gm) 2 gm in 100 mls @ 100 mls/hr IVPB 0600,1800 [facility] PRN Reason: Protocol Stop: 11/07/16 18:01 Last Admin: 11/02/16 18:18 Dose: 100 mls/hr Insulin Human Lispro (Humalog Low) 0 units SC ACHS [facility] PRN Reason: Protocol Lactobacillus Acidophilus (Bacid Acidophilus) 1 cap PO BID [facility] PRN Reason: Protocol Last Admin: 11/02/16 18:21 Dose: 1 cap Levothyroxine Sodium (Synthroid) 88 mcg PO 0630 [facility] PRN Reason: Protocol Losartan Potassium (Cozaar) 50 mg PO DAILY [facility] PRN Reason: Protocol Morphine Sulfate (Morphine) 4 mg IVP Q4H PRN; Protocol PRN Reason: Pain, severe (8-10) Phenazopyridine HCl (Pyridium) 200 mg PO 0800,1200,1800 [facility] PRN Reason: Protocol Last Admin: 11/02/16 18:22 Dose: 200 mg Pramipexole Dihydrochloride (Mirapex) 1 mg PO TID [facility] Last Admin: 11/02/16 18:17 Dose: 1 mg Quetiapine Fumarate (Seroquel) 100 mg PO HS [facility] Ziprasidone (Geodon Cap) 60 mg PO BID [facility] Last Admin: 11/02/16 18:19 Dose: 60 mg Ziprasidone (Geodon Cap) 20 mg PO BID [facility] Last Admin: 11/02/16 18:18 Dose: 20 mg Physical Exam - Constitutional Appears: Non-toxic, No Acute Distress - Head Exam Head Exam: NORMAL INSPECTION - ENT Exam ENT Exam: Mucous Membranes Moist - Neck Exam Neck exam: Negative for: Lymphadenopathy, Meningismus - Respiratory Exam Respiratory Exam: Decreased Breath Sounds - Cardiovascular Exam Cardiovascular Exam: +S1, +S2 - GI/Abdominal Exam GI & Abdominal Exam: Soft. absent: Tenderness Results - Vital Signs Recent Vital Signs: Last Vital Signs Temp 97.6 F 11/02/16 16:46 Pulse 85 11/02/16 16:46 Resp 20 11/02/16 16:46 BP 115/58 L 11/02/16 18:16 Pulse Ox Assessment & Plan - Assessment and Plan (Free Text) Plan: Assessment Sepsis due to Enterobacter asburiae bacteremia from pyelonephritis and infected ureterolithiasis S/P pigtail stent placement on the right POD #6 HTN dyslipidemia history of bipolar disorder cataracts hyperthyroidism Plan continue Cefepime (total day 6) and will continue to monitor clinically - patient should receive 10-14 days of antibiotics
--- NOTE | 2016-11-03 22:28 | PN ---
DATE: SUBJECTIVE: The patient is a 65-year-old female with history of parkinsonism, gastritis, depression, anxiety, and status post left breast lumpectomy, who is admitted with sepsis. She was found to have a calculus in the right ureter, pigtail stent was placed by Dr. Miranda on the day of admission. The patient during her hospital stay underwent echocardiography, which showed 65% ejection fraction and was essentially normal. Carotid Doppler showed bilateral 20-40% stenosis. Follow up chest x-ray showed increased interstitial markings, which could have been consistent with pneumonia. The patient has been treated with intravenous Rocephin. Cultures of the urine and blood show Enterobacter, which was resistant to Kefzol. Dr. Culp, the Infectious Disease specialist then discontinued the Rocephin and changed the patient to meropenem. Of note, the patient apparently fell at home. There was a question of a subcapital fracture; however, as of yesterday, the patient was transferred to the transitional care unit. Today, she says she was ambulating well with no pain in that hip; therefore, I feel that this is not a problem. At this point, we are continuing with the current medication for the patient. She continued to be followed by Dr. Culp, Dr. Dejesus, and Dr. Hernandez. We are encouraging physical therapy and following the patient closely. Lucas Flores MD
--- NOTE | 2016-11-04 03:00 | CON ---
DATE: HISTORY OF PRESENT ILLNESS: The patient is a 65-year-old white female. The patient is apparently being admitted to transitional care unit for physical therapy due to gait dysfunction and debilitation. She was treated on the medical-surgical service due to UTI with pyelonephritis and the right ureter with Enterobacter bacteremia associated with stone. She had a pigtail stent placement. She has a history of bipolar disorder. She has been on multiple psychotropic medications including lithium therapy, which was held yesterday due to renal insufficiency. PAST MEDICAL HISTORY: The patient's past history in addition to bipolar disorder includes past psychiatric hospitalizations at [facility] and [facility] many years ago. She is seeing a psychiatrist on a regular basis. She had a left breast lumpectomy in the past, which was benign. She has history of hypertension, Parkinson's disease treated by neurologist, has a history of arthritis, hyperthyroidism, hyperlipidemia, and diabetes mellitus. PERSONAL HISTORY: She lives alone. She has 2 children. She has been twice. No history of substance or alcohol abuse. She sees a psychiatrist every several months. LABORATORY DATA: The patient's current laboratory data; white count is 4500, hemoglobin 11.7, and platelet count 345,000. Her metabolic profile from yesterday; electrolytes were intact, BUN was 30, creatinine 1.3, estimated GFR of 41, random glucose 291, AST 51, ALT 52, alkaline phosphatase 153. Rest of profile is normal. CURRENT MEDICATIONS: The patient's current medications are as follows that include acidophilus, Cardizem, Cozaar, Geodon 80 mg b.i.d., heparin, Humalog protocol, Maxipime IV, Mirapex, p.r.n. morphine, Pepcid, Pyridium, Seroquel 100 mg a day at bedtime, and Synthroid 88 mcg q.a.m. The patient had a last lithium level yesterday of 0.5 mmol. REVIEW OF SYSTEMS: Currently, she has constant urination at nights, interrupt sleep; otherwise rest of 12-point review are noncontributory. PHYSICAL EXAMINATION: VITAL SIGNS: Blood pressure 127/72, pulse 49, respirations 14 per minute, and afebrile, NEUROLOGIC: She has slight tremor of her lips and head. PSYCHIATRIC: Mental status; she is awake and alert. Constricted affect. Oriented x3. Aware of her surroundings. No suicidal ideation or obvious psychotic symptomatology. Mood is euthymic. IMPRESSION: 1. History of bipolar disorder, mixed type, partially in remission. 2. History of Parkinson disease. 3. History of urinary tract infection. 4. Sepsis. 5. Renal calculi. 6. History of hypertension. 7. Renal Insufficiency PLAN: We will monitor psychotropic medicines. We will increase Seroquel to 150 mg p.o. at bedtime and continue Latuda at reduced dose of 60 mg BID and also will remain off of the lithium for now and we will reevaluate tomorrow her mental status. Ray Hernandez MD CHING
[2016-11-04] MEDS: Cefepime IV 2 gm in NS 2 GM/100 ML BAG IVPB SCH ×2 (05:21→18:48)
[2016-11-04] MEDS: Insulin Lispro (humaLOG) LOW Coverage SC SCH ×4 (06:56→21:30)
[2016-11-04] MEDS: Levothyroxine 88 MCG TAB PO SCH (07:04)
[2016-11-04] MEDS: Lactobacillus Acidophilus 500 MU Cap PO SCH ×2 (10:43→18:49)
[2016-11-04] MEDS: diltiaZEM 240 mg/24 Hours CD Cap PO SCH (10:43)
--- NOTE | 2016-11-04 14:11 | PN ---
DATE: SUBJECTIVE: The patient is a 65-year-old white female currently being treated on transitional care unit. Following treatment on the medical surgical floor for severe urinary infection. She had also a stent put in her right ureter due to obstructing calculi. She also has bacteremia associated with stone. The patient's UTI as associated with pyelonephritis with Enterobacter. The patient has a history of bipolar disorder for which we have been following the patient. She has previously been on [place], which has been held for the time being. Her [place] level today was 0.3 despite not having for two to three days. The patient's mental status reveals that she is awake, alert, coherent, slept better last night on an increased dose of Seroquel 150 mg. She is also on a reduced dose of Geodon 60 mg b.i.d. She is having some slight twitching of her lips, mouth which has decreased with the decrease dose of Geodon. She is also being treated outside for Parkinson's disease with Mirapex 1 mg t.i.d. MEDICATIONS: The patient's other medications include acidophilus, Cardizem, Cozaar, heparin, Humalog protocol, Lasix, Maxipime IV, Mirapex, p.r.n. morphine, Pepcid, Pyridium, and Synthroid. LABORATORY DATA: She has a glucose today of 242. As noted, her lithium level is 0.3. PHYSICAL EXAMINATION: VITAL SIGNS: Blood pressure 130/64, pulse 49, afebrile, respirations 14 per minute. The patient is having no adverse effects from current psychotropic medications. REVIEW OF SYSTEM: Other review of systems noncontributory as 12-point review. IMPRESSION: 1. Bipolar disorder, mostly partially remission. 2. She has Enterobacter bacteremia, status post renal calculi with pigtail stents. 3. She has history of hypothyroidism. 4. Parkinson's disease. PLAN: Continue Geodon 60 mg b.i.d. Continue Seroquel 150 mg at bedtime. We will continue to monitor her mental status. Ray Hernandez MD
--- NOTE | 2016-11-04 20:15 | PN ---
DATE: 11/04/2016 SUBJECTIVE: The patient is in bed, in no acute distress, nontoxic. PHYSICAL EXAMINATION VITAL SIGNS: On exam, temperature is 97, blood pressure is 120/60, respiratory rate of 18. HEENT: Unremarkable. NECK: Supple. LUNGS: Decreased breath sounds. HEART EXAM: Normal S1 and S2. ABDOMINAL EXAMINATION: Soft, nontender. LABORATORY EXAMINATION: Reviewed. ASSESSMENT AND PLAN: A 65-year-old female with sepsis due to Enterobacter asburiae bacteremia, pyelonephritis, infected ureterolithiasis and status post pigtail stent placement on the right, postprocedure day #7 in a patient with hypertension, dyslipidemia, history of bipolar disorder, cataract and hypothyroidism and cefepime day #7 and would complete 10 to 14 days of antibiotics. Review of the orders reveals the patient to be on cefepime. Karl Culp MD
[2016-11-05] MEDS: Levothyroxine 88 MCG TAB PO SCH (05:54)
[2016-11-05] MEDS: Cefepime IV 2 gm in NS 2 GM/100 ML BAG IVPB SCH ×2 (05:59→17:20)
[2016-11-05] MEDS: Insulin Lispro (humaLOG) LOW Coverage SC SCH ×4 (06:36→22:01)
[2016-11-05] MEDS: Lactobacillus Acidophilus 500 MU Cap PO SCH ×2 (09:14→17:18)
[2016-11-05] MEDS: diltiaZEM 240 mg/24 Hours CD Cap PO SCH (09:17)
--- NOTE | 2016-11-05 20:19 | CP.PCM.PN ---
Subjective - Date & Time of Evaluation Date of Evaluation: 11/05/16 Time of Evaluation: 11:20 - Subjective Subjective: Comfortable in bed, no fevers overnight, no abdominal pain, no dysuria, no flank pain. Objective - Vital Signs/Intake and Output Vital Signs (last 24 hours): Temp Pulse Resp BP Pulse Ox 98.2 F 91 H 18 124/73 92 L 11/05/16 05:26 11/05/16 09:17 11/05/16 05:26 11/05/16 09:17 11/05/16 05:26 - Medications Medications: Current Medications Acetaminophen (Tylenol 325mg Tab) 650 mg PO Q6H PRN; Protocol PRN Reason: Fever >100.4 F Diltiazem HCl (Cardizem Cd) 240 mg PO DAILY [facility] PRN Reason: Protocol Last Admin: 11/05/16 09:17 Dose: 240 mg Famotidine (Pepcid) 20 mg PO 1000,2200 [facility] PRN Reason: Protocol Last Admin: 11/05/16 09:14 Dose: 20 mg Furosemide (Lasix) 40 mg IVP 0600,1800 [facility] PRN Reason: Protocol Last Admin: 11/05/16 05:58 Dose: Not Given Glipizide (Glucotrol) 5 mg PO 0700 [facility] Heparin Sodium (Porcine) (Heparin) 5,000 units SC 0600,1800 [facility] PRN Reason: Protocol Last Admin: 11/05/16 05:53 Dose: 5,000 units Cefepime HCl (Maxipime 2gm) 2 gm in 100 mls @ 100 mls/hr IVPB 0600,1800 [facility] PRN Reason: Protocol Stop: 11/07/16 18:01 Last Admin: 11/05/16 05:59 Dose: 100 mls/hr Insulin Human Lispro (Humalog Low) 0 units SC ACHS [facility] PRN Reason: Protocol Last Admin: 11/05/16 06:36 Dose: 3 units Lactobacillus Acidophilus (Bacid Acidophilus) 1 cap PO BID [facility] PRN Reason: Protocol Last Admin: 11/05/16 09:14 Dose: 1 cap Levothyroxine Sodium (Synthroid) 88 mcg PO 0630 [facility] PRN Reason: Protocol Last Admin: 11/05/16 05:54 Dose: 88 mcg Losartan Potassium (Cozaar) 50 mg PO DAILY [facility] PRN Reason: Protocol Last Admin: 11/05/16 09:17 Dose: 50 mg Metformin HCl (Glucophage) 500 mg PO BID [facility] Last Admin: 11/05/16 09:08 Dose: 500 mg Morphine Sulfate (Morphine) 4 mg IVP Q4H PRN; Protocol PRN Reason: Pain, severe (8-10) Phenazopyridine HCl (Pyridium) 200 mg PO 0800,1200,1800 [facility] PRN Reason: Protocol Last Admin: 11/04/16 18:53 Dose: 200 mg Pramipexole Dihydrochloride (Mirapex) 1 mg PO TID [facility] Last Admin: 11/04/16 18:48 Dose: 1 mg Quetiapine Fumarate (Seroquel) 100 mg PO HS [facility] Last Admin: 11/04/16 21:35 Dose: 100 mg Quetiapine Fumarate (Seroquel) 50 mg PO HS [facility] Last Admin: 11/04/16 21:35 Dose: 50 mg Ziprasidone (Geodon Cap) 60 mg PO BID [facility] Last Admin: 11/05/16 09:14 Dose: 60 mg - Constitutional Appears: Non-toxic, No Acute Distress - Head Exam Head Exam: NORMAL INSPECTION - Neck Exam Neck Exam: absent: Meningismus - Respiratory Exam Respiratory Exam: Decreased Breath Sounds - Cardiovascular Exam Cardiovascular Exam: +S1, +S2 - GI/Abdominal Exam GI & Abdominal Exam: Soft. absent: Tenderness Assessment and Plan - Assessment and Plan (Free Text) Plan: Assessment Sepsis due to Enterobacter asburiae bacteremia from pyelonephritis and infected ureterolithiasis S/P pigtail stent placement on the right POD #8 HTN dyslipidemia history of bipolar disorder cataracts hyperthyroidism Plan continue Cefepime (total day 8) and will continue to monitor clinically - patient should receive 10-14 days of antibiotics
--- NOTE | 2016-11-05 23:27 | PN ---
DATE: SUBJECTIVE: The patient is a 65-year-old female with long history of bipolar versus schizoaffective disorder. She is currently on transitional care unit rehab following sepsis and urinary tract infection. She currently her .psychotropic medications have been adjusted recent days. Her major complaint is sleeping poor during the night, waking up frequently. The patient is awake, she is alert, she is oriented x3. She is aware of her medical problems and aware of the fact that she is going home tomorrow. PHYSICAL EXAMINATION: VITAL SIGNS: Blood pressure is 145/75, pulse 70, respirations 18 per minute and afebrile. LABORATORY DATA: The patient's most recent laboratory data she has random glucose of 211. CURRENT MEDICATIONS: Include acidophilus, Cardizem, Cozaar, Geodon 60 mg b.i.d., Glucophage,Glucotrol, heparin, Humalog, Lasix, Maxipime, Mirapex, Pepcid, Pyridium, and Synthroid. IMPRESSION: The patient has bipolar disorder in partial remission. She has sepsis due to her Enterobacter. Pyelonephritis. She has renal calculi, pigtail stent. The patient is on procedure day #7. The patient has a history of hypothyroidism. PLAN: We will increase the night's Seroquel 200 mg at bedtime and continue Geodon 60 b.i.d. and give the patient instructions for outpatient therapy, she will followup with her outpatient psychiatrist. Ray Hernandez MD
[2016-11-06] MEDS: Cefepime IV 2 gm in NS 2 GM/100 ML BAG IVPB SCH (05:37)
[2016-11-06] MEDS: Levothyroxine 88 MCG TAB PO SCH (05:38)
[2016-11-06] MEDS: Insulin Lispro (humaLOG) LOW Coverage SC SCH ×2 (06:30→12:03)
[2016-11-06 07:24] LABS: BASO # 0.03 K/mm3 (0.0-2.0); BASO % 0.3 % (0.0-3.0); EOS # 0.3 (0.0-0.7); GRAN # 7.29 (1.4-6.5); GRAN % 71.2 % (50.0-68.0); HEMATOCRIT 36.1 % (36.0-48.0); LYMPH % 19.4 % (22.0-35.0); MEAN CELL VOLUME 93.8 fl (80.0-105.0); MEAN CORPUSCULAR HEMOGLOBIN 28.8 pg (25.0-35.0); MEAN CORPUSCULAR HGB CONC 30.7 g/dl (31.0-37.0); MEAN PLATELET VOLUME 10.8 fl (7.0-11.0); MONO # 0.6 (0.1-0.6); MONO % 6.1 % (1.0-6.0); WHITE BLOOD COUNT 10.2 10^3/ul (4.5-11.0)
[2016-11-06 07:39] LABS: ALKALINE PHOSPHATASE 147 U/L (38-126); ALT/SGPT 47 U/L (7-56); AST/SGOT 35 U/L (14-36); BILIRUBIN,TOTAL 0.4 mg/dL (0.2-1.3); BLOOD UREA NITROGEN 27 mg/dL (7-21); CARBON DIOXIDE 22 mmol/L (21-33); CHLORIDE 109 mmol/L (98-107); GFR AFRICAN-AMERICAN > 60; GLUCOSE,RANDOM 218 mg/dL (70-110); POTASSIUM 4.3 mmol/L (3.6-5.0); SODIUM 142 mmol/L (132-148); TOTAL PROTEIN 7.3 g/dL (5.8-8.3)
[2016-11-06] MEDS: Lactobacillus Acidophilus 500 MU Cap PO SCH (10:17)
[2016-11-06] MEDS: diltiaZEM 240 mg/24 Hours CD Cap PO SCH (10:17)
[2016-11-06 10:23] VITALS: BP 111/75; PULSE 94
[2016-11-06 11:06] VITALS: RESP 14; TEMP 98.1; O2SAT 100
--- NOTE | 2016-11-08 08:49 | DS ---
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 She is a code sepsis patient and taken to the OR, stents were placed. She needs antibiotics and IV fluids were given and then she was transferred to the transitional care unit to continue her course of antibiotics. This is a discharge summary from that brief stay in the transitional care unit. The patient did well while on TCU. She engaged in the activities in the unit, was seen ambulating in the halls comfortably and rather well. Antibiotics continued. She was followed by Urology, as well as Infectious Disease. I spoke with the Infectious Disease senior application security consultant Dr. Zurita and we believe 9 days of antibiotics would be adequate since the patient was clinically well with a normal white count, afebrile, and very much empowered to going home. She was discharged to home today, Tuesday11/06/2016 on Cipro 250 mg b.i.d. She will follow up with us in the office this week and followup with Dr. Miranda, her urologist the following week. FINAL DISCHARGE DIAGNOSES: 1. Deconditioning due to recent hospitalization. 2. Recent hospitalization due to sepsis with pyelonephritis and obstructing ureter. 3. Sepsis with pyelonephritis and obstructing ureter. 4. Diabetes. 5. Hypertension. Ryan Flores MD
== END 2016-11-06 16:12 | disposition home or self-care (01) | DRG 872 ==
LOC: TRCU 16:31
PROVIDERS: ADMIT Internal Medicine; ATTEND Internal Medicine
PROC: F07Z9FZ Gait Training/Functional Ambulation Treatment using Assistive, Adaptive, Supportive or Protective Equipment (ICD-10-PCS; principal; 2016-11-03)
PROC: F07M6ZZ Therapeutic Exercise Treatment of Musculoskeletal System - Whole Body (ICD-10-PCS; 2016-11-03)
DX: A41.59 Other Gram-negative sepsis (principal); G20 Parkinson's disease; F31.60 Bipolar disorder, current episode mixed, unspecified; N12 Tubulo-interstitial nephritis, not specified as acute or chronic; N20.2 Calculus of kidney with calculus of ureter; W19.XXXA Unspecified fall, initial encounter; E05.90 Thyrotoxicosis, unspecified without thyrotoxic crisis or storm; E03.9 Hypothyroidism, unspecified; E11.9 Type 2 diabetes mellitus without complications; E78.5 Hyperlipidemia, unspecified; H26.9 Unspecified cataract; I10 Essential (primary) hypertension; Y92.009 Unspecified place in unspecified non-institutional (private) residence as the place of occurrence of the external cause; Z79.899 Other long term (current) drug therapy; Z87.440 Personal history of urinary (tract) infections; F41.9 Anxiety disorder, unspecified; M19.90 Unspecified osteoarthritis, unspecified site

== ENCOUNTER 2016-12-07 08:51 | Day surgery (SDC) | payer MEDICARE ==
[2016-12-02 08:50] VITALS: BMI 34.0
[2016-12-07] MEDS ORDERED: Piperacillin/Tazobact 3.375 gm 100 ML IVPB STA (10:40)
[2016-12-07] MEDS ORDERED: cefTRIAXone (Rocephin) 1 gm Inj ONE (10:43)
[2016-12-07] MEDS ORDERED: Lidocaine 2% Jelly (Uro-Jet) ONE (10:43)
[2016-12-07] MEDS ORDERED: Iohexol 240 (50 ml) ONE (10:43)
[2016-12-07] MEDS ORDERED: Propofol 10 mg/ml Inj (20 ML) ONE (10:51)
[2016-12-07] MEDS ORDERED: Midazolam 2 MG/2 ML VIAL ONE (10:51)
[2016-12-07] MEDS ORDERED: Lactated Ringer's 1,000 ML IV SCH (11:45)
--- NOTE | 2016-12-07 12:47 | RAD ---
PROCEDURE: Retrograde pyelogram HISTORY: RT nephroureteral stent, RT lithotripsy COMPARISON: TECHNIQUE: Fluoroscopy was provided in the operating room. 15.2 seconds of fluoroscopy time were used. Six images were submitted FINDINGS: The stone is seen in the right kidney. There is placement of a right ureteral stent. IMPRESSION: As above
[2016-12-07 12:56] VITALS: RESP 18; TEMP 97.7
[2016-12-07 13:11] VITALS: BP 150/72; PULSE 76; O2SAT 96
--- NOTE | 2016-12-07 19:38 | OP ---
PROCEDURE DATE: 12/07/2016 PREOPERATIVE DIAGNOSIS: Obstructing distal right ureteral calculus. POSTOPERATIVE DIAGNOSIS: Obstructing distal right ureteral calculus. PROCEDURES: Cystoscopy, extraction of right pigtail stent, right ureteroscopy with laser lithotripsy of distal ureteral calculus, and insertion of right pigtail stent. SURGEON: Meng Miranda MD TYPE OF ANESTHESIA: LMA. DESCRIPTION OF PROCEDURE: After adequate LMA anesthesia was given, the patient was placed lithotomy, prepped and draped in the usual manner. A 22-Finnish cystourethroscope was introduced under direct vision. The changes in the bladder were the same, as when the stent was first placed, except for the stent extruding from the right ureteral orifice. It was grasped with a grasper, brought out through the meatus, a 0.35 sensor wire was then advanced up through the stent up to the kidney. The stent was removed leaving the sensor wire in place. The bladder was then drained. The cystoscope was removed and a 7-Finnish ureteroscope semirigid was then introduced under direction vision with usually going up the ureteral orifice up to the stone, which was then lasered with a Holmium laser at the setting of 6 and 6 until it was in minute pieces. The rest of the ureter appeared normal. The ureteroscope was removed under vision. The ureter was completely intact with no evidence of any damage. The sensor wire was then back-loaded on to the 20-Finnish cystourethroscope and over the sensor wire, a 6-Finnish 24 cm pigtail stent was easily placed and properly placed. The wire was removed and stent coiled up nicely in the renal pelvis and in the bladder. The bladder was drained. The cystoscope was removed. The patient was awakened and brought to the recovery room in good condition. Meng Miranda MD
== END 2016-12-07 13:45 | disposition home or self-care (01) ==
LOC: SDS 08:51
PROVIDERS: ATTEND Urology
DX: N20.1 Calculus of ureter (principal); I10 Essential (primary) hypertension; E11.9 Type 2 diabetes mellitus without complications
CPT/HCPCS: 52356; 74420; 82948; 87086; C1758; C1769; C2625; J2250; J2405; J2543; J2704; J3010; J7120 ×2; Q9966